=== PATIENT | male | born 2000 | race African-American/Black ===

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

== ENCOUNTER 2022-02-21 20:00 | Inpatient (IN) | payer OTHER ==
--- NOTE | 2022-02-21 20:40 | XR ---
EXAMINATION TYPE: XR chest 2V DATE OF EXAM: 02/21/2022 COMPARISON: 07/11/2016 HISTORY: Cough and congestion TECHNIQUE: FINDINGS: Heart is within normal limits. There is tracheostomy tube. There is pulmonary interstitial edema. There is some blunting of the costophrenic angles. Bony thorax is intact IMPRESSION: There is bilateral pleural effusions and some pulmonary interstitial and airspace infiltr ates that could relate to bilateral pneumonia. This appears new compared to the old exam. Heart size is normal.
[2022-02-21] MEDS ORDERED: IPRATROPIUM-ALBUTEROL 3 ML NEB INHALATION STA (21:11)
[2022-02-21] MEDS ORDERED: SODIUM CHLORIDE 0.9% 500 ML 500 ML IV STA (21:16)
--- NOTE | 2022-02-21 21:16 | ED ---
Chest Pain HPI - General Chief Complaint: Chest Pain Stated Complaint: Chest Pain/SIVAN Time Seen by Provider: 02/21/22 21:08 Source: patient, family, RN notes reviewed Mode of arrival: ambulatory Limitations: no limitations - History of Present Illness Initial Comments: 21-year-old male with a history of brain tumor and tracheostomy over a year ago who was recently treated for pneumonia and bronchitis antibiotics. He comes in today because of shortness of breath cough with yellow phlegm and chest pain with breathing and coughing. He also has some shortness of breath he denies any overt fevers chills or sweats at this time. MD Complaint: chest pain, other - Related Data Home Medications Medication Instructions Recorded Confirmed No Known Home Medications 02/18/16 04/17/19 Allergies Allergy/AdvReac Type Severity Reaction Status Date / Time No Known Allergies Allergy Verified 02/21/22 20:07 Review of Systems ROS Statement: Those systems with pertinent positive or pertinent negative responses have been documented in the HPI. ROS Other: All systems not noted in ROS Statement are negative. Past Medical History Past Medical History: No Reported History History of Any Multi-Drug Resistant Organisms: None Reported Past Surgical History: No Surgical Hx Reported Past Psychological History: ADD/ADHD Smoking Status: Current some day smoker Past Alcohol Use History: None Reported Past Drug Use History: None Reported, Marijuana General Exam - General Exam Comments Initial Comments: This is a well-developed asthenic appearing male was awake alert oriented 3 Limitations: no limitations General appearance: alert, anxious Head exam: Present: atraumatic, normocephalic, normal inspection Eye exam: Present: normal appearance, PERRL, EOMI. Absent: scleral icterus, conjunctival injection, periorbital swelling ENT exam: Present: normal exam, mucous membranes moist Neck exam: Present: full ROM, other (Tracheostomy in place). Absent: tenderness, meningismus, lymphadenopathy Respiratory exam: Present: rhonchi (Left lower lobe rhonchi), decreased breath sounds. Absent: respiratory distress, wheezes, rales, stridor Cardiovascular Exam: Present: normal rhythm, tachycardia, normal heart sounds. Absent: systolic murmur, diastolic murmur, rubs, gallop, clicks GI/Abdominal exam: Present: soft, normal bowel sounds. Absent: distended, tenderness, guarding, rebound, rigid Extremities exam: Present: normal inspection, full ROM, normal capillary refill. Absent: tenderness, pedal edema, joint swelling, calf tenderness Back exam: Present: normal inspection Neurological exam: Present: alert, oriented X3, CN II-XII intact Psychiatric exam: Present: normal affect, normal mood Skin exam: Present: warm, dry, intact, normal color. Absent: rash Course Vital Signs 02/21/22 02/21/22 02/21/22 20:02 21:42 21:52 Temperature 98.8 F Pulse Rate 121 H 120 H 120 H Respiratory 24 Rate Blood Pressure 133/87 O2 Sat by Pulse 92 L Oximetry Chest Pain MDM - MDM Imaging reviewed as well as reports evidence of bilateral lower lobe infiltrate. Patient will be admitted I did discuss the findings with Talha who is covering for Dr. Rodriguez patient be admitted with pulmonary consultation Disposition Clinical Impression: Bilateral pneumonia, Dehydration, Tachycardia, Back pain Disposition: ADMITTED IP TO THIS [facility] Condition: Fair Referrals: Nonstaff,Physician [Primary Care Provider] - 1-2 days Decision Date: 02/21/22 Decision Time: 22:50
[2022-02-21 22:36] LABS: Basophils % (A) 0 %; Eosinophils % (A) 1 %; HGB 12.8 gm/dL (13.0-17.5); Lymphocytes # (A) 1.1 k/uL (1.0-4.8); Lymphocytes % (A) 14 %; MCH 29.5 pg (25.0-35.0); MCV 92.1 fL (80.0-100.0); Mean Platelet Volume 7.5; Monocytes # (A) 0.3 k/uL (0-1.0); Monocytes % (A) 4 %; Neutrophils # (A) 6.4 k/uL (1.3-7.7); Neutrophils % (A) 80 %; Platelet Count 367 k/uL (150-450); RBC 4.35 m/uL (4.30-5.90)
[2022-02-21 22:46] LABS: Partial Thromboplastin Time 29.1 sec (22.0-30.0); Prothrombin Time 10.9 sec (9.0-12.0)
[2022-02-21 22:48] LABS: ALT 9 U/L (4-49); AST 22 U/L (17-59); African American GFR (CKD) >90 (>60 ml/min/1.73 sqM); Albumin 3.7 g/dL (3.5-5.0); Alkaline Phosphatase 92 U/L (38-126); Anion Gap 12 mmol/L; Blood Urea Nitrogen 20 mg/dL (9-20); Carbon Dioxide 29 mmol/L (22-30); Chloride 92 mmol/L (98-107); Glucose 92 mg/dL (74-99); Magnesium 2.1 mg/dL (1.6-2.3); Non-African American GFR(CKD) >90 (>60 ml/min/1.73 sqM); Potassium 4.6 mmol/L (3.5-5.1); Sodium 133 mmol/L (137-145); Total Bilirubin 0.4 mg/dL (0.2-1.3); Total Protein 7.7 g/dL (6.3-8.2)
[2022-02-21] MEDS ORDERED: IPRATROPIUM-ALBUTEROL 3 ML NEB INHALATION PRN (22:51)
[2022-02-21] MEDS ORDERED: PNEUMONIA PROTOCOL UTILIZED 1 EACH MISC PO PRN (22:51)
[2022-02-21] MEDS ORDERED: AZITHROMYCIN 500 MG in SODIUM CHLORIDE 0.9% 250 ML IVPB STA (22:51)
[2022-02-21] MEDS ORDERED: ACETAMINOPHEN TAB 325 MG TAB PO PRN (22:51)
[2022-02-21] MEDS ORDERED: HYDROmorphone 1 MG/ML 1 ML SYRINGE IVP STA (22:53)
[2022-02-21] MEDS: SODIUM CHLORIDE 0.9% 1,000 ML IV STA (23:21)
[2022-02-21] MEDS ORDERED: HEPARIN SODIUM 1,000 UN/ML (10ML VL) IV ONE (23:28)
[2022-02-21] MEDS ORDERED: ASPIRIN 81 MG PO STA (23:28)
[2022-02-21] MEDS ORDERED: NITROGLYCERIN SL TABS 0.4 MG TAB SUBLINGUAL PRN (23:28)
--- NOTE | 2022-02-21 23:28 | ED ---
Medical Decision Making - Medical Decision Making The patient's troponin came back elevated at 0.166 is in the NSTEMI range. Cardiology will be consulted in the a.m. EKG at the time of treatment showed a sinus tachycardia rate 138 DC interval 142 QRS duration 99 QT/QTC 254/334 left posterior fascicular block no definitive ST-T wave elevations or depressions - Lab Data Result diagrams: 02/21/22 21:29 02/21/22 21:29 Lab Results 02/21/22 02/21/22 02/21/22 Range/Units 21:29 21:29 21:29 WBC 8.0 (3.8-10.6) k/uL RBC 4.35 (4.30-5.90) m/uL Hgb 12.8 L (13.0-17.5) gm/dL Hct 40.0 (39.0-53.0) % MCV 92.1 (80.0-100.0) fL MCH 29.5 (25.0-35.0) pg MCHC 32.0 (31.0-37.0) g/dL RDW 14.0 (11.5-15.5) % Plt Count 367 (150-450) k/uL MPV 7.5 Neutrophils % 80 % Lymphocytes % 14 % Monocytes % 4 % Eosinophils % 1 % Basophils % 0 % Neutrophils # 6.4 (1.3-7.7) k/uL Lymphocytes # 1.1 (1.0-4.8) k/uL Monocytes # 0.3 (0-1.0) k/uL Eosinophils # 0.0 (0-0.7) k/uL Basophils # 0.0 (0-0.2) k/uL PT 10.9 (9.0-12.0) sec INR 1.0 (<1.2) APTT 29.1 (22.0-30.0) sec Sodium 133 L (137-145) mmol/L Potassium 4.6 (3.5-5.1) mmol/L Chloride 92 L (98-107) mmol/L Carbon Dioxide 29 (22-30) mmol/L Anion Gap 12 mmol/L BUN 20 (9-20) mg/dL Creatinine 0.75 (0.66-1.25) mg/dL Est GFR (CKD-EPI)AfAm >90 (>60 ml/min/1.73 sqM) Est GFR (CKD-EPI)NonAf >90 (>60 ml/min/1.73 sqM) Glucose 92 (74-99) mg/dL Plasma Lactic Acid Filipe (0.7-2.0) mmol/L Calcium 9.0 (8.4-10.2) mg/dL Magnesium 2.1 (1.6-2.3) mg/dL Total Bilirubin 0.4 (0.2-1.3) mg/dL AST 22 (17-59) U/L ALT 9 (4-49) U/L Alkaline Phosphatase 92 (38-126) U/L Troponin I (0.000-0.034) ng/mL NT-Pro-B Natriuret Pep pg/mL Total Protein 7.7 (6.3-8.2) g/dL Albumin 3.7 (3.5-5.0) g/dL 02/21/22 02/21/22 02/21/22 Range/Units 21:29 21:29 22:00 WBC (3.8-10.6) k/uL RBC (4.30-5.90) m/uL Hgb (13.0-17.5) gm/dL Hct (39.0-53.0) % MCV (80.0-100.0) fL MCH (25.0-35.0) pg MCHC (31.0-37.0) g/dL RDW (11.5-15.5) % Plt Count (150-450) k/uL MPV Neutrophils % % Lymphocytes % % Monocytes % % Eosinophils % % Basophils % % Neutrophils # (1.3-7.7) k/uL Lymphocytes # (1.0-4.8) k/uL Monocytes # (0-1.0) k/uL Eosinophils # (0-0.7) k/uL Basophils # (0-0.2) k/uL PT (9.0-12.0) sec INR (<1.2) APTT (22.0-30.0) sec Sodium (137-145) mmol/L Potassium (3.5-5.1) mmol/L Chloride (98-107) mmol/L Carbon Dioxide (22-30) mmol/L Anion Gap mmol/L BUN (9-20) mg/dL Creatinine (0.66-1.25) mg/dL Est GFR (CKD-EPI)AfAm (>60 ml/min/1.73 sqM) Est GFR (CKD-EPI)NonAf (>60 ml/min/1.73 sqM) Glucose (74-99) mg/dL Plasma Lactic Acid Filipe 1.0 (0.7-2.0) mmol/L Calcium (8.4-10.2) mg/dL Magnesium (1.6-2.3) mg/dL Total Bilirubin (0.2-1.3) mg/dL AST (17-59) U/L ALT (4-49) U/L Alkaline Phosphatase (38-126) U/L Troponin I 0.166 H* (0.000-0.034) ng/mL NT-Pro-B Natriuret Pep 1800 pg/mL Total Protein (6.3-8.2) g/dL Albumin (3.5-5.0) g/dL Critical Care Time Critical Care Time: Yes Total Critical Care Time: 39 Critical Care Time: This included the initial presentation with history physical labs x-rays multiple re-evaluations the patient discussed with the patient and admitting service admission orders documentation the above Disposition Clinical Impression: Bilateral pneumonia, Dehydration, Tachycardia, Back pain, Non-STEMI (non-ST elevated myocardial infarction) Disposition: ADMITTED IP TO THIS [facility] Condition: Fair
[2022-02-21] MEDS ORDERED: HEPARIN SOD,PORK IN 0.45% NACL 25,000 UNIT in 0.45% NACL 1 250ML.BAG IV SCH (23:30)
[2022-02-22] MEDS: SODIUM CHLORIDE 0.9% 1,000 ML IV STA (01:36)
[2022-02-22] MEDS: HYDROmorphone 1 MG/ML 1 ML SYRINGE IVP PRN ×5 (02:24→21:24)
--- NOTE | 2022-02-22 07:42 | XR ---
EXAMINATION TYPE: XR chest 2V DATE OF EXAM: 02/22/2022 COMPARISON: 02/21/2022 HISTORY: Chest pain TECHNIQUE: Frontal and lateral views of the chest are obtained. FINDINGS: Tracheostomy tube is in place. Perihilar and basilar infiltrates persist with mild interval progressi on suggested. No evidence for pneumothorax. No pleural effusion. The cardiac silhouette size is within normal limits. The osseous structures are grossly intact. IMPRESSION: 1. Perihilar and basilar infiltrates persist with mild interval progression suggested.
[2022-02-22] MEDS ORDERED: SODIUM CHLORIDE 0.9% 1,000 ML IV ONE (09:36)
--- NOTE | 2022-02-22 09:51 | P.HPIM ---
History of Present Illness This is a pleasant 21 years old male with no significant past medical history. Presents last night because ofright-sided chest pain, patient states that he has history of brain tumor and he is been done with his chemo and radiotherapy about 20 years ago. He is status post tracheostomy and PEG tube because of that. Patient states that he has a lot of secretion at baseline and history tracheostomy help him with getting an MRI. His oncologist is out of town in [place]. Last month his oncologist prescribed him antibiotic for bronchitis. This time he presents because of hard for him to breathe because it hurts whenever he takes deep breath on the right lower lung. He has chronic cough but also he is making some yellow phlegm for about a week. Patient has been constipated and did not have a ball for about 2 weeks also has been complaining of from mild bilateral abdominal pain about 5/10 Mindy no bowel movement or passing gas, but he was getting bolus of tube feeding through his PEG tube. He denies headache or dizziness, no weakness or numbness, no urinary complaints however repeat this morning about 600 mL Also he is generally weak. He denies smoking, alcohol or illicit drugs On admission his been febrile however he was tachycardic with heart rate 122 135. Also he is tachypneic and short of breath with a rate of 20, blood pressure is on the low side, last one cell maker was 95/56. Visually his blood pressure systolic is 140-160. On admission his CBC is unremarkable except for low hemoglobin at 12.8. INR is 1.3. Sodium 133, creatinine normal 0.7. Liver enzymes not elevated. Gabriela is elevated 0.16, 0.2, 0.19. ProBNP is 1800. Coronavirus not detected. EKG showing sinus tachycardia with a rate of 138, QTC 334. No significant ST-T changes. Chest x-ray showing perihilar and basilar infiltrates presents with mild interval progression suggested by radiologist. When I reviewed the chest x-ray looks like patient has more right lower lobe infiltrate On admission he was started on ceftriaxone and Zithromax as well as heparin drip and aspirin. Versed 500 bolus and continued on normal saline at 1:30 milliliters per hour for about 1 L. Cardiology and pulmonary services were consulted Review of Systems CONSTITUTIONAL: No fever, no malaise, no fatigue. HEENT: No recent visual problems or hearing problems. Denied any sore throat. CARDIOVASCULAR: No orthopnea, PND, no palpitations, no syncope. PULMONARY: No chest wall tenderness, no hemoptysis. GASTROINTESTINAL: No diarrhea, no nausea, no vomiting, Normoactive bowel sounds. NEUROLOGICAL: No headaches, no weakness, no numbness. HEMATOLOGICAL: Denies any bleeding or petechiae. GENITOURINARY: Denies any burning micturition, frequency, or urgency. MUSCULOSKELETAL/RHEUMATOLOGICAL: Denies any joint pain, swelling, or any muscle pain. ENDOCRINE: Denies any polyuria or polydipsia. Past Medical History Past Medical History: No Reported History History of Any Multi-Drug Resistant Organisms: None Reported Past Surgical History: No Surgical Hx Reported Past Anesthesia/Blood Transfusion Reactions: No Reported Reaction Past Psychological History: ADD/ADHD Smoking Status: Current some day smoker Past Alcohol Use History: None Reported Past Drug Use History: None Reported, Marijuana Medications and Allergies Home Medications Medication Instructions Recorded Confirmed Type No Known Home Medications 02/18/16 04/17/19 History Allergies Allergy/AdvReac Type Severity Reaction Status Date / Time No Known Allergies Allergy Verified 02/21/22 20:07 Physical Exam Vitals: Vital Signs Temp Pulse Pulse Resp BP BP Pulse Ox 02/22/22 04:00 97.6 F 134 H 20 95/56 96 02/22/22 01:31 98.5 F 135 H 20 107/61 95 02/22/22 01:08 98.5 F 135 H 20 107/61 02/21/22 21:52 120 H 02/21/22 21:42 120 H 02/21/22 20:02 98.8 F 121 H 24 133/87 92 L Intake and Output 02/21/22 02/22/22 02/22/22 22:59 06:59 14:59 Intake Total 1040 Balance 1040 Intake: Intake, IV Titration 1040 Amount Sodium Chloride 0.9% 1, 1040 000 ml @ 130 mls/hr IV . Q7H42M STA Rx#:[id number] Other: # Voids 1 Weight 58.967 kg 58.967 kg GENERAL: The patient is alert and oriented x3, not in any acute distress. Well developed, well nourished. HEENT: Pupils are round and equally reacting to light. EOMI. No scleral icterus. No conjunctival pallor. Normocephalic, atraumatic. No pharyngeal erythema. No thyromegaly. Status post tracheostomy CARDIOVASCULAR: S1 and S2 present. No murmurs, rubs, or gallops. PULMONARY: Chest is clear to auscultation, no wheezing or crackles. ABDOMEN: Soft, nontender, nondistended, normoactive bowel sounds. No palpable organomegaly. Status post PEG tube MUSCULOSKELETAL: No joint swelling or deformity. EXTREMITIES: No cyanosis, clubbing, or pedal edema. NEUROLOGICAL: Gross neurological examination did not reveal any focal deficits. SKIN: No rashes. No petechiae Results CBC & Chem 7: 02/21/22 21:29 02/21/22 21:29 Labs: Abnormal Lab Results - Last 24 Hours (Table) 02/21/22 02/21/22 02/21/22 Range/Units 21:29 21:29 21:29 Hgb 12.8 L (13.0-17.5) gm/dL Sodium 133 L (137-145) mmol/L Chloride 92 L (98-107) mmol/L Troponin I 0.166 H* (0.000-0.034) ng/mL 02/22/22 02/22/22 Range/Units 00:12 03:59 Hgb (13.0-17.5) gm/dL Sodium (137-145) mmol/L Chloride (98-107) mmol/L Troponin I 0.200 H* 0.199 H* (0.000-0.034) ng/mL Thrombosis Risk Factor Assmnt - Choose All That Apply Any of the Below Risk Factors Present?: No Other Risk Factors: No Other congenital or acquired thrombophilia - If yes, enter type in comment: No Thrombosis Risk Factor Assessment Level: Very Low Risk Assessment and Plan Assessment: Bilateral lower lobe pneumonia, more in the right lower lung. Rule out asp iration versus gram-negative bacteria are atypical. Sepsis with tachycardia and tachypnea Acute hypotension secondary to above Elevated troponin, rule out cardiac causes Sinus tachycardia, secondary to above History of brain tumor, finish his chemoradiotherapy. Follow-up with oncologist as an outpatient History of dysphagia status post PEG tube, also he is status post tracheostomy Plan: This is a pleasant 21 who Presents with bilateral pneumonia and sepsis. Give bolus of normal saline and keep monitoring blood pressure Continue with antibiotics. Change Rocephin and to Zosyn and continue with Zithromax. Follow-up sputum culture. Follow-up heart rate. Goods Layer on pulmonary team consult on the case. Following the recommendation. Resume tube feeding slowly, with checking residual dietary consult. Discussed with bed side nurse Check bladder scan. Check KUB Labs and medication were reviewed.. Continue same treatment. Continue with symptomatic treatment. Resume home medication. Monitor lytes and vitals. DVT and GI prophylaxis. Further recommendations depends on the clinical course of the patient DVT prophylaxis: heparin GI Prophylaxis: Pepcid Prognosis is guarded
--- NOTE | 2022-02-22 10:43 | XR ---
EXAMINATION TYPE: XR KUB DATE OF EXAM: 02/22/2022 COMPARISON: NONE HISTORY: Pain TECHNIQUE: Single supine KUB image of the abdomen is obtained FINDINGS: Small bowel demonstrates no evidence for dilatation or air fluid levels. Gas and fecal material is seen in non-distended colon. No convincing evidence for pneumoperitoneum. No unusual calcifications. Basilar infiltrates are noted. Correlate for pneumonia. The osseous structures are intact. IMPRESSION: 1. Overall nonobstructive bowel gas pattern. 2. Basilar infiltrates are noted. Correlate for pneumonia.
--- NOTE | 2022-02-22 11:31 | P.CNPUL ---
History of Present Illness Consult date: 02/22/22 Requesting physician: Emilee Rodriguez Reason for consult: dyspnea, cough, pneumonia, abnormal CXR/CT Chief complaint: Pneumonia. History of present illness: Pulmonary consult dated 02/22/2022. 21-year-old black male, with a previous history of brain cancer, status post surgical excision, as well as chemoradiation. All of his care is out of [facility]. The patient apparently required tracheostomy about a year ago, and also was recently treated by his oncologist, for bro nchitis/pneumonia, with antibiotics. The patient presents to the emergency department with difficulty breathing, chest congestion, chest pain, cough, phlegm production. He denied any fever or chills. The patient had a chest x- ray which showed bibasilar infiltrates. He was admitted with a diagnosis of pneumonia. The patient has no other significant past medical history although the patient did have a PEG tube. As mentioned, the tracheostomy has been present for about one year. White count 8, hemoglobin 12.8, hematocrit 40, and platelet count normal. Sodium 133, potassium 4.6, chlorides 92, CO2 29, anion gap 12, BUN 20, and creatinine 0.75. Troponins were 0.166 and 0.199. N- terminal proBNP was 1800. Testing for hernandez virus, as well as influenza, was negative. Chest x-ray shows bibasilar infiltrates. Review of Systems REVIEW OF SYSTEMS: CONSTITUTIONAL: [Negative.] NEUROLOGIC: [ Negative.] HEENT: [ Negative.] CARDIAC: [Negative.] PULMONARY: Shortness of breath, chest congestion, cough, and phlegm production. GI: [Negative.] : [Negative.] RHEUMATOLOGIC: [ Negative.] IMMUNOLOGIC: [ Negative.] ENDOCRINE: [Negative. ] DERMATOLOGIC: [Negative.] Past Medical History Past Medical History: No Reported History History of Any Multi-Drug Resistant Organisms: None Reported Past Surgical History: No Surgical Hx Reported Past Anesthesia/Blood Transfusion Reactions: No Reported Reaction Past Psychological History: ADD/ADHD Smoking Status: Current some day smoker Past Alcohol Use History: None Reported Past Drug Use History: None Reported, Marijuana Medications and Allergies Home Medications Medication Instructions Recorded Confirmed Type No Known Home Medications 02/18/16 04/17/19 History Allergies Allergy/AdvReac Type Severity Reaction Status Date / Time No Known Allergies Allergy Verified 02/21/22 20:07 Physical Exam Osteopathic Statement: *. No significant issues noted on an osteopathic structural exam other than those noted in the History and Physical/Consult. Vitals: Vital Signs Temp Pulse Pulse Resp BP BP Pulse Ox 02/22/22 08:00 134 H 20 02/22/22 04:00 97.6 F 134 H 20 95/56 96 02/22/22 01:31 98.5 F 135 H 20 107/61 95 02/22/22 01:08 98.5 F 135 H 20 107/61 02/21/22 21:52 120 H 02/21/22 21:42 120 H 02/21/22 20:02 98.8 F 121 H 24 133/87 92 L Intake and Output 02/21/22 02/22/22 02/22/22 22:59 06:59 14:59 Intake Total 1040 Output Total 600 Balance 1040 -600 Intake: Intake, IV Titration 1040 Amount Sodium Chloride 0.9% 1, 1040 000 ml @ 130 mls/hr IV . Q7H42M STA Rx#:[id number] Output: Urine 600 Other: # Voids 1 Weight 58.967 kg 58.967 kg No acute distress, oriented 3. The patient is on a 28% trach collar. HEENT examination is grossly unremarkable. Neck supple. Full range of motion. No adenopathy thyromegaly or neck vein dist ention. Midline tracheostomy noted. Cardiovascular examination reveals regular rhythm rate. S1-S2 normal. No S3 or S4. No discernible murmur noted. Heart sounds are distant. Heart rate about 105 bpm. Lungs reveal bilateral scattered moderate rhonchi. No wheezes. No crackles. Breath sounds equal bilaterally. Saturations are 96%. Abdomen soft, with bowel sounds. No masses or tenderness. PEG tube noted. Extremities are intact. No cyanosis clubbing or edema. Skin is without rash or lesion. Neurologic examination is brief but nonfocal. Results - Laboratory Findings CBC and BMP: 02/21/22 21:29 02/21/22 21:29 PT/INR, D-dimer PT 10.9 sec (9.0-12.0) 02/21/22 21:29 INR 1.0 (<1.2) 02/21/22 21:29 Abnormal lab findings: Abnormal Labs 02/21/22 02/21/22 02/21/22 21:29 21:29 21:29 Hgb 12.8 L Sodium 133 L Chloride 92 L Troponin I 0.166 H* 02/22/22 02/22/22 00:12 03:59 Hgb Sodium Chloride Troponin I 0.200 H* 0.199 H* - Diagnostic Findings Chest x-ray: image reviewed Assessment and Plan Assessment: Acute hypoxemic respiratory failure secondary to bilateral pneumonia. History of brain cancer, status post surgical excision, and chemoradiation. Previous history of tracheostomy and PEG tube placement. Recent treatment for bronchitis by his medical oncologist. Plan: Plan dated 02/22/2022. The patient is currently on antibiotics. He is not manifesting any signs or symptoms of respiratory distress. We will continue to follow and make recommendations where appropriate. The patient is getting updrafts with albuterol sulfate and ipratropium bromide. He should have sputum sample sent, as well as blood cultures performed. Additional recommendations are f orthcoming. Repeat chest x-ray in a day or 2. Prognosis is guarded. Time with Patient: Greater than 30
[2022-02-22] MEDS: PIPERACILLIN-TAZOBACTAM 3.375 GM in SODIUM CHLORIDE 0.9% 100 ML IVPB SCH ×3 (11:40→23:52)
[2022-02-22] MEDS: ASPIRIN 325 MG TAB PO SCH (11:42)
--- NOTE | 2022-02-22 12:24 | P.CRDCN ---
History of Present Illness Consult date: 02/22/22 Consult reason: chest pain History of present illness: The patient is a 21-year-old male with past medical history of brain cancer, who presented to the hospital with worsening shortness of breath. He was recently treated for pneumonia by his oncologist, however his shortness of breath continued to progress. Cardiology has been consulted for abnormal troponin levels. At the time of the examination, the patient reported pleuritic chest discomfort along his right chest wall. This is worsened by deep breathing. He does have shortness of breath. No chest pressure. No dizziness, lightheadedness, or palpitations. DIAGNOSTICS: EKG shows sinus tachycardia without ST or T-wave abnormalities Chest x-ray shows perihilar and basilar and filtrates indicating bilateral pneumonia Lab data: WBC 8.0, hemoglobin 12.8, hematocrit 40.0, platelet 367, sodium 133, potassium 4.6, BUN 20, creatinine 0.78, AST 22, ALT 9, BNP 1800, troponin 0.1, 0.2, 0.1 Vital signs: Blood pressure 95/56, heart rate 1:30, SpO2 96% on 4 L trach collar, SpO2 97.6F PAST MEDICAL HISTORY: Brain cancer, tracheostomy, PEG tube placement REVIEW OF SYSTEMS: No fever or chills. No cough or expectoration. No diaphoresis. Patient denies headache, dizziness, blurred vision, double vision. Patient denies any stomach discomfort. No nausea, vomiting. No hematochezia. No hematemesis. Denies any black stools or blood in his stools. Denies dysuria or hematuria. PHYSICAL EXAMINATION: This is a 21-year-old anorexic male in no apparent distress at the time of my examination. HEENT: Head is atraumatic, normocephalic. Pupils are equal, round. Sclerae anicteric. Conjunctivae are clear. Mucous membranes of the mouth are moist. Tracheostomy. There is no jugular venous distention. No carotid bruit is heard. CHEST EXAMINATION: Lungs are rhonchorous to auscultation. Bilateral crackles noted. Pleuritic chest pain to inspiration. HEART EXAMINATION: Heart regular rate and rhythm. S1, S2 heard. Notably tachycardic. No murmurs, gallops or rub. ABDOMEN: Soft, nontender. Bowel sounds are heard. No organomegaly noted. PEG tube in place EXTREMITIES: 2+ peripheral pulses with no evidence of peripheral edema and no calf tenderness noted. NEUROLOGIC EXAMINATION: Patient is awake, alert and oriented x3. FINAL ASSESSMENT AND PLAN: Abnormal troponin, likely secondary to sepsis, not indicative of acute coronary syndrome Bilateral pneumonia Sinus tachycardia, secondary to septicemia Elevated BNP, echocardiogram pending PLAN: Continue supportive treatment Echocardiogram and Doppler study to be done Further recommendations to be based upon clinical course I am dictating on behalf of Dr Alex Sebastian's history/physical and assessment/plan. Past Medical History Past Medical History: No Reported History History of Any Multi-Drug Resistant Organisms: None Reported Past Surgical History: No Surgical Hx Reported Past Anesthesia/Blood Transfusion Reactions: No Reported Reaction Past Psychological History: ADD/ADHD Smoking Status: Current some day smoker Past Alcohol Use History: None Reported Past Drug Use History: None Reported, Marijuana Medications and Allergies Home Medications Medication Instructions Recorded Confirmed Type No Known Home Medications 02/18/16 04/17/19 History Allergies Allergy/AdvReac Type Severity Reaction Status Date / Time No Known Allergies Allergy Verified 02/21/22 20:07 Physical Exam Vitals: Vital Signs Temp Pulse Pulse Resp BP BP Pulse Ox 02/22/22 11:24 02/22/22 08:00 134 H 20 02/22/22 04:00 97.6 F 134 H 20 95/56 96 02/22/22 01:31 98.5 F 135 H 20 107/61 95 02/22/22 01:08 98.5 F 135 H 20 107/61 02/21/22 21:52 120 H 02/21/22 21:42 120 H 02/21/22 20:02 98.8 F 121 H 24 133/87 92 L FiO2 02/22/22 11:24 28 02/22/22 08:00 02/22/22 04:00 02/22/22 01:31 02/22/22 01:08 02/21/22 21:52 02/21/22 21:42 02/21/22 20:02 Intake and Output 02/21/22 02/22/22 02/22/22 22:59 06:59 14:59 Intake Total 1040 Output Total 600 Balance 1040 -600 Intake: Intake, IV Titration 1040 Amount Sodium Chloride 0.9% 1, 1040 000 ml @ 130 mls/hr IV . Q7H42M STA Rx#:[id number] Output: Urine 600 Other: # Voids 1 Weight 58.967 kg 58.967 kg Results 02/21/22 21:29 02/21/22 21:29 Cardiac Enzymes 02/21/22 02/21/22 02/22/22 Range/Units 21:29 21:29 00:12 AST 22 (17-59) U/L Troponin I 0.166 H* 0.200 H* (0.000-0.034) ng/mL 02/22/22 Range/Units 03:59 AST (17-59) U/L Troponin I 0.199 H* (0.000-0.034) ng/mL Coagulation 02/21/22 02/22/22 Range/Units 21:29 06:30 PT 10.9 (9.0-12.0) sec APTT 29.1 29.8 (22.0-30.0) sec CBC 02/21/22 Range/Units 21:29 WBC 8.0 (3.8-10.6) k/uL RBC 4.35 (4.30-5.90) m/uL Hgb 12.8 L (13.0-17.5) gm/dL Hct 40.0 (39.0-53.0) % Plt Count 367 (150-450) k/uL Comprehensive Metabolic Panel 02/21/22 Range/Units 21:29 Sodium 133 L (137-145) mmol/L Potassium 4.6 (3.5-5.1) mmol/L Chloride 92 L (98-107) mmol/L Carbon Dioxide 29 (22-30) mmol/L BUN 20 (9-20) mg/dL Creatinine 0.75 (0.66-1.25) mg/dL Glucose 92 (74-99) mg/dL Calcium 9.0 (8.4-10.2) mg/dL AST 22 (17-59) U/L ALT 9 (4-49) U/L Alkaline Phosphatase 92 (38-126) U/L Total Protein 7.7 (6.3-8.2) g/dL Albumin 3.7 (3.5-5.0) g/dL Current Medications Generic Name Dose Route Start Last Admin Trade Name Freq PRN Reason Stop Dose Admin Acetaminophen 650 mg 02/21/22 22:51 Acetaminophen Tab 325 Mg Tab PO Q4HR PRN Fever and/ or Pain Albuterol/Ipratropium 3 ml 02/21/22 22:51 Ipratropium-Albuterol 3 Ml Neb INHALATION RT-Q4H PRN shortness of breath Aspirin 325 mg 02/22/22 09:00 02/22/22 11:42 Aspirin 325 Mg Tab PO Not Given DAILY [facility] Azithromycin 500 mg 02/22/22 21:00 Azithromycin 500 Mg Tab PO 02/23/22 09:01 DAILY [facility] Protocol Heparin Sodium (Porcine) 5,000 unit 02/22/22 21:00 Heparin Sodium,Porcine/Pf 5,000 Unit/0.5 Ml Syringe SQ Q12HR [facility] Hydromorphone HCl 1 mg 02/22/22 02:13 02/22/22 11:41 Hydromorphone 1 Mg/Ml 1 Ml Syringe IVP 1 mg Q4HR PRN Administration Pain Piperacillin Sod/Tazobactam 100 mls @ 25 mls/hr 02/22/22 10:00 02/22/22 11:40 Sod 3.375 gm/ Sodium Chloride IVPB 25 mls/hr Q8HR [facility]I Administration Protocol Miscellaneous Information 1 each 02/21/22 22:51 Pneumonia Protocol Utilized 1 Each Misc PO ONCE PRN Per Protocol Nitroglycerin 0.4 mg 02/21/22 23:28 Nitroglycerin Sl Tabs 0.4 Mg Tab SUBLINGUAL Q5M PRN Chest Pain Intake and Output 02/21/22 02/22/22 02/22/22 22:59 06:59 14:59 Intake Total 1040 Output Total 600 Balance 1040 -600 Intake: Intake, IV Titration 1040 Amount Sodium Chloride 0.9% 1, 1040 000 ml @ 130 mls/hr IV . Q7H42M STA Rx#:[id number] Output: Urine 600 Other: # Voids 1 Weight 58.967 kg 58.967 kg 02/21/22 21:29 02/21/22 21:29
[2022-02-22 12:26] LABS: LDL Cholesterol,Calculated 39.6 mg/dL (0.0-131.0)
[2022-02-22] MEDS ORDERED: SODIUM CHLORIDE 0.9% 500 ML 500 ML IV ONE (15:28)
[2022-02-22] MEDS: AZITHROMYCIN 500 MG TAB PO SCH (21:23)
[2022-02-22] MEDS: HEPARIN SODIUM,PORCINE/PF 5,000 UNIT/0.5 ML SYRINGE SQ SCH (21:24)
[2022-02-23 00:22] LABS: Glucose,Whole Blood 96 mg/dL (70-110)
[2022-02-23] MEDS: HYDROmorphone 1 MG/ML 1 ML SYRINGE IVP PRN ×3 (01:20→21:17)
[2022-02-23 06:03] LABS: Glucose,Whole Blood 120 mg/dL (70-110)
[2022-02-23] MEDS: HEPARIN SODIUM,PORCINE/PF 5,000 UNIT/0.5 ML SYRINGE SQ SCH ×2 (08:51→21:17)
[2022-02-23] MEDS: PIPERACILLIN-TAZOBACTAM 3.375 GM in SODIUM CHLORIDE 0.9% 100 ML IVPB SCH ×3 (08:52→23:51)
[2022-02-23] MEDS: AZITHROMYCIN 500 MG TAB PO SCH (08:52)
[2022-02-23] MEDS: ASPIRIN 325 MG TAB PO SCH (10:32)
[2022-02-23] MEDS: SODIUM CHLORIDE 0.9% 1,000 ML IV SCH ×2 (10:35→23:52)
[2022-02-23 11:00] LABS: African American GFR (CKD) >90 (>60 ml/min/1.73 sqM); Anion Gap 0 mmol/L; Blood Urea Nitrogen 6 mg/dL (9-20); Carbon Dioxide 34 mmol/L (22-30); Chloride 104 mmol/L (98-107); Glucose 110 mg/dL (74-99); Non-African American GFR(CKD) >90 (>60 ml/min/1.73 sqM); Potassium 4.5 mmol/L (3.5-5.1); Sodium 138 mmol/L (137-145)
[2022-02-23 12:00] LABS: Glucose,Whole Blood 102 mg/dL (70-110)
[2022-02-23] MEDS: PANTOPRAZOLE 40 MG/10 ML VIAL IVP SCH (13:00)
--- NOTE | 2022-02-23 13:36 | P.PN ---
Subjective Progress Note Date: 02/23/22 HISTORY OF PRESENT ILLNESS: The patient is a 21-year-old male with past medical history of brain cancer, who presented to the hospital with worsening shortness of breath. He was recently treated for pneumonia by his oncologist, however his shortness of breath continued to progress. Cardiology has been consulted for abnormal troponin levels. At the time of the examination, the patient reported pleuritic chest discomfort along his right chest wall. This is worsened by deep breathing. He does have shortness of breath. No chest pressure. No dizziness, lightheadedness, or palpitations. DIAGNOSTICS: EKG shows sinus tachycardia without ST or T-wave abnormalities Chest x-ray shows perihilar and basilar and filtrates indicating bilateral pneumonia Lab data: WBC 8.0, hemoglobin 12.8, hematocrit 40.0, platelet 367, sodium 133, potassium 4.6, BUN 20, creatinine 0.78, AST 22, ALT 9, BNP 1800, troponin 0.1, 0.2, 0.1 Vital signs: Blood pressure 95/56, heart rate 1:30, SpO2 96% on 4 L trach collar, SpO2 97.6F 02/23/2022 Patient examined this morning at the bedside. He denies chest pain or pressure. Denies SOB. He remains slightly tachycardic. PHYSICAL EXAM: VITAL SIGNS: Reviewed. GENERAL: Well-developed in no acute distress. NECK: Supple. No JVD or thyromegaly LUNGS: Respirations even and unlabored. Lungs diminished with bilateral rhonchi. HEART: Regular rate and rhythm. S1 and S2 heard. EXTREMITIES: Normal range of motion. No clubbing or cyanosis. Peripheral pulses intact. No lower extremity edema ASSESSMENT: Abnormal troponin, likely secondary to sepsis, not indicative of acute coronary syndrome Bilateral pneumonia Sinus tachycardia, secondary to septicemia Elevated BNP, echocardiogram pending PLAN: Patients troponin elevation likely secondary to sepsis. 2D echo ordered. If no significant abnormalities noted on echo, we will sign off. Nurse practitioner note has been reviewed by physician. Signing provider agrees with the documented findings, assessment, and plan of care. Objective - Vital Signs Vital signs: Vital Signs Temp 98.9 F 02/23/22 08:47 Pulse 61 02/23/22 12:56 Resp 18 02/23/22 12:56 BP 99/61 02/23/22 12:56 Pulse Ox 98 02/23/22 12:56 FiO2 28 02/22/22 11:24 Intake & Output 02/22/22 02/23/22 02/23/22 18:59 06:59 18:59 Intake Total 400 Output Total 600 600 350 Balance -200 -600 -350 Weight 58.967 kg Intake: Oral 400 Output: Urine 600 600 350 - Labs CBC & Chem 7: 02/21/22 21:29 02/23/22 10:07 Labs: Abnormal Lab Results - Last 24 Hours (Table) 02/23/22 02/23/22 Range/Units 06:01 10:07 Carbon Dioxide 34 H (22-30) mmol/L BUN 6 L (9-20) mg/dL Creatinine 0.61 L (0.66-1.25) mg/dL Glucose 110 H (74-99) mg/dL POC Glucose (mg/dL) 120 H (70-110) mg/dL Calcium 8.0 L (8.4-10.2) mg/dL Microbiology - Last 24 Hours (Table) 02/22/22 10:20 Gram Stain - Preliminary Sputum Sputum Culture - Preliminary Gram Neg Bacilli 02/21/22 22:00 Blood Culture - Preliminary Blood No Growth after 24 hours 02/21/22 22:15 Blood Culture - Preliminary Blood No Growth after 24 hours
--- NOTE | 2022-02-23 14:01 | P.PN ---
Subjective Progress Note Date: 02/23/22 On today's evaluation of 02/23/2022, the patient is doing well. His overall weak and debilitated related to his underlying brain cancer. He is nothing by mouth and is receiving enteral feeding for nutritional support and this is running at the rate of 20 mL an hour of Jevity. No reported aspiration for now. There is a high concern for aspiration and the patient came in with hypoxic respiratory failure the patient has lower lobe at the pulmonary infiltrates. He continues to have thick purulent respiratory secretions being suctioned from his tracheostomy tube. A #6 Shiley tracheostomy tube and is using a 5 L of oxygen by nasal cannula and is able to maintenance saturation above 90%. No altered mentation. No chest pain. Cough and generally is weak. Receiving normal saline at rate of 75 mL an hour. Remains on IV Zosyn. Blood work from today shows a sodium level of 138 with a BUN of 6 and a creatinine of 0.6. The preliminary Gram stain is positive for gram-negative bacillus. Objective - Vital Signs Vital signs: Vital Signs Temp 98.9 F 02/23/22 08:47 Pulse 116 H 02/23/22 08:47 Resp 20 02/23/22 08:47 BP 92/53 02/23/22 08:47 Pulse Ox 97 02/23/22 08:47 FiO2 28 02/22/22 11:24 Intake & Output 02/22/22 02/23/22 02/23/22 18:59 06:59 18:59 Intake Total 400 Output Total 600 600 350 Balance -200 -600 -350 Intake: Oral 400 Output: Urine 600 600 350 - Exam No acute distress, oriented 3. Patient is, comfortable and the patient is using 5 L of oxygen by nasal cannula Head exam was generally normal. There was no scleral icterus or corneal arcus. Mucous membranes were moist. HEENT examination is grossly unremarkable. Neck supple. Full range of motion. No adenopathy thyromegaly or neck vein distention. Midline tracheostomy noted. The patient is #6 Shiley tracheostomy tube in place. Breathing is nonlabored this point in time. Cardiovascular examination reveals regular rhythm rate. S1-S2 normal. No S3 or S4. No discernible murmur noted. Heart sounds are distant. Lungs reveal bilateral scattered moderate rhonchi. The patient has crackles in lung bases bilaterally patient scattered rhonchi Abdomen soft, with bowel sounds. No masses or tenderness. PEG tube noted. The patient has a PEG tube in place and exit site is dry clean and intact Extremities are intact. No cyanosis clubbing or edema. Skin is without rash or lesion. Neurologic examination is brief but nonfocal. - Labs CBC & Chem 7: 02/21/22 21:29 02/23/22 10:07 Labs: Abnormal Lab Results - Last 24 Hours (Table) 02/22/22 02/23/22 Range/Units 06:30 06:01 POC Glucose (mg/dL) 120 H (70-110) mg/dL HDL Cholesterol 14.80 L (40.00-60.00) mg/dL Microbiology - Last 24 Hours (Table) 02/22/22 10:20 Gram Stain - Preliminary Sputum Sputum Culture - Preliminary 02/21/22 22:00 Blood Culture - Preliminary Blood No Growth after 24 hours 02/21/22 22:15 Blood Culture - Preliminary Blood No Growth after 24 hours Assessment and Plan Plan: Acute hypoxemic respiratory failure secondary to bilateral pneumonia, rule out aspiration and he is on IV Zosyn, on 5 liters 02 NC, highly considered an underlying aspiration pneumonia based on his condition clinical presentation. Is currently on 5 L O2 nasal cannula. Sputum is showing gram-negative bacillus Bilateral lower lobe pneumonia, consider gram-negative pneumonia versus aspiration Troponin leak, secondary to above History of brain cancer, status post surgical excision, and chemoradiation. Previous history of tracheostomy and PEG tube placement. PEG tube for Enteral feeding, Jevity at 20 cc/hour Recent treatment for bronchitis by his medical oncologist. Generalized debility secondary to above Plan IVF NSS at a rate 75 IV Zosyn Awaiting final cultures sensitivities from the sputum Aggressive pulmonary toileting Continue DuoNeb nebulized treatments around the clock Heparin SC
--- NOTE | 2022-02-23 16:10 | P.PN ---
Subjective Progress Note Date: 02/23/22 This is a pleasant 21 years old male with no significant past medical history. Presents last night because ofright-sided chest pain, patient states that he has history of brain tumor and he is been done with his chemo and radiotherapy about 20 years ago. He is status post tracheostomy and PEG tube because of that. Patient states that he has a lot of secretion at baseline and history tracheostomy help him with getting an MRI. His oncologist is out of town in [place]. Last month his oncologist prescribed him antibiotic for bronchitis. This time he presents because of hard for him to breathe because it hurts whenever he takes deep breath on the right lower lung. He has chronic cough but also he is making some yellow phlegm for about a week. Patient has been constipated and did not have a ball for about 2 weeks also has been complaining of from mild bilateral abdominal pain about 5/10 Mindy no bowel movement or passing gas, but he was getting bolus of tube feeding through his PEG tube. He denies headache or dizziness, no weakness or numbness, no urinary complaints however repeat this morning about 600 mL Also he is generally weak. He denies smoking, alcohol or illicit drugs On admission his been febrile however he was tachycardic with heart rate 122 135. 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 Visually his blood pressure systolic is 140-160. On admission his CBC is unremarkable except for low hemoglobin at 12.8. INR is 1.3. Sodium 133, creatinine normal 0.7. Liver enzymes not elevated. Gabriela is elevated 0.16, 0.2, 0.19. ProBNP is 1800. Coronavirus not detected. EKG showing sinus tachycardia with a rate of 138, QTC 334. No significant ST-T changes. Chest x-ray showing perihilar and basilar infiltrates presents with mild interval progression suggested by radiologist. When I reviewed the chest x-ray looks like patient has more right lower lobe infiltrate On admission he was started on ceftriaxone and Zithromax as well as heparin drip and aspirin. Versed 500 bolus and continued on normal saline at 1:30 milliliters per hour for about 1 L. Cardiology and pulmonary services were consulted 02/23/2022 Patient evaluated today sitting up in bed. He feels week. Continues to report increased secretions. Sputum culture is currently showing gram negative bacillus. prelim blood cultures are negative. He is currently maintained on IV zosyn and is also being hydrated with IV normal saline. Echocardiogram is currently pending. Pulmonary, cardiology are following patient closely. Patient also states no BM for he thinks about 2 weeks, tube feeds are infusing through PEG tube at 20 mls per hour with goal of 85 mls per hour with jevity 1.5. Nursing reports no residuals with tube feed, he does have hypoactive bowel sounds. KUB done on admission shows non obstructive bowel gas pattern. Patient is on narcotics for pain management which can be constipating. Will add bowel regimine. He continues on updrafts. procalcitonin level 0.51. Review of Systems Constitutional: Reports fatigue. denied any fever. Cardio vascular: denied any chest pain, palpitations Gastrointestinal: denied any nausea, vomiting, diarrhea. No BM for 2 weeks. Pulmonary: Denied any shortness of breath. Reports cough, increased secretions. Neurologic denied any new focal deficits All inpatient medications were reviewed and appropriate changes in these medications as dictated in the interval history and assessment and plan. Physical examination GENERAL: The patient is alert and oriented x3, not in any acute distress. Well developed, well nourished. HEENT: Pupils are round and equally reacting to light. EOMI. No scleral icterus. No conjunctival pallor. Normocephalic, atraumatic. No pharyngeal erythema. No thyromegaly. Status post tracheostomy CARDIOVASCULAR: S1 and S2 present. No murmurs, rubs, or gallops. PULMONARY: Coarse rhonchi throughout. Trach in place. ABDOMEN: Soft, nontender, LLQ distention, Hypoactive bowel sounds. No palpable organomegaly. Status post PEG tube MUSCULOSKELETAL: No joint swelling or deformity. EXTREMITIES: No cyanosis, clubbing, or pedal edema. NEUROLOGICAL: Gross neurological examination did not reveal any focal deficits. SKIN: No rashes. No petechiae Assessment and Plan Assessment Acute hypoxic respiratory failure secondary to bilateral lower lobe pneumonia, more in the right lower lung. Sputum culture showing gram negative bacillus. Rule out aspiration. Sepsis with hypotension, tachycardia and tachypnea Troponin leak secondary to above, echocardiogram is pending History of brain tumor, finish his chemoradiotherapy. Follow-up with oncologist as an outpatient History of dysphagia status post PEG tube, also he is status post tracheostomy GI prophylaxis IV protonix DVT Prophylaxis Subcu heparin Plan Continue on current antibiotics with pulmonary following closely Pending finalized sputum culture with microsensitivities Continue IV fluids at 75 mls per hour Bowel regmine Continue duonebs and oxygen support PT/OT has been consulted The impression and plan of care has been dictated by Leti Shahid, Nurse Practitioner as directed. Dr. Evan MD I have performed a history and physical examination and medical decision making of this patient, discussed the same with the dictator, and agree with the dictators assessment and plan as written, documented as a scribe. Based on total visit time, I have performed more than 50% of this visit. Objective - Vital Signs Vital signs: Vital Signs Temp 98.9 F 02/23/22 08:47 Pulse 116 H 02/23/22 08:47 Resp 20 02/23/22 08:47 BP 92/53 02/23/22 08:47 Pulse Ox 97 02/23/22 08:47 FiO2 28 02/22/22 11:24 Intake & Output 02/22/22 02/23/22 02/23/22 18:59 06:59 18:59 Intake Total 400 Output Total 600 600 350 Balance -200 -600 -350 Intake: Oral 400 Output: Urine 600 600 350 - Labs CBC & Chem 7: 02/21/22 21:29 02/23/22 10:07 Labs: Abnormal Lab Results - Last 24 Hours (Table) 02/22/22 02/23/22 Range/Units 06:30 06:01 POC Glucose (mg/dL) 120 H (70-110) mg/dL HDL Cholesterol 14.80 L (40.00-60.00) mg/dL Microbiology - Last 24 Hours (Table) 02/22/22 10:20 Gram Stain - Preliminary Sputum Sputum Culture - Preliminary 02/21/22 22:00 Blood Culture - Preliminary Blood No Growth after 24 hours 02/21/22 22:15 Blood Culture - Preliminary Blood No Growth after 24 hours Assessment and Plan Time with Patient: Less than 30
[2022-02-23] MEDS ORDERED: LACTULOSE 20 GM/30 ML CUP PO ONE (16:30)
[2022-02-23 18:25] LABS: Glucose,Whole Blood 107 mg/dL (70-110)
[2022-02-23] MEDS: DOCUSATE ORAL SOLN 100 MG/10 ML CUP PO SCH (21:17)
[2022-02-24 00:05] LABS: Glucose,Whole Blood 126 mg/dL (70-110)
[2022-02-24] MEDS: HYDROmorphone 1 MG/ML 1 ML SYRINGE IVP PRN ×5 (03:34→21:57)
[2022-02-24 05:59] LABS: Glucose,Whole Blood 123 mg/dL (70-110)
--- NOTE | 2022-02-24 07:05 | XR ---
EXAMINATION TYPE: XR chest 1V portable DATE OF EXAM: 02/24/2022 COMPARISON: 02/22/2022 HISTORY: Cough TECHNIQUE: Single frontal view of the chest is obtained. FINDINGS: Bilateral lower lobe infiltrate and small effusion stable. Tracheostomy tube stable. No pn eumothorax. Heart size stable. Osseous structures IMPRESSION: Bilateral lower lobe pneumonia and small effusion stable
--- NOTE | 2022-02-24 08:04 | CA ---
Transthoracic Echo Report Name: Gian Davis Age: 21 Gender: M : 2000 Exam Date: 02/23/2022 10:20 Exam Location: [facility] Ht (in): 71 Wt (lb): 130 Ordering Physician: Suzanne Carter Attending/Referring Phys: [id number], Raul Fruit Harvester Machine Operator Rubi Yip RDCS Procedure CPT: Indications: LV function Cardiac Hx: Technical Quality: Good Contrast 1: Total Dose (mL): Contrast 2: Total Dose (mL): MEASUREMENTS (Male / Female) Normal Values 2D ECHO LV Diastolic Diameter PLAX 3.7 cm 4.2 - 5.9 / 3.9 - 5.3 cm LV Systolic Diameter PLAX 2.9 cm IVS Diastolic Thickness 1.0 cm 0.6 - 1.0 / 0.6 - 0.9 cm LVPW Diastolic Thickness 1.0 cm 0.6 - 1.0 / 0.6 - 0.9 cm LV Relative Wall Thickness 0.5 RV Internal Dim ED PLAX 4.6 cm M-MODE Aortic Root Diameter MM 2.8 cm LA Systolic Diameter MM 2.3 cm LA Ao Ratio MM 0.8 AV Cusp Separation MM 2.0 cm DOPPLER AV Peak Velocity 101.7 cm/s AV Peak Gradient 4.1 mmHg MV Area PHT 5.9 cm??? MR Peak Velocity 94.0 cm/s MR Peak Gradient 3.5 mmHg Mitral E Point Velocity 93.4 cm/s Mitral A Point Velocity 89.6 cm/s Mitral E to A Ratio 1.0 MV Deceleration Time 128.9 ms MV E' Velocity 7.7 cm/s Mitral E to MV E' Ratio 12.1 TR Peak Velocity 161.8 cm/s TR Peak Gradient 10.5 mmHg Right Ventricular Systolic Press 14.5 mmHg PV Peak Velocity 99.1 cm/s PV Peak Gradient 3.9 mmHg PI Peak Gradient 10.4 mmHg FINDINGS Left Ventricle Left ventricular ejection fraction is estimated at 55 %. Left ventricular cavity size normal. Left ventricular wall thickness normal. Right Ventricle Severe RV enlargement. Right ventricular systolic pressure within normal limits. Septal flattening Right Atrium Normal right atrial size. Left Atrium The left atrium is normal in size. Mitral Valve Structurally normal mitral valve without significant stenosis or prolapse. There is trace mitral regurgitation. Aortic Valve Structurally normal aortic valve without significant sclerosis or stenosis. There is no aortic regurgitation. Tricuspid Valve Structurally normal tricuspid valve without significant stenosis. Pulmonary artery systolic pressure is normal. Trace tricuspid regurgitation. Pulmonic Valve Structurally normal pulmonic valve without significant stenosis. There is no pulmonic regurgitation. Pericardium Small pericardial effusion. Aorta Normal aortic root dimension. CONCLUSIONS Normal left ventricular ejection fraction 55% Severe right ventricular enlargement approximately 1.6 x diameter of the left ventricle. Mildly decreased right ventricular function. No significant pulmonary hypertension and no significant shunting noted however consider right heart catheterization, BETHANIE or cardiac MRI to further workup right ventricular dilation if clinically warranted. Trace mitral regurgitation Trace tricuspid regurgitation Small pericardial effusion Previewed by: Dr. Christofer Hampton DO (Electronically Signed) Final Date: 24 February 2022 08:03
[2022-02-24 08:25] LABS: Basophils % (A) 0 %; Eosinophils # (A) 0.1 k/uL (0-0.7); Eosinophils % (A) 1 %; HCT 37.6 % (39.0-53.0); HGB 11.3 gm/dL (13.0-17.5); Hypochromasia Moderate; Lymphocytes # (A) 0.7 k/uL (1.0-4.8); Lymphocytes % (A) 11 %; MCH 28.7 pg (25.0-35.0); MCHC 30.1 g/dL (31.0-37.0); MCV 95.4 fL (80.0-100.0); Mean Platelet Volume 7.3; Monocytes # (A) 0.3 k/uL (0-1.0); Monocytes % (A) 4 %; Neutrophils # (A) 5.5 k/uL (1.3-7.7); Neutrophils % (A) 83 %; Platelet Count 354 k/uL (150-450); RBC 3.94 m/uL (4.30-5.90); RDW 13.9 % (11.5-15.5); WBC 6.7 k/uL (3.8-10.6)
[2022-02-24 08:41] LABS: African American GFR (CKD) >90 (>60 ml/min/1.73 sqM); Anion Gap 4 mmol/L; Blood Urea Nitrogen 3 mg/dL (9-20); Calcium 7.9 mg/dL (8.4-10.2); Carbon Dioxide 32 mmol/L (22-30); Chloride 103 mmol/L (98-107); Glucose 116 mg/dL (74-99); Non-African American GFR(CKD) >90 (>60 ml/min/1.73 sqM); Potassium 3.9 mmol/L (3.5-5.1); Sodium 139 mmol/L (137-145)
[2022-02-24] MEDS: PIPERACILLIN-TAZOBACTAM 3.375 GM in SODIUM CHLORIDE 0.9% 100 ML IVPB SCH ×3 (09:31→23:57)
[2022-02-24] MEDS: HEPARIN SODIUM,PORCINE/PF 5,000 UNIT/0.5 ML SYRINGE SQ SCH ×2 (10:43→20:11)
[2022-02-24] MEDS: PANTOPRAZOLE 40 MG/10 ML VIAL IVP SCH (10:43)
[2022-02-24] MEDS: DOCUSATE ORAL SOLN 100 MG/10 ML CUP PO SCH (10:43)
[2022-02-24 12:06] LABS: Glucose,Whole Blood 117 mg/dL (70-110)
--- NOTE | 2022-02-24 13:25 | P.PN ---
Subjective Progress Note Date: 02/24/22 02/24/2022, the patient is doing well. The sputum as mentioned showed a gram- negative bacillus and the final cultures and sensitivities are still pending. Meanwhile the patient continues to be on IV Zosyn. He still has a congested cough. He is doing adequate pulmonate toileting. Is able to cough up secretions. Repeat chest x-ray was done and showed stable bilateral pulmonary infiltrates with small effusions. Essentially the findings are unchanged compared to yesterday. Meanwhile, the patient has a white cell count of 6.7 with a hemoglobin 11.3 and a platelet count of 354. Electrodes are all within normal limits. As mentioned, the patient is a Shiley tracheostomy tube in place. He is on 4 L nasal cannula to maintain a saturation above around 94%. He is receiving enteral feeding for nutritional support. The patient on Jevity which is running at the rate of 20 mL an hour. Objective - Vital Signs Vital signs: Vital Signs Temp 97.8 F 02/24/22 12:16 Pulse 110 H 02/24/22 12:16 Resp 18 02/24/22 12:16 BP 112/67 02/24/22 12:16 Pulse Ox 94 L 02/24/22 12:16 FiO2 28 02/22/22 11:24 Intake & Output 02/23/22 02/24/22 02/24/22 18:59 06:59 18:59 Output Total 1575 525 Balance -1575 -525 Weight 58.967 kg 58.967 kg Output: Urine 1575 525 - Exam No acute distress, oriented 3. Patient is, comfortable and the patient is using 5 L of oxygen by nasal cannula Head exam was generally normal. There was no scleral icterus or corneal arcus. Mucous membranes were moist. HEENT examination is grossly unremarkable. Neck supple. Full range of motion. No adenopathy thyromegaly or neck vein distention. Midline tracheostomy noted. The patient is #6 [address] tracheostomy tube in place. Breathing is nonlabored this point in time. Cardiovascular examination reveals regular rhythm rate. S1-S2 normal. No S3 or S4. No discernible murmur noted. Heart sounds are distant. Lungs reveal bilateral scattered moderate rhonchi. The patient has crackles in lung bases bilaterally patient scattered rhonchi Abdomen soft, with bowel sounds. No masses or tenderness. PEG tube noted. The patient has a PEG tube in place and exit site is dry clean and intact Extremities are intact. No cyanosis clubbing or edema. Skin is without rash or lesion. Neurologic examination is brief but nonfocal. - Labs CBC & Chem 7: 02/24/22 07:40 02/24/22 07:40 Labs: Abnormal Lab Results - Last 24 Hours (Table) 02/23/22 02/24/22 02/24/22 Range/Units 10:07 00:04 05:57 RBC (4.30-5.90) m/uL Hgb (13.0-17.5) gm/dL Hct (39.0-53.0) % MCHC (31.0-37.0) g/dL Lymphocytes # (1.0-4.8) k/uL Carbon Dioxide (22-30) mmol/L BUN (9-20) mg/dL Creatinine (0.66-1.25) mg/dL Glucose (74-99) mg/dL POC Glucose (mg/dL) 126 H 123 H (70-110) mg/dL Calcium (8.4-10.2) mg/dL Procalcitonin 0.51 H (0.02-0.09) ng/mL 02/24/22 02/24/22 02/24/22 Range/Units 07:40 07:40 12:04 RBC 3.94 L (4.30-5.90) m/uL Hgb 11.3 L (13.0-17.5) gm/dL Hct 37.6 L (39.0-53.0) % MCHC 30.1 L (31.0-37.0) g/dL Lymphocytes # 0.7 L (1.0-4.8) k/uL Carbon Dioxide 32 H (22-30) mmol/L BUN 3 L (9-20) mg/dL Creatinine 0.54 L (0.66-1.25) mg/dL Glucose 116 H (74-99) mg/dL POC Glucose (mg/dL) 117 H (70-110) mg/dL Calcium 7.9 L (8.4-10.2) mg/dL Procalcitonin (0.02-0.09) ng/mL Microbiology - Last 24 Hours (Table) 02/21/22 22:15 Blood Culture - Preliminary Blood No Growth after 48 hours 02/21/22 22:00 Blood Culture - Preliminary Blood No Growth after 48 hours 02/22/22 10:20 Gram Stain - Preliminary Sputum Sputum Culture - Preliminary Gram Neg Bacilli Assessment and Plan Plan: Acute hypoxemic respiratory failure secondary to bilateral pneumonia, rule out aspiration and he is on IV Zosyn, on 4 liters 02 NC, highly considered an underl vineet aspiration pneumonia based on his condition clinical presentation. Is currently on 4 L O2 nasal cannula. Sputum is showing gram-negative bacillus Bilateral lower lobe pneumonia, consider gram-negative pneumonia versus aspiration, awaiting final cultures and sensitivities, the Gram stain is showing gram every bacillus Troponin leak, secondary to above History of brain cancer, status post surgical excision, and chemoradiation. Previous history of tracheostomy and PEG tube placement. PEG tube for Enteral feeding, Jevity at 20 cc/hour Recent treatment for bronchitis by his medical oncologist. Generalized debility secondary to above Plan IVF NSS at a rate 75 IV Zosyn Awaiting final cultures sensitivities from the sputum, for now that gram- negative bacillus growing in the sputum culture. Aggressive pulmonary toileting Clinically improving Continue DuoNeb nebulized treatments around the clock Heparin SC Enteral feeding for nutritional support
[2022-02-24] MEDS ORDERED: DOCUSATE ORAL SOLN 100 MG/10 ML CUP PO PRN (14:44)
--- NOTE | 2022-02-24 14:54 | P.PN ---
Subjective Progress Note Date: 02/24/22 This is a pleasant 21 years old male with no significant past medical history. Presents last night because ofright-sided chest pain, patient states that he has history of brain tumor and he is been done with his chemo and radiotherapy about 20 years ago. He is status post tracheostomy and PEG tube because of that. Patient states that he has a lot of secretion at baseline and history tracheostomy help him with getting an MRI. His oncologist is out of town in [place]. Last month his oncologist prescribed him antibiotic for bronchitis. This time he presents because of hard for him to breathe because it hurts whenever he takes deep breath on the right lower lung. He has chronic cough but also he is making some yellow phlegm for about a week. Patient has been constipated and did not have a ball for about 2 weeks also has been complaining of from mild bilateral abdominal pain about 5/10 Mindy no bowel movement or passing gas, but he was getting bolus of tube feeding through his PEG tube. He denies headache or dizziness, no weakness or numbness, no urinary complaints however repeat this morning about 600 mL Also he is generally weak. He denies smoking, alcohol or illicit drugs On admission his been febrile however he was tachycardic with heart rate 122 135. 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 Visually his blood pressure systolic is 140-160. On admission his CBC is unremarkable except for low hemoglobin at 12.8. INR is 1.3. Sodium 133, creatinine normal 0.7. Liver enzymes not elevated. Gabriela is elevated 0.16, 0.2, 0.19. ProBNP is 1800. Coronavirus not detected. EKG showing sinus tachycardia with a rate of 138, QTC 334. No significant ST-T changes. Chest x-ray showing perihilar and basilar infiltrates presents with mild interval progression suggested by radiologist. When I reviewed the chest x-ray looks like patient has more right lower lobe infiltrate On admission he was started on ceftriaxone and Zithromax as well as heparin drip and aspirin. Versed 500 bolus and continued on normal saline at 1:30 milliliters per hour for about 1 L. Cardiology and pulmonary services were consulted 02/23/2022 Patient evaluated today sitting up in bed. He feels week. Continues to report increased secretions. Sputum culture is currently showing gram negative bacillus. prelim blood cultures are negative. He is currently maintained on IV zosyn and is also being hydrated with IV normal saline. Echocardiogram is currently pending. Pulmonary, cardiology are following patient closely. Patient also states no BM for he thinks about 2 weeks, tube feeds are infusing through PEG tube at 20 mls per hour with goal of 85 mls per hour with jevity 1.5. Nursing reports no residuals with tube feed, he does have hypoactive bowel sounds. KUB done on admission shows non obstructive bowel gas pattern. Patient is on narcotics for pain management which can be constipating. Will add bowel regimine. He continues on updrafts. procalcitonin level 0.51. 02/24/2022 Follow up chest xray showing bilateral lower lobe pneumonia and small effusion with is stable from yesterday. Patient continues on IV zosyn. Sputum is showing pseudomonas and streptococcus pneumoniae. Patient is being followed closely by pulmonary services. Patient had 2 loose BMs throughout the night. Continues with increased secretions, fatigue. Echocardiogram showing EF 55%, Severe right ventricular enlargement, trace mitral regurgitation, trace tricuspid regurgitation, small pericardial effusion. Consider BETHANIE or cardiac MRI for further eval of right ventricular enlargement. Cardiology is following patient closely. White count today 6.7, hgb 11.3, sodium 139, potassium 3.9, BUN 3, creatinine 0.54. blood glucose in the 120s. Patient remains afebrile, heart rate is in the 120s this morning. Blood pressure 119/79, 92% pulse oximetry. He is on 4 to 5 L nasal cannula. Review of Systems Constitutional: Reports fatigue. denied any fever. Cardio vascular: denied any chest pain, palpitations Gastrointestinal: denied any nausea, vomiting, diarrhea. Pulmonary: Denied any shortness of breath. Reports cough, increased secretions. Neurologic denied any new focal deficits All inpatient medications were reviewed and appropriate changes in these medications as dictated in the interval history and assessment and plan. Physical examination GENERAL: The patient is alert and oriented x3, not in any acute distress. Well developed, well nourished. HEENT: Pupils are round and equally reacting to light. EOMI. No scleral icterus. No conjunctival pallor. Normocephalic, atraumatic. No pharyngeal erythema. No thyromegaly. Status post tracheostomy CARDIOVASCULAR: S1 and S2 present. No murmurs, rubs, or gallops. PULMONARY: Coarse rhonchi throughout. Trach in place. ABDOMEN: Soft, nontender, LLQ distention, Hypoactive bowel sounds. No palpable organomegaly. Status post PEG tube MUSCULOSKELETAL: No joint swelling or deformity. EXTREMITIES: No cyanosis, clubbing, or pedal edema. NEUROLOGICAL: Gross neurological examination did not reveal any focal deficits. SKIN: No rashes. No petechiae Assessment and Plan Assessment Acute hypoxic respiratory failure secondary to bilateral lower lobe pneumonia, more in the right lower lung. Sputum culture showing streptococcus pneumoniae and pseudomonas. Rule out aspiration. Sepsis with hypotension, tachycardia and tachypnea Troponin leak secondary to above also evidence of right ventricular enlargement on echocardiogram History of brain tumor, with resection and chemoradiotherapy. Follow-up with oncologist as an outpatient History of dysphagia status post PEG tube, also he is status post tracheostomy GI prophylaxis IV protonix DVT Prophylaxis Subcu heparin Plan Continue on current antibiotics with pulmonary following closely Pending finalized sputum culture with microsensitivities 2 D echocardiogram completed showing severe right ventricular enlargement Pulmonary, Cardiology following patient closely Continue IV fluids at 75 mls per hour Bowel regmine Continue duonebs and oxygen support PT/OT has been consulted The impression and plan of care has been dictated by Leti Shahid, Nurse Practitioner as directed. Dr. Evan MD I have performed a history and physical examination and medical decision making of this patient, discussed the same with the dictator, and agree with the dictators assessment and plan as written, documented as a scribe. Based on total visit time, I have performed more than 50% of this visit. Objective - Vital Signs Vital signs: Vital Signs Temp 98.8 F 02/24/22 08:00 Pulse 122 H 02/24/22 08:00 Resp 19 02/24/22 08:00 BP 119/79 02/24/22 08:00 Pulse Ox 92 L 02/24/22 08:00 FiO2 28 02/22/22 11:24 Intake & Output 02/23/22 02/24/22 02/24/22 18:59 06:59 18:59 Output Total 1575 525 Balance -1575 -525 Weight 58.967 kg Output: Urine 1575 525 - Labs CBC & Chem 7: 02/24/22 07:40 02/24/22 07:40 Labs: Abnormal Lab Results - Last 24 Hours (Table) 02/23/22 02/23/22 02/24/22 Range/Units 10:07 10:07 00:04 RBC (4.30-5.90) m/uL Hgb (13.0-17.5) gm/dL Hct (39.0-53.0) % MCHC (31.0-37.0) g/dL Lymphocytes # (1.0-4.8) k/uL Carbon Dioxide 34 H (22-30) mmol/L BUN 6 L (9-20) mg/dL Creatinine 0.61 L (0.66-1.25) mg/dL Glucose 110 H (74-99) mg/dL POC Glucose (mg/dL) 126 H (70-110) mg/dL Calcium 8.0 L (8.4-10.2) mg/dL Procalcitonin 0.51 H (0.02-0.09) ng/mL 02/24/22 02/24/22 02/24/22 Range/Units 05:57 07:40 07:40 RBC 3.94 L (4.30-5.90) m/uL Hgb 11.3 L (13.0-17.5) gm/dL Hct 37.6 L (39.0-53.0) % MCHC 30.1 L (31.0-37.0) g/dL Lymphocytes # 0.7 L (1.0-4.8) k/uL Carbon Dioxide 32 H (22-30) mmol/L BUN 3 L (9-20) mg/dL Creatinine 0.54 L (0.66-1.25) mg/dL Glucose 116 H (74-99) mg/dL POC Glucose (mg/dL) 123 H (70-110) mg/dL Calcium 7.9 L (8.4-10.2) mg/dL Procalcitonin (0.02-0.09) ng/mL Microbiology - Last 24 Hours (Table) 02/21/22 22:15 Blood Culture - Preliminary Blood No Growth after 48 hours 02/21/22 22:00 Blood Culture - Preliminary Blood No Growth after 48 hours 02/22/22 10:20 Gram Stain - Preliminary Sputum Sputum Culture - Preliminary Gram Neg Bacilli Assessment and Plan Time with Patient: Less than 30
[2022-02-24] MEDS: SODIUM CHLORIDE 0.9% 1,000 ML IV SCH (15:10)
[2022-02-24 18:43] LABS: Glucose,Whole Blood 99 mg/dL (70-110)
--- NOTE | 2022-02-24 18:48 | CDI ---
Documentation Clarification Form Date: 02/24/2022 06:28:12 PM From: Frances Ireland RN CCDS Admit Date: 02/21/2022 10:51:00 PM Patient Name: Gian Davis Visit Number: [id number] Discharge Date: ATTENTION: The Clinical Documentation Specialists (CDI) and [facility] Coding Staff appreciate your assistance in clarifying documentation. Please respond to the clarification below the line at the bottom and electronically sign. The CDI & [facility] Coding staff will review the response and follow-up if needed. Please note: Queries are made part of the Legal Health Record. If you have any questions, please contact the author of this message via ITS. Dr. Wyatt Gordon Sepsis is documented H&P, 02/22, but is not noted in subsequent documentation. Clarification is requested. History/Risk Factors: 21-year-old male presents to the ED with right sided chest pain with pain on right lower lung when breathing. Yellow phlegm with cough for a week. Recent antibiotic for bronchitis. Medical History: Tracheostomy, Brain Cancer and Peg tube. 02/22, H&P. Clinical Indicators: Admission VSS 02/21 20:02: B/P 133/87; HR 121; Temp 98.8; RR 24 SpO2 92% room air VSS 02/22 04:00 B/P 95/56; HR 134; Temp 97.6 F Axillary; RR 20; SpO2 96% Nasal cannula 4L trach. LABS 02/21: Wbc 8; Neutrophils 6.4; NA 133; Troponin 0.166; 0.199; BNP 1800. CXR 02/21: Bilateral pleural effusions and pulmonary interstitial and airspace infiltrates. 02/21, ED Note: Well, developed asthenic appearing male awake and alert orientated x 3 Treatment: 02/21 21:16 0.9NS 500cc bolus x 1 followed by 130cc hr d/c 02/22; 02/21 Azithromycin 500mg IVPB x 1; Ceftriaxone 2gm IVPB x 1; 02/22 09:36 0.9NS 1L bolus x 1; 02/22 Zosyn IVPB Q8 Please clarify if the Sepsis is: [ ] Sepsis confirmed, remains under treatment [ ] Sepsis confirmed, resolved [ ] Sepsis ruled out [ ] Other condition, please specify [ ] Unable to determine Documented By Dr Gordon 02/24 Medicine progress note Sepsis with hypotension, tachycardia and tachypnea. (Template Last Revised: October 2020) ALEXIS
--- NOTE | 2022-02-24 19:08 | CDI ---
Documentation Clarification Form Date: 02/24/2022 06:50:48 PM From: Frances Ireland RN CCDS Admit Date: 02/21/2022 10:51:00 PM Patient Name: Gian Davis Visit Number: [id number] Discharge Date: ATTENTION: The Clinical Documentation Specialists (CDI) and [facility] Coding Staff appreciate your assistance in clarifying documentation. Please respond to the clarification below the line at the bottom and electronically sign. The CDI & [facility] Coding staff will review the response and follow-up if needed. Please note: Queries are made part of the Legal Health Record. If you have any questions, please contact the author of this message via ITS. Dr. Gordon The patient has Enteral Nutrition with peg tube. Based on this information and the findings below, is there an additional diagnosis that is clinically appropriate for this patient? History/Risk Factors: 21-year-old male presents to the ED with right sided chest pain with pain on right lower lung when breathing. Yellow phlegm with cough for a week. Recent antibiotic for bronchitis. Medical History: Tracheostomy, Brain Cancer and Peg tube. 02/22, H&P. Clinical Indicators: RD Consult Assessment: Current BMI: 18.1kg; Hgt 5ft 11in; Wgt 58.967kg Calculated ideal body weight 78.018kg, % [place] body weight 76% Underweight. Dx: Bilateral Pneumonia, dehydration, PMH: Brain tumor, Chemotherapy, Radiation, Tracheostomy and PEG Tube (EN), Everyday Marijuana smoker. Nutritional Intake: Poor, NPO EN started at 20ml / hr. Nutritional concerns underfeeding, Treatment: Dietary Consult: see above PPN/TPN: Jevity1.5 Lab monitoring: Chemistry. Residual on feedings. Monitor tube feedings Is there an additional diagnosis that is clinically appropriate for this patient? [ ] Moderate Protein-Calorie Malnutrition [ ] Severe Protein-Calorie Malnutrition [ x ] Other condition, please specify __not mal nurshed [ ] Unable to Determine (Template Last Revised: October 2020) MTDD
[2022-02-24 23:57] LABS: Glucose,Whole Blood 93 mg/dL (70-110)
--- NOTE | 2022-02-25 00:50 | CT ---
EXAMINATION TYPE: CT angio chest DATE OF EXAM: 02/25/2022 COMPARISON: None HISTORY: pe Chest pain CT DLP: 252.9 mGycm Automated exposure control for dose reduction was used. CONTRAST: Performed with IV Contrast, patient injected with 100 mL of Isovue 370. There are Three-D postprocessed images. There is moderate bilateral pleural effusions. Heart is slightly enlarged. There is extensive infiltr ate in the mid and lower lung vela. There is some atelectasis at the lung bases. There is endotrach eal tube. There are some pretracheal lymph nodes that measure up to almost 2 cm. There is some nodula r appearing bilateral upper lobe pulmonary infiltrates. Thoracic aorta is intact. No aneurysm or dissection. No evidence of filling defect in the pulmonary arteries. The thoracic spine is intact. No compression fracture. The sternum is intact. IMPRESSION: No evidence of pulmonary embolism. Cardiomegaly with pleural effusions and extensive pulmonary infiltrates. There is some mediastinal ad enopathy that is likely reactive. Appearance of the chest could relate to significant RDS. Congestive heart failure also possible.
[2022-02-25] MEDS: SODIUM CHLORIDE 0.9% 1,000 ML IV SCH ×2 (01:22→11:39)
[2022-02-25] MEDS: HYDROmorphone 1 MG/ML 1 ML SYRINGE IVP PRN ×4 (02:01→20:42)
[2022-02-25 06:42] LABS: Glucose,Whole Blood 105 mg/dL (70-110)
[2022-02-25 07:57] LABS: Basophils % (A) 0 %; Eosinophils # (A) 0.1 k/uL (0-0.7); Eosinophils % (A) 1 %; HCT 37.7 % (39.0-53.0); HGB 11.7 gm/dL (13.0-17.5); Hypochromasia Moderate; Lymphocytes # (A) 0.6 k/uL (1.0-4.8); Lymphocytes % (A) 12 %; MCH 29.8 pg (25.0-35.0); MCHC 31.1 g/dL (31.0-37.0); MCV 95.8 fL (80.0-100.0); Mean Platelet Volume 7.2; Monocytes # (A) 0.3 k/uL (0-1.0); Monocytes % (A) 5 %; Neutrophils # (A) 4.5 k/uL (1.3-7.7); Neutrophils % (A) 81 %; Platelet Count 339 k/uL (150-450); RBC 3.94 m/uL (4.30-5.90); RDW 13.9 % (11.5-15.5); WBC 5.5 k/uL (3.8-10.6)
[2022-02-25 08:19] LABS: African American GFR (CKD) >90 (>60 ml/min/1.73 sqM); Anion Gap 2 mmol/L; Blood Urea Nitrogen 4 mg/dL (9-20); Calcium 8.2 mg/dL (8.4-10.2); Carbon Dioxide 36 mmol/L (22-30); Chloride 100 mmol/L (98-107); Glucose 139 mg/dL (74-99); Non-African American GFR(CKD) >90 (>60 ml/min/1.73 sqM); Sodium 138 mmol/L (137-145)
[2022-02-25] MEDS: HEPARIN SODIUM,PORCINE/PF 5,000 UNIT/0.5 ML SYRINGE SQ SCH ×2 (08:19→20:44)
[2022-02-25] MEDS: PIPERACILLIN-TAZOBACTAM 3.375 GM in SODIUM CHLORIDE 0.9% 100 ML IVPB SCH ×3 (08:19→23:11)
[2022-02-25] MEDS: PANTOPRAZOLE 40 MG/10 ML VIAL IVP SCH (08:19)
[2022-02-25 11:51] LABS: Glucose,Whole Blood 96 mg/dL (70-110)
--- NOTE | 2022-02-25 14:29 | P.PN ---
Subjective Progress Note Date: 02/25/22 02/24/2022, the patient is doing well. The sputum as mentioned showed a gram- negative bacillus and the final cultures and sensitivities are still pending. Meanwhile the patient continues to be on IV Zosyn. He still has a congested cough. He is doing adequate pulmonate toileting. Is able to cough up secretions. Repeat chest x-ray was done and showed stable bilateral pulmonary infiltrates with small effusions. Essentially the findings are unchanged compared to yesterday. Meanwhile, the patient has a white cell count of 6.7 with a hemoglobin 11.3 and a platelet count of 354. Electrodes are all within normal limits. As mentioned, the patient is a Shiley tracheostomy tube in place. He is on 4 L nasal cannula to maintain a saturation above around 94%. He is receiving enteral feeding for nutritional support. The patient on eBIZ.mobility which is running at the rate of 20 mL an hour. 02/25/2022, the patient is stable. Nevertheless, his cough and not copious amount of foamy, white, rest or secretions is easily able to cough it out through his tracheostomy tube. This is in copious amounts. Cultures within were obtained yesterday showed a polymicrobial growth and this included pseudomo enoch aeruginosa that was sensitive to Zosyn and the patient also had streptococcal pneumonia which was sensitive to various antibiotics offered. On today's evaluation, the patient is doing well. No symptoms of any significant respiratory distress. He remains on eBIZ.mobility for enteral feeding and nutritional support. No chest pain. No hemoptysis or pleurisy. Shiley tracheostomy tube remains in place. The patient's white cell count of 5.5 with a hemoglobin of 11.7. Electrodes are normal. Calcium level is at 3.2. Sodium level is at 138. Pulse ox on room air oxygen is 94%. He is afebrile. No significant tachycardia otherwise for now. No nausea. No vomiting. No emesis. No aspiration. Objective - Vital Signs Vital signs: Vital Signs Temp 98.3 F 02/25/22 12:00 Pulse 95 02/25/22 12:00 Resp 16 02/25/22 12:00 BP 133/101 02/25/22 12:00 Pulse Ox 94 L 02/25/22 12:00 FiO2 28 02/22/22 11:24 Intake & Output 02/24/22 02/25/22 02/25/22 18:59 06:59 18:59 Intake Total 0 Output Total 350 550 850 Balance -350 -550 -850 Weight 58.967 kg 66.9 kg Intake: Oral 0 Output: Urine 350 550 850 Other: # Voids 1 - Exam No acute distress, oriented 3. Patient is, comfortable and the patient is oxygen at room air Head exam was generally normal. There was no scleral icterus or corneal arcus. Mucous membranes were moist. HEENT examination is grossly unremarkable. Neck supple. Full range of motion. No adenopathy thyromegaly or neck vein distention. Midline tracheostomy noted. The patient is #6 [address] tracheostomy tube in place. Breathing is nonlabored this point in time. Cardiovascular examination reveals regular rhythm rate. S1-S2 normal. No S3 or S4. No discernible murmur noted. Heart sounds are distant. Lungs reveal bilateral scattered moderate rhonchi. The patient has crackles in lung bases bilaterally patient scattered rhonchi Abdomen soft, with bowel sounds. No masses or tenderness. PEG tube noted. The patient has a PEG tube in place and exit site is dry clean and intact Extremities are intact. No cyanosis clubbing or edema. Skin is without rash or lesion. Neurologic examination is brief but nonfocal. - Labs CBC & Chem 7: 02/25/22 07:07 02/25/22 07:07 Labs: Abnormal Lab Results - Last 24 Hours (Table) 02/24/22 02/25/22 02/25/22 Range/Units 22:37 07:07 07:07 RBC 3.94 L (4.30-5.90) m/uL Hgb 11.7 L (13.0-17.5) gm/dL Hct 37.7 L (39.0-53.0) % Lymphocytes # 0.6 L (1.0-4.8) k/uL D-Dimer 5.83 H (<0.60) mg/L FEU Carbon Dioxide 36 H (22-30) mmol/L BUN 4 L (9-20) mg/dL Creatinine 0.58 L (0.66-1.25) mg/dL Glucose 139 H (74-99) mg/dL Calcium 8.2 L (8.4-10.2) mg/dL Microbiology - Last 24 Hours (Table) 02/22/22 10:20 Gram Stain - Final Sputum Sputum Culture - Final Pseudomonas aeruginosa Streptococcus pneumoniae 02/21/22 22:15 Blood Culture - Preliminary Blood No Growth after 72 hours 02/21/22 22:00 Blood Culture - Preliminary Blood No Growth after 72 hours Assessment and Plan Plan: Acute hypoxemic respiratory failure secondary to bilateral pneumonia, and the patient has grown a combination of pseudomonas aeruginosa and streptococcal pneumonia on his Gram stain and culture. Mother the patient is currently on IV Zosyn and this is considered to be an adequate antibiotic coverage based on the cultures and sensitivities. Consider aspiration. Consider hospital-acquired pneumonia. Clinically the patient is improving and the patient is able to come off the oxygen with pulse ox on room air is around 94%. Bilateral lower lobe pneumonia, with secondary hypoxic respiratory failure and shortness of breath, improved Troponin leak, secondary to above History of brain cancer, status post surgical excision, and chemoradiation. Previous history of tracheostomy and PEG tube placement. PEG tube for Enteral feeding, Jevity at 20 cc/hour Recent treatment for bronchitis by his medical oncologist. Generalized debility secondary to above Plan IVF NSS at a rate 75 and this will be reduced to KVO IV Zosyn, and this is an adequate antibiotic coverage based on the cultures and sensitivities Awaiting final cultures sensitivities from the sputum, for now that gram- negative bacillus growing in the sputum culture. Aggressive pulmonary toileting Clinically improving Continue DuoNeb nebulized treatments around the clock Heparin SC Enteral feeding for nutritional support We'll continue to follow. The patient is doing adequate pulmonate toileting. He is bringing up copious amount of rest or secretions and his ability to clear his airways and cough and the suction himself is adequate. We'll continue to follow.
--- NOTE | 2022-02-25 16:17 | P.GSCN ---
History of Present Illness Consult date: 02/25/22 History of present illness: CHIEF COMPLAINT: Cough and shortness of breath HISTORY OF PRESENT ILLNESS: This is a 21-year-old male with a history of brain tumor status post tracheostomy and PEG tube placement over a year ago at [facility]. Patient presented to the hospital shortness of breath and cough. He has been diagnosed with a pneumonia. He is on IV antibiotics. Followed by pulmonary service. Surgical service consulted for possible malfunctioning PEG tube. Patient had leaking around the PEG tube. Patient's PEG tube is functioning. They were able to pull bolus feedings this morning. He only had 60 mL residual. Patient denies any abdominal pain. He reports that he has had tube feeds drainage from around the PEG tube for the last 1 month. He denies any nausea or vomiting. He reports having bowel movements. Apparently when they tried to connect the tubing of the PEG tube to the tubing for the continuous feeds there was some difficulty. However patient is tolerating bolus feeds. PAST MEDICAL HISTORY: See list. PAST SURGICAL HISTORY: Brain tumor status post surgical excision and chemoradiation MEDICATIONS: See list. ALLERGIES: See list. SOCIAL HISTORY: No illicit drug use. REVIEW OF SYSTEMS: CONSTITUTIONAL: Denies fever or chills. HEENT: Denies blurred vision, vision changes, or eye pain. Denies hemoptysis CARDIOVASCULAR: Denies chest pain or pressure. RESPIRATORY: No shortness of breath. GASTROINTESTINAL: See HPI for pertinent findings HEMATOLOGIC: Denies bleeding disorders. GENITOURINARY: Denies any blood in urine or increased urinary frequency. SKIN: Denies pruitis. Denies rash. PHYSICAL EXAM: VITAL SIGNS: Reviewed GENERAL: Well-developed in no acute distress. HEENT: No sclera icterus. Extraocular movements grossly intact. Moist buccal mucosa. Head is atraumatic, normocephalic. No nasal drainage. ABDOMEN: Soft. Nondistended. Nontender. Minimal Tube feeding drainage noted around the PEG tube NEUROLOGIC: Alert and oriented. Cranial nerves II through XII grossly intact. LABORATORY DATA: WBC is 5.5 Hgb 11.7 platelets 339 Sodium 138 potassium 4.0 creatinine 0.58 IMAGING: ASSESSMENT: 1. Minimal leaking around PEG tube PLAN: -PEG tube is functioning. Okay to continue PEG tube feedings -Continue supportive care Thank you for this consultation Physician Shot Polisher And Inspector note has been reviewed by physician. Signing provider agrees with the documented findings, assessment, and plan of care. Past Medical History Past Medical History: No Reported History History of Any Multi-Drug Resistant Organisms: None Reported Past Surgical History: No Surgical Hx Reported Past Anesthesia/Blood Transfusion Reactions: No Reported Reaction Past Psychological History: ADD/ADHD Smoking Status: Current some day smoker Past Alcohol Use History: None Reported Past Drug Use History: None Reported, Marijuana Medications and Allergies Home Medications Medication Instructions Recorded Confirmed Type Glycopyrrolate 1 mg PEG/G-TUBE BID 02/22/22 02/22/22 History Methadone Solution 10mg/5ml 2.5 ml PEG/G-TUBE TID 02/22/22 02/22/22 History Allergies Allergy/AdvReac Type Severity Reaction Status Date / Time No Known Allergies Allergy Verified 02/22/22 12:31 Surgical - Exam Vital Signs Temp Pulse Resp BP Pulse Ox 98.8 F 121 H 24 133/87 92 L 02/21/22 20:02 02/21/22 20:02 02/21/22 20:02 02/21/22 20:02 02/21/22 20:02 Results - Labs 02/25/22 07:07 02/25/22 07:07 Abnormal Lab Results - Last 24 Hours (Table) 02/24/22 02/25/22 02/25/22 Range/Units 22:37 07:07 07:07 RBC 3.94 L (4.30-5.90) m/uL Hgb 11.7 L (13.0-17.5) gm/dL Hct 37.7 L (39.0-53.0) % Lymphocytes # 0.6 L (1.0-4.8) k/uL D-Dimer 5.83 H (<0.60) mg/L FEU Carbon Dioxide 36 H (22-30) mmol/L BUN 4 L (9-20) mg/dL Creatinine 0.58 L (0.66-1.25) mg/dL Glucose 139 H (74-99) mg/dL Calcium 8.2 L (8.4-10.2) mg/dL Microbiology - Last 24 Hours (Table) 02/22/22 10:20 Gram Stain - Final Sputum Sputum Culture - Final Pseudomonas aeruginosa Streptococcus pneumoniae 02/21/22 22:15 Blood Culture - Preliminary Blood No Growth after 72 hours 02/21/22 22:00 Blood Culture - Preliminary Blood No Growth after 72 hours Diabetes panel 02/25/22 Range/Units 07:07 Sodium 138 (137-145) mmol/L Potassium 4.0 (3.5-5.1) mmol/L Chloride 100 (98-107) mmol/L Carbon Dioxide 36 H (22-30) mmol/L BUN 4 L (9-20) mg/dL Creatinine 0.58 L (0.66-1.25) mg/dL Glucose 139 H (74-99) mg/dL Calcium 8.2 L (8.4-10.2) mg/dL Calcium panel 02/25/22 Range/Units 07:07 Calcium 8.2 L (8.4-10.2) mg/dL Pituitary panel 02/25/22 Range/Units 07:07 Sodium 138 (137-145) mmol/L Potassium 4.0 (3.5-5.1) mmol/L Chloride 100 (98-107) mmol/L Carbon Dioxide 36 H (22-30) mmol/L BUN 4 L (9-20) mg/dL Creatinine 0.58 L (0.66-1.25) mg/dL Glucose 139 H (74-99) mg/dL Calcium 8.2 L (8.4-10.2) mg/dL Adrenal panel 02/25/22 Range/Units 07:07 Sodium 138 (137-145) mmol/L Potassium 4.0 (3.5-5.1) mmol/L Chloride 100 (98-107) mmol/L Carbon Dioxide 36 H (22-30) mmol/L BUN 4 L (9-20) mg/dL Creatinine 0.58 L (0.66-1.25) mg/dL Glucose 139 H (74-99) mg/dL Calcium 8.2 L (8.4-10.2) mg/dL
[2022-02-25 17:57] LABS: Glucose,Whole Blood 81 mg/dL (70-110)
[2022-02-26 00:04] LABS: Glucose,Whole Blood 82 mg/dL (70-110)
[2022-02-26] MEDS: HYDROmorphone 1 MG/ML 1 ML SYRINGE IVP PRN ×5 (01:03→20:35)
[2022-02-26 06:52] LABS: Glucose,Whole Blood 131 mg/dL (70-110)
[2022-02-26] MEDS: PIPERACILLIN-TAZOBACTAM 3.375 GM in SODIUM CHLORIDE 0.9% 100 ML IVPB SCH ×3 (08:54→23:53)
[2022-02-26] MEDS: HEPARIN SODIUM,PORCINE/PF 5,000 UNIT/0.5 ML SYRINGE SQ SCH ×2 (08:54→20:37)
[2022-02-26] MEDS: PANTOPRAZOLE 40 MG/10 ML VIAL IVP SCH (08:55)
[2022-02-26] MEDS ORDERED: FUROSEMIDE 10 MG/ML 4 ML VIAL IV STA (10:03)
[2022-02-26] MEDS: GLYCOPYRROLATE 1 MG TAB PO SCH ×2 (11:03→20:36)
[2022-02-26] MEDS: IPRATROPIUM-ALBUTEROL 3 ML NEB INHALATION SCH ×3 (11:14→20:50)
[2022-02-26 12:05] LABS: Glucose,Whole Blood 114 mg/dL (70-110)
[2022-02-26 14:36] VITALS: BMI 20.5
--- NOTE | 2022-02-26 14:46 | P.PN ---
Subjective Progress Note Date: 02/26/22 This is a pleasant 21 years old male with no significant past medical history. Presents last night because ofright-sided chest pain, patient states that he has history of brain tumor and he is been done with his chemo and radiotherapy about 20 years ago. He is status post tracheostomy and PEG tube because of that. Patient states that he has a lot of secretion at baseline and history tracheostomy help him with getting an MRI. His oncologist is out of town in [place]. Last month his oncologist prescribed him antibiotic for bronchitis. This time he presents because of hard for him to breathe because it hurts whenever he takes deep breath on the right lower lung. He has chronic cough but also he is making some yellow phlegm for about a week. Patient has been constipated and did not have a ball for about 2 weeks also has been complaining of from mild bilateral abdominal pain about 5/10 Mindy no bowel movement or passing gas, but he was getting bolus of tube feeding through his PEG tube. He denies headache or dizziness, no weakness or numbness, no urinary complaints however repeat this morning about 600 mL Also he is generally weak. He denies smoking, alcohol or illicit drugs On admission his been febrile however he was tachycardic with heart rate 122 135. Also he is tachypneic and short of breath with a rate of 20, blood pressure is on the low side, last one box liner was 95/56. Visually his blood pressure systolic is 140-160. On admission his CBC is unremarkable except for low hemoglobin at 12.8. INR is 1.3. Sodium 133, creatinine normal 0.7. Liver enzymes not elevated. Gabriela is elevated 0.16, 0.2, 0.19. ProBNP is 1800. Coronavirus not detected. EKG showing sinus tachycardia with a rate of 138, QTC 334. No significant ST-T changes. Chest x-ray showing perihilar and basilar infiltrates presents with mild interval progression suggested by radiologist. When I reviewed the chest x-ray looks like patient has more right lower lobe infiltrate On admission he was started on ceftriaxone and Zithromax as well as heparin drip and aspirin. Versed 500 bolus and continued on normal saline at 1:30 milliliters per hour for about 1 L. Cardiology and pulmonary services were consulted 02/23/2022 Patient evaluated today sitting up in bed. He feels week. Continues to report increased secretions. Sputum culture is currently showing gram negative bacillus. prelim blood cultures are negative. He is currently maintained on IV zosyn and is also being hydrated with IV normal saline. Echocardiogram is currently pending. Pulmonary, cardiology are following patient closely. Patient also states no BM for he thinks about 2 weeks, tube feeds are infusing through PEG tube at 20 mls per hour with goal of 85 mls per hour with jevity 1.5. Nursing reports no residuals with tube feed, he does have hypoactive bowel sounds. KUB done on admission shows non obstructive bowel gas pattern. Patient is on narcotics for pain management which can be constipating. Will add bowel regimine. He continues on updrafts. procalcitonin level 0.51. 02/24/2022 Follow up chest xray showing bilateral lower lobe pneumonia and small effusion with is stable from yesterday. Patient continues on IV zosyn. Sputum is showing pseudomonas and streptococcus pneumoniae. Patient is being followed closely by pulmonary services. Patient had 2 loose BMs throughout the night. Continues with increased secretions, fatigue. Echocardiogram showing EF 55%, Severe right ventricular enlargement, trace mitral regurgitation, trace tricuspid regurgitation, small pericardial effusion. Consider BETHANIE or cardiac MRI for further eval of right ventricular enlargement. Cardiology is following patient closely. White count today 6.7, hgb 11.3, sodium 139, potassium 3.9, BUN 3, creatinine 0.54. blood glucose in the 120s. Patient remains afebrile, heart rate is in the 120s this morning. Blood pressure 119/79, 92% pulse oximetry. He is on 4 to 5 L nasal cannula. 02/26/2022 Patient evaluated today sitting up in bed. Overall he states he is feeling better. Cultures finalized and he continues on IV zosyn. Pulmonary is following patient closely as well as cardiology. Patient had chest CT angiography completed yesterday as D-Dimer elevated at 5.83. CTA shows no evidence for pulmonary embolism. There is cardiomegaly with pleural effusions and extensive pulmonary infiltrates. Mediastinal adenopathy that is most likely reactive. This could be significant RDS versus congestive heart failure. Noted that proBNP was 1800 on admission, patient has been receiving IV fluids. General surgery did evaluated PEG tube and it is okay to use for continuous enteral feedings, patient is not tolerating bolus feedings which possibly could be causing some aspiration. Patient does have crackles in his right base, and fluids have been decreased. IV lasix x 1 has been ordered from pulmonary. Review of Systems Constitutional: Reports fatigue. denied any fever. Cardio vascular: denied any chest pain, palpitations Gastrointestinal: denied any nausea, vomiting, diarrhea. Pulmonary: Denied any shortness of breath. Reports cough, increased secretions. Neurologic denied any new focal deficits All inpatient medications were reviewed and appropriate changes in these medications as dictated in the interval history and assessment and plan. Physical examination GENERAL: The patient is alert and oriented x3, not in any acute distress. Well developed, well nourished. HEENT: Pupils are round and equally reacting to light. EOMI. No scleral icterus. No conjunctival pallor. Normocephalic, atraumatic. No pharyngeal erythema. No thyromegaly. Status post tracheostomy CARDIOVASCULAR: S1 and S2 present. No murmurs, rubs, or gallops. PULMONARY: Bilateral bibasilar crackles, no wheezing. Congested cough. ABDOMEN: Soft, nontender, LLQ distention, Hypoactive bowel sounds. No palpable organomegaly. Status post PEG tube MUSCULOSKELETAL: No joint swelling or deformity. EXTREMITIES: No cyanosis, clubbing, or pedal edema. NEUROLOGICAL: Gross neurological examination did not reveal any focal deficits. SKIN: No rashes. No petechiae Assessment and Plan Assessment Acute hypoxic respiratory failure secondary to bilateral lower lobe pneumonia, more in the right lower lung. Sputum culture showing streptococcus pneumoniae and pseudomonas. Rule out aspiration. He has been weaned off oxygen and maintaining adequate saturations on room air. He continues on IV zosyn which provides coverage for both organisms. Bilateral lower lobe pneuomonia with sepsis, blood pressure and heart rate have improved. No longer tachycardic. Troponin leak secondary to above also evidence of right ventricular enlargement on echocardiogram History of brain tumor, with resection and chemoradiotherapy. Follow-up with oncologist as an outpatient History of dysphagia status post PEG tube and enteral feedings outpatient, also he is status post tracheostomy GI prophylaxis IV protonix DVT Prophylaxis Subcu heparin Plan Continue on current antibiotics with pulmonary following closely 2 D echocardiogram completed showing severe right ventricular enlargement Pulmonary, Cardiology following patient closely IV fluids have been decreased to KVO, patient given a dose of IV lasix today Bowel regmine Continue on enteral tube feedings; continuous feedings. Continue duonebs and oxygen support PT/OT following patient Discharge home once medically stable The impression and plan of care has been dictated by Leti Shahid Nurse Practitioner as directed. Dr. Ivonne MD I have performed a history and physical examination and medical decision making of this patient, discussed the same with the dictator, and agree with the dictators assessment and plan as written, documented as a scribe. Based on total visit time, I have performed more than 50% of this visit. Objective - Vital Signs Vital signs: Vital Signs Temp 98.6 F 02/26/22 12:17 Pulse 95 02/26/22 12:17 Resp 16 02/26/22 12:17 BP 106/60 02/26/22 12:17 Pulse Ox 92 L 02/26/22 12:17 FiO2 28 02/22/22 11:24 Intake & Output 02/25/22 02/26/22 02/26/22 18:59 06:59 18:59 Intake Total 1250 Output Total 749 569 0347 Balance 400 -250 -2100 Weight 66.9 kg Intake: Intake, IV Titration 660 Amount Piperacillin-Tazobactam 3 200 .375 gm In Sodium Chloride 0.9% 100 ml @ 25 mls/hr IVPB Q8HR [facility] Rx# :[id number] Sodium Chloride 0.9% 1, 460 000 ml @ 10 mls/hr IV . Q24H [facility] Rx#:[id number] Tube Feeding 350 Other 240 Output: Urine 417 198 4505 Other: Voiding Method Urinal - Labs CBC & Chem 7: 02/25/22 07:07 02/25/22 07:07 Labs: Abnormal Lab Results - Last 24 Hours (Table) 02/26/22 02/26/22 Range/Units 06:50 12:04 POC Glucose (mg/dL) 131 H 114 H (70-110) mg/dL Microbiology - Last 24 Hours (Table) 02/21/22 22:15 Blood Culture - Preliminary Blood No Growth after 96 hours 02/21/22 22:00 Blood Culture - Preliminary Blood No Growth after 96 hours 02/22/22 10:20 Gram Stain - Final Sputum Sputum Culture - Final Pseudomonas aeruginosa Streptococcus pneumoniae Assessment and Plan Time with Patient: Less than 30
--- NOTE | 2022-02-26 15:10 | P.PN ---
Subjective Progress Note Date: 02/26/22 CHIEF COMPLAINT: Pneumonia HISTORY OF PRESENT ILLNESS: Surgical service following regards to leaking around PEG tube. This leaking has been present for the last 1 month. PEG tube is still functioning. He is tolerating the bolus feedings. Denies any abdominal pain. Denies any nausea or vomiting. Afebrile Patient seen and examined with Dr. Casillas PHYSICAL EXAM: VITAL SIGNS: Reviewed. GENERAL: Well-developed in no acute distress. HEENT: No sclera icterus. Extraocular movements grossly intact. Moist buccal mucosa. Head is atraumatic, normocephalic. ABDOMEN: Soft. Nondistended. Nontender. Minimal drainage noted around PEG tube site. Consistent with tube feeds NEUROLOGIC: Alert and oriented. Cranial nerves II through XII grossly intact. ASSESSMENT: 1. Minimal leaking around PEG tube PLAN: -Add zinc oxide to skin around the PEG tube for protection -PEG tube is functioning. Okay to continue PEG tube feedings -Continue supportive care Physician Manager Family note has been reviewed by physician. Signing provider agrees with the documented findings, assessment, and plan of care. Objective - Vital Signs Vital signs: Vital Signs Temp 98.6 F 02/26/22 12:17 Pulse 95 02/26/22 12:17 Resp 16 02/26/22 12:17 BP 106/60 02/26/22 12:17 Pulse Ox 92 L 02/26/22 12:17 FiO2 28 02/22/22 11:24 Intake & Output 02/25/22 02/26/22 02/26/22 18:59 06:59 18:59 Intake Total 1250 350 Output Total 616 495 2617 Balance 400 -250 -1750 Weight 66.9 kg 66.9 kg Intake: Intake, IV Titration 660 Amount Piperacillin-Tazobactam 3 200 .375 gm In Sodium Chloride 0.9% 100 ml @ 25 mls/hr IVPB Q8HR [facility] Rx# :[id number] Sodium Chloride 0.9% 1, 460 000 ml @ 10 mls/hr IV . Q24H [facility] Rx#:[id number] Tube Feeding 350 350 Other 240 Output: Urine 213 147 9965 Other: Voiding Method Urinal - Labs CBC & Chem 7: 02/25/22 07:07 02/25/22 07:07 Labs: Abnormal Lab Results - Last 24 Hours (Table) 02/26/22 02/26/22 Range/Units 06:50 12:04 POC Glucose (mg/dL) 131 H 114 H (70-110) mg/dL Microbiology - Last 24 Hours (Table) 02/21/22 22:15 Blood Culture - Preliminary Blood No Growth after 96 hours 02/21/22 22:00 Blood Culture - Preliminary Blood No Growth after 96 hours 02/22/22 10:20 Gram Stain - Final Sputum Sputum Culture - Final Pseudomonas aeruginosa Streptococcus pneumoniae
[2022-02-26] MEDS: SODIUM CHLORIDE 0.9% 1,000 ML IV SCH (15:54)
[2022-02-26] MEDS ORDERED: FUROSEMIDE 10 MG/ML 4 ML VIAL IV ONE (16:00)
[2022-02-26] MEDS: ZINC OXIDE 20% OINT 28.4 GM TUBE TOPICAL PRN (16:20)
--- NOTE | 2022-02-26 17:09 | P.PN ---
Subjective Progress Note Date: 02/26/22 Principal diagnosis: Dyspnea 02/24/2022, the patient is doing well. The sputum as mentioned showed a gram- negative bacillus and the final cultures and sensitivities are still pending. Meanwhile the patient continues to be on IV Zosyn. He still has a congested cough. He is doing adequate pulmonate toileting. Is able to cough up secretions. Repeat chest x-ray was done and showed stable bilateral pulmonary infiltrates with small effusions. Essentially the findings are unchanged compared to yesterday. Meanwhile, the patient has a white cell count of 6.7 with a hemoglobin 11.3 and a platelet count of 354. Electrodes are all within normal limits. As mentioned, the patient is a Shiley tracheostomy tube in place. He is on 4 L nasal cannula to maintain a saturation above around 94%. He is receiving enteral feeding for nutritional support. The patient on Ritot which is running at the rate of 20 mL an hour. 02/25/2022, the patient is stable. Nevertheless, his cough and not copious amount of foamy, white, rest or secretions is easily able to cough it out thr ough his tracheostomy tube. This is in copious amounts. Cultures within were obtained yesterday showed a polymicrobial growth and this included pseudomonas aeruginosa that was sensitive to Zosyn and the patient also had streptococcal pneumonia which was sensitive to various antibiotics offered. On today's evaluation, the patient is doing well. No symptoms of any significant respiratory distress. He remains on Ritot for enteral feeding and nutritional support. No chest pain. No hemoptysis or pleurisy. Shiley tracheostomy tube remains in place. The patient's white cell count of 5.5 with a hemoglobin of 11.7. Electrodes are normal. Calcium level is at 3.2. Sodium level is at 138. Pulse ox on room air oxygen is 94%. He is afebrile. No significant tachycardia otherwise for now. No nausea. No vomiting. No emesis. No aspiration. On 02/26/2022 patient seen in follow-up on [facility] care [facility], he does have a defective cough, he is able to expectorate copious amount of tracheal bronchial secretions, which seems to be refrigeration tech in color and not as thick. Room air pulse ox is 91-92%, he is afebrile. Vital signs have been stable. His sputum culture was positive for Streptococcus pneumonia and pseudomonas aeruginosa he remains on Zosyn for antibiotic coverage. No fever or chills, he is awake and alert, his been self suctioning, and coughing and clearing his secretions. He states normally he takes Robinul at home to continue back on tracheobronchial secretions. And he requested to reordered for him in the hospital. He is tolerating tube feedings, no hemoptysis. CT angiogram of the chest showed no evidence of pulmonary embolism, currently show cardiomegaly with pleural effusions and extensive pulmonary infiltrates. There was some mediastinal adenopathy as well as likely reactive. Congestive heart failure was also a consideration. Objective - Vital Signs Vital signs: Vital Signs Temp 97.6 F 02/26/22 16:00 Pulse 108 H 02/26/22 16:00 Resp 15 02/26/22 16:00 BP 100/59 02/26/22 16:00 Pulse Ox 91 L 02/26/22 16:00 FiO2 28 02/22/22 11:24 Intake & Output 02/25/22 02/26/22 02/26/22 18:59 06:59 18:59 Intake Total 1250 350 Output Total 908 334 5991 Balance 400 -250 -1750 Weight 66.9 kg 66.9 kg Intake: Intake, IV Titration 660 Amount Piperacillin-Tazobactam 3 200 .375 gm In Sodium Chloride 0.9% 100 ml @ 25 mls/hr IVPB Q8HR [facility] Rx# :[id number] Sodium Chloride 0.9% 1, 460 000 ml @ 10 mls/hr IV . Q24H [facility] Rx#:[id number] Tube Feeding 350 350 Other 240 Output: Urine 351 141 [id number] Other: Voiding Method Urinal - Exam GENERAL EXAM: Alert, very pleasant, 21-year-old white comfortable in no apparent distress. HEAD: Normocephalic/atraumatic. EYES: Normal reaction of pupils, equal size. Conjunctiva pink, sclera white. NOSE: Clear with pink turbinates. THROAT: No erythema or exudates. NECK: No masses, no JVD, no thyroid enlargement, no adenopathy. Midline tracheostomy is in place, patient is bringing up large amounts of tracheal bronchial secretions that are white in color CHEST: No chest wall deformity. Symmetrical expansion. LUNGS: Equal air entry with no crackles, wheeze, rhonchi or dullness. CVS: Regular rate and rhythm, normal S1 and S2, no gallops, no murmurs, no rubs ABDOMEN: Soft, nontender. No hepatosplenomegaly, normal bowel sounds, no guarding or rigidity. PEG tube is in place, patient is receiving PEG tube feedings EXTREMITIES: No clubbing, no edema, no cyanosis, 2+ pulses and upper and lower extremities. MUSCULOSKELETAL: Muscle strength and tone normal. SPINE: No scoliosis or deformity SKIN: No rashes CENTRAL NERVOUS SYSTEM: Alert and oriented -3. No focal deficits, tone is normal in all 4 extremities. PSYCHIATRIC: Alert and oriented -3. Appropriate affect. Intact judgment and insight. - Labs CBC & Chem 7: 02/25/22 07:07 02/25/22 07:07 Labs: Abnormal Lab Results - Last 24 Hours (Table) 02/26/22 02/26/22 Range/Units 06:50 12:04 POC Glucose (mg/dL) 131 H 114 H (70-110) mg/dL Microbiology - Last 24 Hours (Table) 02/21/22 22:15 Blood Culture - Preliminary Blood No Growth after 96 hours 02/21/22 22:00 Blood Culture - Preliminary Blood No Growth after 96 hours 02/22/22 10:20 Gram Stain - Final Sputum Sputum Culture - Final Pseudomonas aeruginosa Streptococcus pneumoniae Assessment and Plan Plan: Assessment: Acute hypoxemic respiratory failure secondary to bilateral pneumonia, and the patient has grown a combination of pseudomonas aeruginosa and streptococcal pneumonia on his Gram stain and culture. Mother the patient is currently on IV Zosyn and this is considered to be an adequate antibiotic coverage based on the cultures and sensitivities. Consider aspiration. Consider hospital-acquired pneumonia. Clinically the patient is improving and the patient is able to come off the oxygen with pulse ox on room air is around 94%. Bilateral lower lobe pneumonia, with secondary hypoxic respiratory failure and shortness of breath, improved Troponin leak, secondary to above History of brain cancer, status post surgical excision, and chemoradiation. Previous history of tracheostomy and PEG tube placement. PEG tube for Enteral feeding, Jevity at 20 cc/hour Recent treatment for bronchitis by his medical oncologist. Generalized debility secondary to above Plan: Continue Zosyn Give the patient 2 doses of Lasix 40 mg 2 Start Robinul 1 mg twice daily Patient can continue self suctioning as needed and encourage and assist with pulmonary toileting Continue DuoNeb Continue GI and DVT prophylaxis Enteral feedings I have personally seen and examined the patient, performed the documentation and the assessment and plan as written. I have personally seen and examined the patient and reviewed the documentation. I performed a joint evaluation with the nurse practitioner in this evaluation was done more than 20 minutes. I fully agree with the documentation above and the plan of care. Time with Patient: Less than 30
[2022-02-26 18:04] LABS: Glucose,Whole Blood 101 mg/dL (70-110)
[2022-02-27 00:08] LABS: Glucose,Whole Blood 98 mg/dL (70-110)
[2022-02-27] MEDS: HYDROmorphone 1 MG/ML 1 ML SYRINGE IVP PRN ×5 (00:56→23:39)
[2022-02-27 06:16] LABS: Glucose,Whole Blood 131 mg/dL (70-110)
[2022-02-27] MEDS: IPRATROPIUM-ALBUTEROL 3 ML NEB INHALATION SCH ×4 (07:17→19:23)
[2022-02-27 08:47] LABS: Basophils % (A) 0 %; Eosinophils # (A) 0.1 k/uL (0-0.7); Eosinophils % (A) 2 %; HCT 36.1 % (39.0-53.0); Hypochromasia Slight; Lymphocytes # (A) 0.6 k/uL (1.0-4.8); Lymphocytes % (A) 12 %; MCH 28.4 pg (25.0-35.0); MCHC 30.4 g/dL (31.0-37.0); MCV 93.5 fL (80.0-100.0); Mean Platelet Volume 7.1; Monocytes # (A) 0.3 k/uL (0-1.0); Monocytes % (A) 7 %; Neutrophils # (A) 4.1 k/uL (1.3-7.7); Neutrophils % (A) 78 %; Platelet Count 366 k/uL (150-450); RBC 3.86 m/uL (4.30-5.90); RDW 14.1 % (11.5-15.5); WBC 5.3 k/uL (3.8-10.6)
[2022-02-27] MEDS: GLYCOPYRROLATE 1 MG TAB PO SCH ×2 (09:01→21:12)
[2022-02-27] MEDS: PIPERACILLIN-TAZOBACTAM 3.375 GM in SODIUM CHLORIDE 0.9% 100 ML IVPB SCH ×3 (09:01→23:39)
[2022-02-27] MEDS: PANTOPRAZOLE 40 MG/10 ML VIAL IVP SCH (09:01)
[2022-02-27] MEDS: HEPARIN SODIUM,PORCINE/PF 5,000 UNIT/0.5 ML SYRINGE SQ SCH ×2 (09:01→21:12)
[2022-02-27] MEDS: ZINC OXIDE 20% OINT 28.4 GM TUBE TOPICAL PRN (09:03)
[2022-02-27 09:04] LABS: African American GFR (CKD) >90 (>60 ml/min/1.73 sqM); Anion Gap 6 mmol/L; Blood Urea Nitrogen 15 mg/dL (9-20); Calcium 8.4 mg/dL (8.4-10.2); Carbon Dioxide 35 mmol/L (22-30); Chloride 99 mmol/L (98-107); Glucose 110 mg/dL (74-99); Magnesium 2.1 mg/dL (1.6-2.3); Non-African American GFR(CKD) >90 (>60 ml/min/1.73 sqM); Potassium 4.1 mmol/L (3.5-5.1); Sodium 140 mmol/L (137-145)
[2022-02-27 12:01] LABS: Glucose,Whole Blood 102 mg/dL (70-110)
--- NOTE | 2022-02-27 14:24 | P.PN ---
Subjective Progress Note Date: 02/27/22 02/24/2022, the patient is doing well. The sputum as mentioned showed a gram- negative bacillus and the final cultures and sensitivities are still pending. Meanwhile the patient continues to be on IV Zosyn. He still has a congested cough. He is doing adequate pulmonate toileting. Is able to cough up se cretions. Repeat chest x-ray was done and showed stable bilateral pulmonary infiltrates with small effusions. Essentially the findings are unchanged compared to yesterday. Meanwhile, the patient has a white cell count of 6.7 with a hemoglobin 11.3 and a platelet count of 354. Electrodes are all within normal limits. As mentioned, the patient is a Shiley tracheostomy tube in place. He is on 4 L nasal cannula to maintain a saturation above around 94%. He is receiving enteral feeding for nutritional support. The patient on [employer] which is running at the rate of 20 mL an hour. 02/25/2022, the patient is stable. Nevertheless, his cough and not copious amount of foamy, white, rest or secretions is easily able to cough it out through his tracheostomy tube. This is in copious amounts. Cultures within were obtained yesterday showed a polymicrobial growth and this included pseudomonas aeruginosa that was sensitive to Zosyn and the patient also had streptococcal pneumonia which was sensitive to various antibiotics offered. On today's evaluation, the patient is doing well. No symptoms of any significant respiratory distress. He remains on Medlert for enteral feeding and nutritional support. No chest pain. No hemoptysis or pleurisy. Shiley tracheostomy tube remains in place. The patient's white cell count of 5.5 with a hemoglobin of 11.7. Electrodes are normal. Calcium level is at 3.2. Sodium level is at 138. Pulse ox on room air oxygen is 94%. He is afebrile. No significant tachycardia otherwise for now. No nausea. No vomiting. No emesis. No aspiration. On 02/26/2022 patient seen in follow-up on [facility] care unit, he does have a defective cough, he is able to expectorate copious amount of tracheal bronchial secretions, which seems to be drafter heating and ventilating in color and not as thick. Room air pulse ox is 91-92%, he is afebrile. Vital signs have been stable. His sputum culture was positive for Streptococcus pneumonia and pseudomonas aeruginosa he remains on Zosyn for antibiotic coverage. No fever or chills, he is awake and alert, his been self suctioning, and coughing and clearing his secretions. He states normally he takes Robinul at home to continue back on tracheobronchial secretions. And he requested to reordered for him in the hospital. He is tolerating tube feedings, no hemoptysis. CT angiogram of the chest showed no evidence of pulmonary embolism, currently show cardiomegaly with pleural effusions and extensive pulmonary infiltrates. There was some mediastinal adenopathy as well as likely reactive. Congestive heart failure was also a consideration. 02/27/2022, the patient is feeling well. No new complaints. Respiratory secretions and improve that the patient was started on Robinul yesterday.. The patient is still producing some secretions which is able to cough out through his tracheostomy without any major difficulties. He remains on IV Zosyn.He is feeling fatigued. Nevertheless, there is no altered mentation. No lethargy. He is able to suction himself and do adequate pulmonary toileting. The patient's white cell count of 5.3 with a hemoglobin of 11 and his sodium level is at 140. He is a 50 with a creatinine 0.6. No other new complaints or any other significant events overnight. He is tolerating enteral feeding for nutritional support for now. Objective - Vital Signs Vital signs: Vital Signs Temp 97.8 F 02/27/22 12:00 Pulse 98 02/27/22 12:00 Resp 18 02/27/22 12:00 BP 110/77 02/27/22 12:00 Pulse Ox 98 02/27/22 12:00 FiO2 28 02/22/22 11:24 Intake & Output 02/26/22 02/27/22 02/27/22 18:59 06:59 18:59 Intake Total 1750 Output Total 3950 350 500 Balance -2200 -350 -500 Weight 66.9 kg Intake: Intake, IV Titration 200 Amount Piperacillin-Tazobactam 3 200 .375 gm In Sodium Chloride 0.9% 100 ml @ 25 mls/hr IVPB Q8HR [facility] Rx# :[id number] Tube Feeding 1430 Other 120 Output: Urine 3950 350 500 Other: Voiding Method Urinal Urinal - Exam GENERAL EXAM: Alert, very pleasant, 21-year-old white comfortable in no apparent distress. HEAD: Normocephalic/atraumatic. EYES: Normal reaction of pupils, equal size. Conjunctiva pink, sclera white. NOSE: Clear with pink turbinates. THROAT: No erythema or exudates. NECK: No masses, no JVD, no thyroid enlargement, no adenopathy. Midline tracheostomy is in place, patient is bringing up large amounts of tracheal bronchial secretions that are white in color CHEST: No chest wall deformity. Symmetrical expansion. LUNGS: Equal air entry with no crackles, wheeze, rhonchi or dullness. CVS: Regular rate and rhythm, normal S1 and S2, no gallops, no murmurs, no rubs ABDOMEN: Soft, nontender. No hepatosplenomegaly, normal bowel sounds, no guarding or rigidity. PEG tube is in place, patient is receiving PEG tube feedings EXTREMITIES: No clubbing, no edema, no cyanosis, 2+ pulses and upper and lower extremities. MUSCULOSKELETAL: Muscle strength and tone normal. SPINE: No scoliosis or deformity SKIN: No rashes CENTRAL NERVOUS SYSTEM: Alert and oriented -3. No focal deficits, tone is normal in all 4 extremities. PSYCHIATRIC: Alert and oriented -3. Appropriate affect. Intact judgment and insight. - Labs CBC & Chem 7: 02/27/22 08:27 02/27/22 08:27 Labs: Abnormal Lab Results - Last 24 Hours (Table) 02/27/22 02/27/22 02/27/22 Range/Units 06:14 08:27 08:27 RBC 3.86 L (4.30-5.90) m/uL Hgb 11.0 L (13.0-17.5) gm/dL Hct 36.1 L (39.0-53.0) % MCHC 30.4 L (31.0-37.0) g/dL Lymphocytes # 0.6 L (1.0-4.8) k/uL Carbon Dioxide 35 H (22-30) mmol/L Creatinine 0.63 L (0.66-1.25) mg/dL Glucose 110 H (74-99) mg/dL POC Glucose (mg/dL) 131 H (70-110) mg/dL Microbiology - Last 24 Hours (Table) 02/21/22 22:00 Blood Culture - Preliminary Blood No Growth after 120 hours 02/21/22 22:15 Blood Culture - Preliminary Blood No Growth after 120 hours Assessment and Plan Plan: Assessment: Acute hypoxemic respiratory failure secondary to bilateral pneumonia, and the patient has grown a combination of pseudomonas aeruginosa and streptococcal pneumonia on his Gram stain and culture. Mother the patient is currently on IV Zosyn and this is considered to be an adequate antibiotic coverage based on the cultures and sensitivities. Consider aspiration. Consider hospital-acquired pneumonia. Clinically the patient is improving and the patient is able to come off the oxygen with pulse ox on room air is around 94%. The patient is clinically stable. We have noticed some improvement in the respiratory secretions over the past 24 hours as the patient was started on Lovenox. Bilateral lower lobe pneumonia, with secondary hypoxic respiratory failure and shortness of breath, improved Troponin leak, secondary to above History of brain cancer, status post surgical excision, and chemoradiation. Previous history of tracheostomy and PEG tube placement. PEG tube for Enteral feeding, Jevity at 20 cc/hour Recent treatment for bronchitis by his medical oncologist. Generalized debility secondary to above Plan: Repeat chest x-ray in the morning Continue Zosyn Continue Robinul 1 mg twice daily Patient can continue self suctioning as needed and encourage and assist with pulmonary toileting Continue DuoNeb Continue GI and DVT prophylaxis Enteral feedings to be continued We'll continue to follow
--- NOTE | 2022-02-27 14:35 | P.PN ---
Subjective Progress Note Date: 02/27/22 CHIEF COMPLAINT: Pneumonia HISTORY OF PRESENT ILLNESS: Surgical service following regards to leaking around PEG tube. This leaking has been present for the last 1 month. PEG tube is still functioning. He is tolerating the bolus feedings. Denies any abdominal pain. Denies any nausea or vomiting. Afebrile Patient seen and examined with Dr. Casillas PHYSICAL EXAM: VITAL SIGNS: Reviewed. GENERAL: Well-developed in no acute distress. HEENT: No sclera icterus. Extraocular movements grossly intact. Moist buccal mucosa. Head is atraumatic, normocephalic. ABDOMEN: Soft. Nondistended. Nontender. Minimal drainage noted around PEG tube site. NEUROLOGIC: Alert and oriented. Cranial nerves II through XII grossly intact. ASSESSMENT: 1. Minimal leaking around PEG tube PLAN: -No surgical intervention plan -continue zinc oxide to skin around the PEG tube for protection -PEG tube is functioning. Okay to continue PEG tube feedings -Continue supportive care Physician Senior Business Broker note has been reviewed by physician. Signing provider agrees with the documented findings, assessment, and plan of care. Objective - Vital Signs Vital signs: Vital Signs Temp 97.8 F 02/27/22 12:00 Pulse 98 02/27/22 12:00 Resp 18 02/27/22 12:00 BP 110/77 02/27/22 12:00 Pulse Ox 98 02/27/22 12:00 FiO2 28 02/22/22 11:24 Intake & Output 02/26/22 02/27/22 02/27/22 18:59 06:59 18:59 Intake Total 1750 Output Total 3950 350 500 Balance -2200 -350 -500 Weight 66.9 kg Intake: Intake, IV Titration 200 Amount Piperacillin-Tazobactam 3 200 .375 gm In Sodium Chloride 0.9% 100 ml @ 25 mls/hr IVPB Q8HR [facility] Rx# :[id number] Tube Feeding 1430 Other 120 Output: Urine 3950 350 500 Other: Voiding Method Urinal Urinal - Labs CBC & Chem 7: 02/27/22 08:27 02/27/22 08:27 Labs: Abnormal Lab Results - Last 24 Hours (Table) 02/27/22 02/27/22 02/27/22 Range/Units 06:14 08:27 08:27 RBC 3.86 L (4.30-5.90) m/uL Hgb 11.0 L (13.0-17.5) gm/dL Hct 36.1 L (39.0-53.0) % MCHC 30.4 L (31.0-37.0) g/dL Lymphocytes # 0.6 L (1.0-4.8) k/uL Carbon Dioxide 35 H (22-30) mmol/L Creatinine 0.63 L (0.66-1.25) mg/dL Glucose 110 H (74-99) mg/dL POC Glucose (mg/dL) 131 H (70-110) mg/dL Microbiology - Last 24 Hours (Table) 02/21/22 22:00 Blood Culture - Preliminary Blood No Growth after 120 hours 02/21/22 22:15 Blood Culture - Preliminary Blood No Growth after 120 hours
[2022-02-27] MEDS: SODIUM CHLORIDE 0.9% 1,000 ML IV SCH (15:54)
[2022-02-27 18:13] LABS: Glucose,Whole Blood 114 mg/dL (70-110)
[2022-02-27 20:16] LABS: Glucose,Whole Blood 164 mg/dL (70-110)
[2022-02-28 00:57] LABS: Glucose,Whole Blood 146 mg/dL (70-110)
[2022-02-28] MEDS: HYDROmorphone 1 MG/ML 1 ML SYRINGE IVP PRN ×5 (03:53→23:37)
[2022-02-28 06:52] LABS: Glucose,Whole Blood 112 mg/dL (70-110)
--- NOTE | 2022-02-28 06:56 | XR ---
EXAMINATION TYPE: XR chest 1V DATE OF EXAM: 02/28/2022 6:42 AM COMPARISON: Chest radiographs from CTA chest 02/25/2022, chest radiograph 02/24/2022 TECHNIQUE: XR chest 1V Portable AP radiograph of the chest. CLINICAL INDICATION:Male, 21 years old with history of Pneumonia follow-up; FINDINGS: Lungs/Pleura: No pneumothorax. Small bilateral pleural effusions with improved bibasilar airspace [place]. Pulmonary vascularity: Unremarkable. Heart/mediastinum: Stable cardiomediastinal silhouette. Musculoskeletal: No acute osseous pathology. Lines/Tubes: Endotracheal tube with distal tip 6.6 cm above the kiah IMPRESSION: Small bilateral pleural effusions with improved bibasilar airspace opacities. Endotracheal tube in stable position.
[2022-02-28] MEDS: IPRATROPIUM-ALBUTEROL 3 ML NEB INHALATION SCH ×4 (08:52→19:41)
[2022-02-28] MEDS ORDERED: FUROSEMIDE 10 MG/ML 2 ML VIAL IV ONE (09:21)
[2022-02-28] MEDS: PIPERACILLIN-TAZOBACTAM 3.375 GM in SODIUM CHLORIDE 0.9% 100 ML IVPB SCH ×3 (10:20→23:37)
[2022-02-28] MEDS: PANTOPRAZOLE 40 MG/10 ML VIAL IVP SCH (10:22)
[2022-02-28] MEDS: HEPARIN SODIUM,PORCINE/PF 5,000 UNIT/0.5 ML SYRINGE SQ SCH ×2 (10:22→20:56)
[2022-02-28] MEDS: GLYCOPYRROLATE 1 MG TAB PO SCH ×2 (10:43→20:56)
--- NOTE | 2022-02-28 10:44 | P.PN ---
Progress Note - Text Progress Note Date: 02/28/22 Nursing staff the patient's PEG tube is functional. He's had minimal drainage. They're attempting to place. Cream when the patient is agreeable. PEG tube with some excoriation skin. Patient did receive local wound care and supportive care.
--- NOTE | 2022-02-28 11:38 | P.PN ---
Subjective Progress Note Date: 02/28/22 02/24/2022, the patient is doing well. The sputum as mentioned showed a gram- negative bacillus and the final cultures and sensitivities are still pending. Meanwhile the patient continues to be on IV Zosyn. He still has a congested cough. He is doing adequate pulmonate toileting. Is able to cough up se cretions. Repeat chest x-ray was done and showed stable bilateral pulmonary infiltrates with small effusions. Essentially the findings are unchanged compared to yesterday. Meanwhile, the patient has a white cell count of 6.7 with a hemoglobin 11.3 and a platelet count of 354. Electrodes are all within normal limits. As mentioned, the patient is a Shiley tracheostomy tube in place. He is on 4 L nasal cannula to maintain a saturation above around 94%. He is receiving enteral feeding for nutritional support. The patient on [employer] which is running at the rate of 20 mL an hour. 02/25/2022, the patient is stable. Nevertheless, his cough and not copious amount of foamy, white, rest or secretions is easily able to cough it out through his tracheostomy tube. This is in copious amounts. Cultures within were obtained yesterday showed a polymicrobial growth and this included pseudomonas aeruginosa that was sensitive to Zosyn and the patient also had streptococcal pneumonia which was sensitive to various antibiotics offered. On today's evaluation, the patient is doing well. No symptoms of any significant respiratory distress. He remains on [employer] for enteral feeding and nutritional support. No chest pain. No hemoptysis or pleurisy. Shiley tracheostomy tube remains in place. The patient's white cell count of 5.5 with a hemoglobin of 11.7. Electrodes are normal. Calcium level is at 3.2. Sodium level is at 138. Pulse ox on room air oxygen is 94%. He is afebrile. No significant tachycardia otherwise for now. No nausea. No vomiting. No emesis. No aspiration. On 02/26/2022 patient seen in follow-up on [facility], he does have a defective cough, he is able to expectorate copious amount of tracheal bronchial secretions, which seems to be shortage worker in color and not as thick. Room air pulse ox is 91-92%, he is afebrile. Vital signs have been stable. His sputum culture was positive for Streptococcus pneumonia and pseudomonas aeruginosa he remains on Zosyn for antibiotic coverage. No fever or chills, he is awake and alert, his been self suctioning, and coughing and clearing his secretions. He states normally he takes Robinul at home to continue back on tracheobronchial secretions. And he requested to reordered for him in the hospital. He is tolerating tube feedings, no hemoptysis. CT angiogram of the chest showed no evidence of pulmonary embolism, currently show cardiomegaly with pleural effusions and extensive pulmonary infiltrates. There was some mediastinal adenopathy as well as likely reactive. Congestive heart failure was also a consideration. 02/27/2022, the patient is feeling well. No new complaints. Respiratory secretions and improve that the patient was started on Robinul yesterday.. The patient is still producing some secretions which is able to cough out through his tracheostomy without any major difficulties. He remains on IV Zosyn.He is feeling fatigued. Nevertheless, there is no altered mentation. No lethargy. He is able to suction himself and do adequate pulmonary toileting. The patient's white cell count of 5.3 with a hemoglobin of 11 and his sodium level is at 140. He is a 50 with a creatinine 0.6. No other new complaints or any other significant events overnight. He is tolerating enteral feeding for nutritional support for now. 02/27/2022, the patient is doing well. His secretions gradually continued to improve although still producing oral and secretions from his tracheostomy tube. He remains on IV Zosyn. Repeat chest x-ray was done today showed bilateral pleural effusions that are currently stable. The patient will be given a dose of Lasix. He is afebrile. Hemodynamically stable. He is taking glycopyrrolate improve his aspirin secretions. This has helped. IV fluids are currently at KVO. Objective - Vital Signs Vital signs: Vital Signs Temp 98.4 F 02/28/22 03:57 Pulse 94 02/28/22 09:09 Resp 18 02/28/22 03:57 BP 96/51 02/28/22 03:57 Pulse Ox 94 L 02/28/22 03:57 FiO2 28 02/22/22 11:24 Intake & Output 02/27/22 02/28/22 02/28/22 18:59 06:59 18:59 Intake Total 1440 Output Total 175 371 8963 Balance -500 840 -1250 Intake: Tube Feeding 1440 Output: Urine 433 667 2993 Other: Voiding Method Urinal # Voids 1 - Exam GENERAL EXAM: Alert, very pleasant, 21-year-old white comfortable in no apparent distress. HEAD: Normocephalic/atraumatic. EYES: Normal reaction of pupils, equal size. Conjunctiva pink, sclera white. NOSE: Clear with pink turbinates. THROAT: No erythema or exudates. NECK: No masses, no JVD, no thyroid enlargement, no adenopathy. Midline tracheostomy is in place, patient is bringing up large amounts of tracheal bronchial secretions that are white in color CHEST: No chest wall deformity. Symmetrical expansion. LUNGS: Equal air entry with no crackles, wheeze, rhonchi or dullness. CVS: Regular rate and rhythm, normal S1 and S2, no gallops, no murmurs, no rubs ABDOMEN: Soft, nontender. No hepatosplenomegaly, normal bowel sounds, no guarding or rigidity. PEG tube is in place, patient is receiving PEG tube feedings EXTREMITIES: No clubbing, no edema, no cyanosis, 2+ pulses and upper and lower extremities. MUSCULOSKELETAL: Muscle strength and tone normal. SPINE: No scoliosis or deformity SKIN: No rashes CENTRAL NERVOUS SYSTEM: Alert and oriented -3. No focal deficits, tone is normal in all 4 extremities. PSYCHIATRIC: Alert and oriented -3. Appropriate affect. Intact judgment and insight. - Labs CBC & Chem 7: 02/27/22 08:27 02/27/22 08:27 Labs: Abnormal Lab Results - Last 24 Hours (Table) 02/27/22 02/27/22 02/28/22 Range/Units 18:10 20:14 00:55 POC Glucose (mg/dL) 114 H 164 H 146 H (70-110) mg/dL 02/28/22 Range/Units 06:51 POC Glucose (mg/dL) 112 H (70-110) mg/dL Microbiology - Last 24 Hours (Table) 02/21/22 22:15 Blood Culture - Final Blood No Growth after 144 hours 02/21/22 22:00 Blood Culture - Final Blood No Growth after 144 hours Assessment and Plan Plan: Assessment: Acute hypoxemic respiratory failure secondary to bilateral pneumonia, and the patient has grown a combination of pseudomonas aeruginosa and streptococcal pneumonia on his Gram stain and culture. Mother the patient is currently on IV Zosyn and this is considered to be an adequate antibiotic coverage based on the cultures and sensitivities. Consider aspiration. Consider hospital-acquired pneumonia. Clinically the patient is improving and the patient is able to come off the oxygen with pulse ox on room air is around 94%. The patient is clinically stable. We have noticed some improvement in the respiratory secretions over the past 24 hours as the patient was started on Robinul and is of quite a bit Bilateral pleural effusions Bilateral lower lobe pneumonia, with secondary hypoxic respiratory failure and shortness of breath, improved Troponin leak, secondary to above History of brain cancer, status post surgical excision, and chemoradiation. Previous history of tracheostomy and PEG tube placement. PEG tube for Enteral feeding, Jevity at 20 cc/hour Recent treatment for bronchitis by his medical oncologist. Generalized debility secondary to above Plan: Condition remains stable and there is ongoing improvement Repeat chest x-ray in the morning was noted and the patient bilateral pleural effusions and the patient will be given a dose of Lasix 20 mg IV push Continue Zosyn Continue Robinul 1 mg twice daily Patient can continue self suctioning as needed and encourage and assist with pulmonary toileting Continue DuoNeb Continue GI and DVT prophylaxis Enteral feedings to be continued We'll continue to follow
[2022-02-28 11:57] LABS: Glucose,Whole Blood 126 mg/dL (70-110)
--- NOTE | 2022-02-28 13:10 | P.PN ---
Subjective Progress Note Date: 02/27/22 21 years old male with no significant past medical history. Presents last night because ofright-sided chest pain, patient states that he has history of brain tumor and he is been done with his chemo and radiotherapy about 20 years ago. He is status post tracheostomy and PEG tube because of that. Patient states that he has a lot of secretion at baseline and history tracheostomy help him with getting an MRI. His oncologist is out of town in [place]. Last month his oncologist prescribed him antibiotic for bronchitis. This time he presents because of hard for him to breathe because it hurts whenev er he takes deep breath on the right lower lung. He has chronic cough but also he is making some yellow phlegm for about a week. Patient has been constipated and did not have a ball for about 2 weeks also has been complaining of from mild bilateral abdominal pain about 5/10 Mindy no bowel movement or passing gas, but he was getting bolus of tube feeding through his PEG tube. He denies headache or dizziness, no weakness or numbness, no urinary complaints however repeat this morning about 600 mL Also he is generally weak. He denies smoking, alcohol or illicit drugs On admission his been febrile however he was tachycardic with heart rate 122 135. 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 Visually his blood pressure systolic is 140-160. On admission his CBC is unremarkable except for low hemoglobin at 12.8. INR is 1.3. Sodium 133, creatinine normal 0.7. Liver enzymes not elevated. Gabriela is elevated 0.16, 0.2, 0.19. ProBNP is 1800. Coronavirus not detected. EKG showing sinus tachycardia with a rate of 138, QTC 334. No significant ST-T changes. Chest x-ray showing perihilar and basilar infiltrates presents with mild interval progression suggested by radiologist. When I reviewed the chest x-ray looks like patient has more right lower lobe infiltrate On admission he was started on ceftriaxone and Zithromax as well as heparin drip and aspirin. Versed 500 bolus and continued on normal saline at 1:30 milliliters per hour for about 1 L. Cardiology and pulmonary services were consulted Objective - Vital Signs Vital signs: Vital Signs Temp 96.9 F L 02/27/22 08:50 Pulse 96 02/27/22 10:59 Resp 18 02/27/22 08:50 BP 118/77 02/27/22 08:50 Pulse Ox 91 L 02/27/22 08:50 FiO2 28 02/22/22 11:24 Intake & Output 02/26/22 02/27/22 02/27/22 18:59 06:59 18:59 Intake Total 1750 Output Total 3950 350 500 Balance -2200 -350 -500 Weight 66.9 kg Intake: Intake, IV Titration 200 Amount Piperacillin-Tazobactam 3 200 .375 gm In Sodium Chloride 0.9% 100 ml @ 25 mls/hr IVPB Q8HR [facility] Rx# :[id number] Tube Feeding 1430 Other 120 Output: Urine 3950 350 500 Other: Voiding Method Urinal Urinal - Exam GENERAL: The patient is alert and oriented x3, not in any acute distress. Well developed, well nourished. HEENT: Pupils are round and equally reacting to light. EOMI. No scleral icterus. No conjunctival pallor. Normocephalic, atraumatic. No pharyngeal erythema. No thyromegaly. Status post tracheostomy CARDIOVASCULAR: S1 and S2 present. No murmurs, rubs, or gallops. PULMONARY: Bilateral bibasilar crackles, no wheezing. Congested cough. ABDOMEN: Soft, nontender, LLQ distention, Hypoactive bowel sounds. No palpable organomegaly. Status post PEG tube MUSCULOSKELETAL: No joint swelling or deformity. EXTREMITIES: No cyanosis, clubbing, or pedal edema. NEUROLOGICAL: Gross neurological examination did not reveal any focal deficits. SKIN: No rashes. No petechiae - Labs CBC & Chem 7: 02/27/22 08:27 02/27/22 08:27 Labs: Abnormal Lab Results - Last 24 Hours (Table) 02/27/22 02/27/22 02/27/22 Range/Units 06:14 08:27 08:27 RBC 3.86 L (4.30-5.90) m/uL Hgb 11.0 L (13.0-17.5) gm/dL Hct 36.1 L (39.0-53.0) % MCHC 30.4 L (31.0-37.0) g/dL Lymphocytes # 0.6 L (1.0-4.8) k/uL Carbon Dioxide 35 H (22-30) mmol/L Creatinine 0.63 L (0.66-1.25) mg/dL Glucose 110 H (74-99) mg/dL POC Glucose (mg/dL) 131 H (70-110) mg/dL Microbiology - Last 24 Hours (Table) 02/21/22 22:00 Blood Culture - Preliminary Blood No Growth after 120 hours 02/21/22 22:15 Blood Culture - Preliminary Blood No Growth after 120 hours Assessment and Plan Assessment: Acute hypoxic respiratory failure secondary to bilateral lower lobe pneumonia, more in the right lower lung. Sputum culture showing streptococcus pneumoniae and pseudomonas. Rule out aspiration. He has been weaned off oxygen and maintaining adequate saturations on room air. He continues on IV zosyn which pro monse coverage for both organisms. Bilateral lower lobe pneuomonia with sepsis, blood pressure and heart rate have improved. No longer tachycardic. Troponin leak secondary to above also evidence of right ventricular enlargement on echocardiogram History of brain tumor, with resection and chemoradiotherapy. Follow-up with oncologist as an outpatient History of dysphagia status post PEG tube and enteral feedings outpatient, also he is status post tracheostomy GI prophylaxis IV protonix DVT Prophylaxis Subcu heparin Plan Continue on current antibiotics with pulmonary following closely 2 D echocardiogram completed showing severe right ventricular enlargement Pulmonary, Cardiology following patient closely IV fluids have been decreased to KVO, patient given a dose of IV lasix today Bowel regmine Continue on enteral tube feedings; continuous feedings. Continue duonebs and oxygen support PT/OT following patient Discharge home once medically stable
[2022-02-28] MEDS: SODIUM CHLORIDE 0.9% 1,000 ML IV SCH (15:39)
[2022-02-28 16:36] LABS: Glucose,Whole Blood 115 mg/dL (70-110)
[2022-02-28 23:48] LABS: Glucose,Whole Blood 95 mg/dL (70-110)
[2022-03-01] MEDS: HYDROmorphone 1 MG/ML 1 ML SYRINGE IVP PRN ×5 (04:00→22:49)
[2022-03-01 05:59] LABS: Glucose,Whole Blood 120 mg/dL (70-110)
[2022-03-01] MEDS: IPRATROPIUM-ALBUTEROL 3 ML NEB INHALATION SCH ×4 (07:32→19:47)
[2022-03-01] MEDS: GLYCOPYRROLATE 1 MG TAB PO SCH ×2 (09:16→21:32)
[2022-03-01] MEDS: PIPERACILLIN-TAZOBACTAM 3.375 GM in SODIUM CHLORIDE 0.9% 100 ML IVPB SCH (09:17)
[2022-03-01] MEDS: PANTOPRAZOLE 40 MG/10 ML VIAL IVP SCH (09:18)
[2022-03-01] MEDS: HEPARIN SODIUM,PORCINE/PF 5,000 UNIT/0.5 ML SYRINGE SQ SCH ×2 (09:18→21:32)
[2022-03-01] MEDS ORDERED: FUROSEMIDE 10 MG/ML 2 ML VIAL IV ONE (09:43)
--- NOTE | 2022-03-01 11:45 | P.PN ---
Subjective Progress Note Date: 03/01/22 02/24/2022, the patient is doing well. The sputum as mentioned showed a gram- negative bacillus and the final cultures and sensitivities are still pending. Meanwhile the patient continues to be on IV Zosyn. He still has a congested cough. He is doing adequate pulmonate toileting. Is able to cough up se cretions. Repeat chest x-ray was done and showed stable bilateral pulmonary infiltrates with small effusions. Essentially the findings are unchanged compared to yesterday. Meanwhile, the patient has a white cell count of 6.7 with a hemoglobin 11.3 and a platelet count of 354. Electrodes are all within normal limits. As mentioned, the patient is a Shiley tracheostomy tube in place. He is on 4 L nasal cannula to maintain a saturation above around 94%. He is receiving enteral feeding for nutritional support. The patient on ABPathfinder which is running at the rate of 20 mL an hour. 02/25/2022, the patient is stable. Nevertheless, his cough and not copious amount of foamy, white, rest or secretions is easily able to cough it out through his tracheostomy tube. This is in copious amounts. Cultures within were obtained yesterday showed a polymicrobial growth and this included pseudomonas aeruginosa that was sensitive to Zosyn and the patient also had streptococcal pneumonia which was sensitive to various antibiotics offered. On today's evaluation, the patient is doing well. No symptoms of any significant respiratory distress. He remains on ABPathfinder for enteral feeding and nutritional support. No chest pain. No hemoptysis or pleurisy. Shiley tracheostomy tube remains in place. The patient's white cell count of 5.5 with a hemoglobin of 11.7. Electrodes are normal. Calcium level is at 3.2. Sodium level is at 138. Pulse ox on room air oxygen is 94%. He is afebrile. No significant tachycardia otherwise for now. No nausea. No vomiting. No emesis. No aspiration. On 02/26/2022 patient seen in follow-up on [facility] care unit, he does have a defective cough, he is able to expectorate copious amount of tracheal bronchial secretions, which seems to be blueprint engineer in color and not as thick. Room air pulse ox is 91-92%, he is afebrile. Vital signs have been stable. His sputum culture was positive for Streptococcus pneumonia and pseudomonas aeruginosa he remains on Zosyn for antibiotic coverage. No fever or chills, he is awake and alert, his been self suctioning, and coughing and clearing his secretions. He states normally he takes Robinul at home to continue back on tracheobronchial secretions. And he requested to reordered for him in the hospital. He is tolerating tube feedings, no hemoptysis. CT angiogram of the chest showed no evidence of pulmonary embolism, currently show cardiomegaly with pleural effusions and extensive pulmonary infiltrates. There was some mediastinal adenopathy as well as likely reactive. Congestive heart failure was also a consideration. 02/27/2022, the patient is feeling well. No new complaints. Respiratory secretions and improve that the patient was started on Robinul yesterday.. The patient is still producing some secretions which is able to cough out through his tracheostomy without any major difficulties. He remains on IV Zosyn.He is feeling fatigued. Nevertheless, there is no altered mentation. No lethargy. He is able to suction himself and do adequate pulmonary toileting. The patient's white cell count of 5.3 with a hemoglobin of 11 and his sodium level is at 140. He is a 50 with a creatinine 0.6. No other new complaints or any other significant events overnight. He is tolerating enteral feeding for nutritional support for now. 02/28/2022, the patient is doing well. His secretions gradually continued to improve although still producing oral and secretions from his tracheostomy tube. He remains on IV Zosyn. Repeat chest x-ray was done today showed bilateral pleural effusions that are currently stable. The patient will be given a dose of Lasix. He is afebrile. Hemodynamically stable. He is taking glycopyrrolate improve his aspirin secretions. This has helped. IV fluids are currently at KVO. 03/01/2022, the patient remains on same treatment. His repeat chest x-ray from yesterday showed evidence of atrophy pleural effusions. For that reason, the patient was given a dose of Lasix to which she responded very nicely. Rest or secretions are improving. Afebrile. Continues to be 90 Zosyn. Continues to be on Lovenox. He is active. His continues receiving enteral feeding for nutritional support. Objective - Vital Signs Vital signs: Vital Signs Temp 98.4 F 03/01/22 03:13 Pulse 77 03/01/22 03:13 Resp 16 03/01/22 03:13 BP 93/53 03/01/22 03:13 Pulse Ox 100 03/01/22 03:13 FiO2 21 02/28/22 15:54 Intake & Output 02/28/22 03/01/22 03/01/22 18:59 06:59 18:59 Output Total 1250 Balance -1250 Weight 66.9 kg Output: Urine 1250 Other: Voiding Method Urinal Urinal - Exam GENERAL EXAM: Alert, very pleasant, 21-year-old white comfortable in no apparent distress. HEAD: Normocephalic/atraumatic. EYES: Normal reaction of pupils, equal size. Conjunctiva pink, sclera white. NOSE: Clear with pink turbinates. THROAT: No erythema or exudates. NECK: No masses, no JVD, no thyroid enlargement, no adenopathy. Midline tracheostomy is in place, patient is bringing up large amounts of tracheal bronchial secretions that are white in color CHEST: No chest wall deformity. Symmetrical expansion. LUNGS: Equal air entry with no crackles, wheeze, rhonchi or dullness. CVS: Regular rate and rhythm, normal S1 and S2, no gallops, no murmurs, no rubs ABDOMEN: Soft, nontender. No hepatosplenomegaly, normal bowel sounds, no guarding or rigidity. PEG tube is in place, patient is receiving PEG tube feedings EXTREMITIES: No clubbing, no edema, no cyanosis, 2+ pulses and upper and lower extremities. MUSCULOSKELETAL: Muscle strength and tone normal. SPINE: No scoliosis or deformity SKIN: No rashes CENTRAL NERVOUS SYSTEM: Alert and oriented -3. No focal deficits, tone is normal in all 4 extremities. PSYCHIATRIC: Alert and oriented -3. Appropriate affect. Intact judgment and insight. - Labs CBC & Chem 7: 02/27/22 08:27 02/27/22 08:27 Labs: Abnormal Lab Results - Last 24 Hours (Table) 02/28/22 02/28/22 03/01/22 Range/Units 11:55 16:34 05:55 POC Glucose (mg/dL) 126 H 115 H 120 H (70-110) mg/dL Assessment and Plan Plan: Assessment: Acute hypoxemic respiratory failure secondary to bilateral pneumonia, and the patient has grown a combination of pseudomonas aeruginosa and streptococcal pneumonia on his Gram stain and culture. Mother the patient is currently on IV Zosyn and this is considered to be an adequate antibiotic coverage based on the cultures and sensitivities. Consider aspiration. Consider hospital-acquired pneumonia. Clinically the patient is improving and the patient is able to come off the oxygen with pulse ox on room air is around 94%. The patient is clinically stable. We have noticed some improvement in the respiratory secretions over the past 24 hours as the patient was started on Robinul and is of quite a bit Bilateral pleural effusions Bilateral lower lobe pneumonia, with secondary hypoxic respiratory failure and shortness of breath, improved Troponin leak, secondary to above History of brain cancer, status post surgical excision, and chemoradiation. Previous history of tracheostomy and PEG tube placement. PEG tube for Enteral feeding, Jevity at 20 cc/hour Recent treatment for bronchitis by his medical oncologist. Generalized debility secondary to above Plan: Give the patient additional dose of Lasix 20 mg IV push Continue IV Zosyn The respiratory secretions are improving Condition remains stable and there is ongoing improvement Continue Robinul 1 mg twice daily Patient can continue self suctioning as needed and encourage and assist with pulmonary toileting Continue DuoNeb Continue GI and DVT prophylaxis Enteral feedings to be continued We'll continue to follow
[2022-03-01 12:04] LABS: Glucose,Whole Blood 101 mg/dL (70-110)
--- NOTE | 2022-03-01 13:02 | P.PN ---
Progress Note - Text Progress Note Date: 03/01/22 Patient's PEG site is stable. He is to continue receive local wound care. Abdomen soft. Patient received supportive care.
--- NOTE | 2022-03-01 15:27 | P.PN ---
Subjective Progress Note Date: 02/28/22 21 years old male with no significant past medical history. Presents last night because ofright-sided chest pain, patient states that he has history of brain tumor and he is been done with his chemo and radiotherapy about 20 years ago. He is status post tracheostomy and PEG tube because of that. Patient states that he has a lot of secretion at baseline and history tracheostomy help him with getting an MRI. His oncologist is out of town in [place]. Last month his oncologist prescribed him antibiotic for bronchitis. This time he presents because of hard for him to breathe because it hurts whenev er he takes deep breath on the right lower lung. He has chronic cough but also he is making some yellow phlegm for about a week. Patient has been constipated and did not have a ball for about 2 weeks also has been complaining of from mild bilateral abdominal pain about 5/10 Mindy no bowel movement or passing gas, but he was getting bolus of tube feeding through his PEG tube. He denies headache or dizziness, no weakness or numbness, no urinary complaints however repeat this morning about 600 mL Also he is generally weak. He denies smoking, alcohol or illicit drugs On admission his been febrile however he was tachycardic with heart rate 122 135. 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 Visually his blood pressure systolic is 140-160. On admission his CBC is unremarkable except for low hemoglobin at 12.8. INR is 1.3. Sodium 133, creatinine normal 0.7. Liver enzymes not elevated. Gabriela is elevated 0.16, 0.2, 0.19. ProBNP is 1800. Coronavirus not detected. EKG showing sinus tachycardia with a rate of 138, QTC 334. No significant ST-T changes. Chest x-ray showing perihilar and basilar infiltrates presents with mild interval progression suggested by radiologist. When I reviewed the chest x-ray looks like patient has more right lower lobe infiltrate On admission he was started on ceftriaxone and Zithromax as well as heparin drip and aspirin. Versed 500 bolus and continued on normal saline at 1:30 milliliters per hour for about 1 L. Cardiology and pulmonary services were consulted 02/28/2022 Patient is seen and evaluated sitting up in bed. His secretions gradually continued to improve although still producing oral and secretions from his tracheostomy tube. Patient remains hemodynamically stable Patient remains on IV Zosyn. Repeat chest x-ray was done today showed bilateral pleural effusions that are currently stable. The patient will be given a dose o f Lasix. He is taking glycopyrrolate improve his oral endotracheal secretions. This has helped. IV fluids are currently at KVO. Objective - Vital Signs Vital signs: Vital Signs Temp 98.4 F 02/28/22 03:57 Pulse 94 02/28/22 12:25 Resp 18 02/28/22 03:57 BP 96/51 02/28/22 03:57 Pulse Ox 94 L 02/28/22 03:57 FiO2 28 02/22/22 11:24 Intake & Output 02/27/22 02/28/22 02/28/22 18:59 06:59 18:59 Intake Total 1440 Output Total 335 891 6218 Balance -500 840 -1250 Weight 66.9 kg Intake: Tube Feeding 1440 Output: Urine 679 950 0368 Other: Voiding Method Urinal # Voids 1 - Exam GENERAL: The patient is alert and oriented x3, not in any acute distress. Well developed, well nourished. HEENT: Pupils are round and equally reacting to light. EOMI. No scleral icterus. No conjunctival pallor. Normocephalic, atraumatic. No pharyngeal erythema. No thyromegaly. Status post tracheostomy CARDIOVASCULAR: S1 and S2 present. No murmurs, rubs, or gallops. PULMONARY: Bilateral bibasilar crackles, no wheezing. Congested cough. ABDOMEN: Soft, nontender, LLQ distention, Hypoactive bowel sounds. No palpable organomegaly. Status post PEG tube MUSCULOSKELETAL: No joint swelling or deformity. EXTREMITIES: No cyanosis, clubbing, or pedal edema. NEUROLOGICAL: Gross neurological examination did not reveal any focal deficits. SKIN: No rashes. No petechiae - Labs CBC & Chem 7: 02/27/22 08:27 02/27/22 08:27 Labs: Abnormal Lab Results - Last 24 Hours (Table) 02/27/22 02/27/22 02/28/22 Range/Units 18:10 20:14 00:55 POC Glucose (mg/dL) 114 H 164 H 146 H (70-110) mg/dL 02/28/22 02/28/22 Range/Units 06:51 11:55 POC Glucose (mg/dL) 112 H 126 H (70-110) mg/dL Microbiology - Last 24 Hours (Table) 02/21/22 22:15 Blood Culture - Final Blood No Growth after 144 hours 02/21/22 22:00 Blood Culture - Final Blood No Growth after 144 hours Assessment and Plan Assessment: Acute hypoxic respiratory failure secondary to bilateral lower lobe pneumonia, more in the right lower lung. Sputum culture showing streptococcus pneumoniae and pseudomonas. Rule out aspiration. He has been weaned off oxygen and maintaining adequate saturations on room air. He continues on IV zosyn which provides coverage for both organisms. Bilateral lower lobe pneuomonia with sepsis, blood pressure and heart rate have improved. No longer tachycardic. Troponin leak secondary to above also evidence of right ventricular enlargement on echocardiogram History of brain tumor, with resection and chemoradiotherapy. Follow-up with oncologist as an outpatient History of dysphagia status post PEG tube and enteral feedings outpatient, also he is status post tracheostomy GI prophylaxis IV protonix DVT Prophylaxis Subcu heparin Plan Continue on current antibiotics with pulmonary following closely 2 D echocardiogram completed showing severe right ventricular enlargement Pulmonary, Cardiology following patient closely IV fluids have been decreased to KVO, patient given a dose of IV lasix today Bowel regmine Continue on enteral tube feedings; continuous feedings. Continue duonebs and oxygen support PT/OT following patient Discharge home once medically stable
--- NOTE | 2022-03-01 15:31 | P.PN ---
Subjective Progress Note Date: 03/01/22 Principal diagnosis: Acute hypoxemic respiratory failure secondary to bilateral pneumonia Bilateral pleural effusions Troponin leak 21 years old male with no significant past medical history. Presents last night because ofright-sided chest pain, patient states that he has history of brain tumor and he is been done with his chemo and radiotherapy about 20 years ago. He is status post tracheostomy and PEG tube because of that. Patient states that he has a lot of secretion at baseline and history tracheostomy help him with getting an MRI. His oncologist is out of town in [place]. Last month his oncologist prescribed him antibiotic for bronchitis. This time he presents because of hard for him to breathe because it hurts whenever he takes deep breath on the right lower lung. He has chronic cough but also he is making some yellow phlegm for about a week. Patient has been constipated and did not have a ball for about 2 weeks also has been complaining of from mild bilateral abdominal pain about 5/10 Mindy no bowel movement or passing gas, but he was getting bolus of tube feeding through his PEG tube. He denies headache or dizziness, no weakness or numbness, no urinary complaints however repeat this morning about 600 mL Also he is generally weak. He denies smoking, alcohol or illicit drugs On admission his been febrile however he was tachycardic with heart rate 122 135. 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 Visually his blood pressure systolic is 140-160. On admission his CBC is unremarkable except for low hemoglobin at 12.8. INR is 1.3. Sodium 133, creatinine normal 0.7. Liver enzymes not elevated. Gabriela is elevated 0.16, 0.2, 0.19. ProBNP is 1800. Coronavirus not detected. EKG showing sinus tachycardia with a rate of 138, QTC 334. No significant ST-T changes. Chest x-ray showing perihilar and basilar infiltrates presents with mild interval progression suggested by radiologist. When I reviewed the chest x-ray looks like patient has more right lower lobe infiltrate On admission he was started on ceftriaxone and Zithromax as well as heparin drip and aspirin. Versed 500 bolus and continued on normal saline at 1:30 milliliters per hour for about 1 L. Cardiology and pulmonary services were consulted 02/28/2022 Patient is seen and evaluated sitting up in bed. His secretions gradually continued to improve although still producing oral and secretions from his tracheostomy tube. Patient remains hemodynamically stable Patient remains on IV Zosyn. Repeat chest x-ray was done today showed bilateral pleural effusions that are currently stable. The patient will be given a dose of Lasix. He is taking glycopyrrolate improve his oral endotracheal secretions. This has helped. IV fluids are currently at KVO. 03/01/2022 Patient is seen and evaluated resting comfortably in bed; vital signs are reviewed and remained stable with temperature of 98.4, pulse 77, respirations 16 and blood pressure 93/53 Checks x-ray from yesterday reveals bilateral pleural effusions; patient received a dose of IV Lasix with significant diuresis; patient will receive another dose of Lasix 1; continue with IV Zosyn for bilateral pneumonia; Continue Robinul 1 mg twice daily Patient can continue self suctioning as needed and encourage and assist with pulmonary toileting Continue DuoNeb nebulizer treatments Objective - Vital Signs Vital signs: Vital Signs Temp 98.4 F 03/01/22 03:13 Pulse 77 03/01/22 03:13 Resp 16 03/01/22 03:13 BP 93/53 03/01/22 03:13 Pulse Ox 100 03/01/22 03:13 FiO2 21 02/28/22 15:54 Intake & Output 02/28/22 03/01/22 03/01/22 18:59 06:59 18:59 Output Total 1250 780 Balance -1250 -780 Weight 66.9 kg Output: Urine 1250 780 Other: Voiding Method Urinal Urinal - Exam GENERAL: The patient is alert and oriented x3, not in any acute distress. Well developed, well nourished. HEENT: Pupils are round and equally reacting to light. EOMI. No scleral icterus. No conjunctival pallor. Normocephalic, atraumatic. No pharyngeal erythema. No thyromegaly. Status post tracheostomy CARDIOVASCULAR: S1 and S2 present. No murmurs, rubs, or gallops. PULMONARY: Bilateral bibasilar crackles, no wheezing. Congested cough. ABDOMEN: Soft, nontender, LLQ distention, Hypoactive bowel sounds. No palpable organomegaly. Status post PEG tube MUSCULOSKELETAL: No joint swelling or deformity. EXTREMITIES: No cyanosis, clubbing, or pedal edema. NEUROLOGICAL: Gross neurological examination did not reveal any focal deficits. SKIN: No rashes. No petechiae - Labs CBC & Chem 7: 02/27/22 08:27 02/27/22 08:27 Labs: Abnormal Lab Results - Last 24 Hours (Table) 02/28/22 03/01/22 Range/Units 16:34 05:55 POC Glucose (mg/dL) 115 H 120 H (70-110) mg/dL Assessment and Plan Assessment: Acute hypoxic respiratory failure secondary to bilateral lower lobe pneumonia, more in the right lower lung. Sputum culture showing streptococcus pneumoniae and pseudomonas. Rule out aspiration. He has been weaned off oxygen and maintaining adequate saturations on room air. He continues on IV zosyn which provides coverage for both organisms. Bilateral lower lobe pneuomonia with sepsis, blood pressure and heart rate have improved. No longer tachycardic. Troponin leak secondary to above also evidence of right ventricular enlargement on echocardiogram History of brain tumor, with resection and chemoradiotherapy. Follow-up with oncologist as an outpatient History of dysphagia status post PEG tube and enteral feedings outpatient, also he is status post tracheostomy GI prophylaxis IV protonix DVT Prophylaxis Subcu heparin Plan Continue on current antibiotics with pulmonary following closely 2 D echocardiogram completed showing severe right ventricular enlargement Pulmonary, Cardiology following patient closely IV fluids have been decreased to KVO, patient given a dose of IV lasix today Bowel regmine Continue on enteral tube feedings; continuous feedings. Continue duonebs and oxygen support PT/OT following patient Discharge home once medically stable
[2022-03-01] MEDS: SODIUM CHLORIDE 0.9% 1,000 ML IV SCH (16:19)
[2022-03-01 17:16] LABS: Glucose,Whole Blood 87 mg/dL (70-110)
[2022-03-02 00:04] LABS: Glucose,Whole Blood 160 mg/dL (70-110)
[2022-03-02] MEDS: HYDROmorphone 1 MG/ML 1 ML SYRINGE IVP PRN ×4 (02:40→17:01)
[2022-03-02 06:18] LABS: Glucose,Whole Blood 92 mg/dL (70-110)
[2022-03-02] MEDS: IPRATROPIUM-ALBUTEROL 3 ML NEB INHALATION SCH ×4 (07:15→20:40)
[2022-03-02 07:51] LABS: Basophils % (A) 1 %; Eosinophils # (A) 0.1 k/uL (0-0.7); Eosinophils % (A) 2 %; HCT 37.3 % (39.0-53.0); HGB 11.1 gm/dL (13.0-17.5); Hypochromasia Slight; Lymphocytes % (A) 27 %; MCH 27.9 pg (25.0-35.0); MCHC 29.8 g/dL (31.0-37.0); MCV 93.6 fL (80.0-100.0); Mean Platelet Volume 7.7; Monocytes # (A) 0.2 k/uL (0-1.0); Monocytes % (A) 6 %; Neutrophils # (A) 2.2 k/uL (1.3-7.7); Neutrophils % (A) 61 %; Platelet Count 394 k/uL (150-450); RBC 3.98 m/uL (4.30-5.90); RDW 14.2 % (11.5-15.5); WBC 3.6 k/uL (3.8-10.6)
[2022-03-02 08:08] LABS: African American GFR (CKD) >90 (>60 ml/min/1.73 sqM); Blood Urea Nitrogen 25 mg/dL (9-20); Calcium 9.4 mg/dL (8.4-10.2); Carbon Dioxide 35 mmol/L (22-30); Chloride 99 mmol/L (98-107); Glucose 76 mg/dL (74-99); Non-African American GFR(CKD) >90 (>60 ml/min/1.73 sqM); Potassium 4.6 mmol/L (3.5-5.1)
[2022-03-02 08:21] LABS: Anion Gap 6 mmol/L; Sodium 140 mmol/L (137-145)
[2022-03-02] MEDS: HEPARIN SODIUM,PORCINE/PF 5,000 UNIT/0.5 ML SYRINGE SQ SCH ×2 (09:00→21:19)
[2022-03-02] MEDS: PANTOPRAZOLE 40 MG/10 ML VIAL IVP SCH (09:00)
[2022-03-02] MEDS: GLYCOPYRROLATE 1 MG TAB PO SCH ×3 (09:02→21:19)
[2022-03-02 12:11] LABS: Glucose,Whole Blood 115 mg/dL (70-110)
--- NOTE | 2022-03-02 13:30 | P.PN ---
Subjective Progress Note Date: 03/02/22 Principal diagnosis: Bilateral community-acquired pneumonia 02/27/2022, the patient is feeling well. No new complaints. Respiratory secretions and improve that the patient was started on Robinul yesterday.. The patient is still producing some secretions which is able to cough out through his tracheostomy without any major difficulties. He remains on IV Zosyn.He is feeling fatigued. Nevertheless, there is no altered mentation. No lethargy. He is able to suction himself and do adequate pulmonary toileting. The patient's white cell count of 5.3 with a hemoglobin of 11 and his sodium level is at 140. He is a 50 with a creatinine 0.6. No other new complaints or any o ther significant events overnight. He is tolerating enteral feeding for nutritional support for now. 02/28/2022, the patient is doing well. His secretions gradually continued to improve although still producing oral and secretions from his tracheostomy tube. He remains on IV Zosyn. Repeat chest x-ray was done today showed bilateral pleural effusions that are currently stable. The patient will be given a dose of Lasix. He is afebrile. Hemodynamically stable. He is taking glycopyrrolate improve his aspirin secretions. This has helped. IV fluids are currently at KVO. 03/01/2022, the patient remains on same treatment. His repeat chest x-ray from yesterday showed evidence of atrophy pleural effusions. For that reason, the patient was given a dose of Lasix to which she responded very nicely. Rest or secretions are improving. Afebrile. Continues to be 90 Zosyn. Continues to be on Lovenox. He is active. His continues receiving enteral feeding for nutritional support. Reevaluated today on 03/02/22, patient seems to be quite comfortable, not in any distress, remains on Zosyn, and I will renew it for few more days. Patient continues to have intermittent cough, productive sputum, but does not seem to be in distress. Tracheostomy seems to be intact. WBC count is 3.6 hemoglobin is 11 and let us are normal renal profile is normal Objective - Vital Signs Vital signs: Vital Signs Temp 98.1 F 03/02/22 12:00 Pulse 77 03/02/22 12:00 Resp 16 03/02/22 12:00 BP 93/53 03/02/22 12:00 Pulse Ox 98 03/02/22 12:00 FiO2 21 02/28/22 15:54 Intake & Output 03/01/22 03/02/22 03/02/22 18:59 06:59 18:59 Intake Total 3240 Output Total 1080 600 Balance 2160 -600 Intake: Tube Feeding 3240 Output: Urine 1080 600 Other: Voiding Method Urinal Urinal Urinal - Exam Physical Exam: Revealed a 21-year-old male in no distress, tracheostomy seems to be intact, on room air with O2 saturation 98%. Head: Atraumatic, normocephalic. HEENT:[Neck is supple.] [No neck masses.] [No thyromegaly.] [No JVD.] Chest: [Rhonchi noted bilaterally more so on forced expiratory maneuver Cardiac Exam: [Normal S1 and S2, no S3 gallop, no murmur.] Abdomen: [Soft, nontender, no megaly, no rebound, no guarding, normal bowel sounds.] Extremities: [No clubbing, no edema, no cyanosis.] Neurological Exam: [No focal neurologic deficit.] Alert oriented 3 no gross focal deficits. Psychiatric: Normal mood affect and normal mental status examination. Skin: No rashes. - Labs CBC & Chem 7: 03/02/22 06:55 03/02/22 06:55 Labs: Abnormal Lab Results - Last 24 Hours (Table) 03/02/22 03/02/22 03/02/22 Range/Units 00:02 06:55 06:55 WBC 3.6 L (3.8-10.6) k/uL RBC 3.98 L (4.30-5.90) m/uL Hgb 11.1 L (13.0-17.5) gm/dL Hct 37.3 L (39.0-53.0) % MCHC 29.8 L (31.0-37.0) g/dL Carbon Dioxide 35 H (22-30) mmol/L BUN 25 H (9-20) mg/dL POC Glucose (mg/dL) 160 H (70-110) mg/dL 03/02/22 Range/Units 12:09 WBC (3.8-10.6) k/uL RBC (4.30-5.90) m/uL Hgb (13.0-17.5) gm/dL Hct (39.0-53.0) % MCHC (31.0-37.0) g/dL Carbon Dioxide (22-30) mmol/L BUN (9-20) mg/dL POC Glucose (mg/dL) 115 H (70-110) mg/dL Assessment and Plan Assessment: Impression: Acute hypoxic respiratory failure secondary to bilateral pneumonia secondary to pseudomonas aeruginosa and Streptococcus pneumonia. Remains on Zosyn. Bilateral pleural effusions Troponin leak History of brain cancer status post surgical excision and chemoradiation History of tracheostomy and PEG tube placement Recommendation: Continue antibiotics Continue Lasix Suctioning of secretions. Continue DuoNeb. Continue GI and DVT prophylaxis Enteral feedings via PEG tube. We'll continue to follow possibly discharge home in the next couple of days Time with Patient: Less than 30
[2022-03-02 16:50] LABS: Glucose,Whole Blood 80 mg/dL (70-110)
[2022-03-02] MEDS: PIPERACILLIN-TAZOBACTAM 3.375 GM in SODIUM CHLORIDE 0.9% 100 ML IVPB SCH (17:05)
[2022-03-02] MEDS: SODIUM CHLORIDE 0.9% 1,000 ML IV SCH (17:07)
[2022-03-02] MEDS ORDERED: HYDROcodone/APAP 5-325MG 1 EACH TAB PO PRN (19:35)
--- NOTE | 2022-03-02 19:39 | P.PN ---
Subjective Progress Note Date: 03/02/22 This is a pleasant 21 years old male with no significant past medical history. Presents last night because ofright-sided chest pain, patient states that he has history of brain tumor and he is been done with his chemo and radiotherapy about 20 years ago. He is status post tracheostomy and PEG tube because of that. Patient states that he has a lot of secretion at baseline and history tracheostomy help him with getting an MRI. His oncologist is out of town in [place]. Last month his oncologist prescribed him antibiotic for bronchitis. This time he presents because of hard for him to breathe because it hurts whenever he takes deep breath on the right lower lung. He has chronic cough but also he is making some yellow phlegm for about a week. Patient has been constipated and did not have a ball for about 2 weeks also has been complaining of from mild bilateral abdominal pain about 5/10 Mindy no bowel movement or passing gas, but he was getting bolus of tube feeding through his PEG tube. He denies headache or dizziness, no weakness or numbness, no urinary complaints however repeat this morning about 600 mL Also he is generally weak. He denies smoking, alcohol or illicit drugs On admission his been febrile however he was tachycardic with heart rate 122 135. Also he is tachypneic and short of breath with a rate of 20, blood pressure is on the low side, last one bulb farmworker was 95/56. Visually his blood pressure systolic is 140-160. On admission his CBC is unremarkable except for low hemoglobin at 12.8. INR is 1.3. Sodium 133, creatinine normal 0.7. Liver enzymes not elevated. Gabriela is elevated 0.16, 0.2, 0.19. ProBNP is 1800. Coronavirus not detected. EKG showing sinus tachycardia with a rate of 138, QTC 334. No significant ST-T changes. Chest x-ray showing perihilar and basilar infiltrates presents with mild interval progression suggested by radiologist. When I reviewed the chest x-ray looks like patient has more right lower lobe infiltrate On admission he was started on ceftriaxone and Zithromax as well as heparin drip and aspirin. Versed 500 bolus and continued on normal saline at 1:30 milliliters per hour for about 1 L. Cardiology and pulmonary services were consulted 02/23/2022 Patient evaluated today sitting up in bed. He feels week. Continues to report increased secretions. Sputum culture is currently showing gram negative bacillus. prelim blood cultures are negative. He is currently maintained on IV zosyn and is also being hydrated with IV normal saline. Echocardiogram is currently pending. Pulmonary, cardiology are following patient closely. Patient also states no BM for he thinks about 2 weeks, tube feeds are infusing through PEG tube at 20 mls per hour with goal of 85 mls per hour with jevity 1.5. Nursing reports no residuals with tube feed, he does have hypoactive bowel sounds. KUB done on admission shows non obstructive bowel gas pattern. Patient is on narcotics for pain management which can be constipating. Will add bowel regimine. He continues on updrafts. procalcitonin level 0.51. 02/24/2022 Follow up chest xray showing bilateral lower lobe pneumonia and small effusion with is stable from yesterday. Patient continues on IV zosyn. Sputum is showing pseudomonas and streptococcus pneumoniae. Patient is being followed closely by pulmonary services. Patient had 2 loose BMs throughout the night. Continues with increased secretions, fatigue. Echocardiogram showing EF 55%, Severe right ventricular enlargement, trace mitral regurgitation, trace tricuspid regurgitation, small pericardial effusion. Consider BETHANIE or cardiac MRI for further eval of right ventricular enlargement. Cardiology is following patient closely. White count today 6.7, hgb 11.3, sodium 139, potassium 3.9, BUN 3, creatinine 0.54. blood glucose in the 120s. Patient remains afebrile, heart rate is in the 120s this morning. Blood pressure 119/79, 92% pulse oximetry. He is on 4 to 5 L nasal cannula. 02/26/2022 Patient evaluated today sitting up in bed. Overall he states he is feeling better. Cultures finalized and he continues on IV zosyn. Pulmonary is following patient closely as well as cardiology. Patient had chest CT angiography completed yesterday as D-Dimer elevated at 5.83. CTA shows no evidence for pulmonary embolism. There is cardiomegaly with pleural effusions and extensive pulmonary infiltrates. Mediastinal adenopathy that is most likely reactive. This could be significant RDS versus congestive heart failure. Noted that proBNP was 1800 on admission, patient has been receiving IV fluids. General surgery did evaluated PEG tube and it is okay to use for continuous enteral feedings, patient is not tolerating bolus feedings which possibly could be causing some aspiration. Patient does have crackles in his right base, and fluids have been decreased. IV lasix x 1 has been ordered from pulmonary. 03/01/2022 Patient today sitting up in bed. Reports weakness. He has cough with sputum production reports overall improvement from admission. Pulmonary following. Patient continues on IV zosyn and rubinol. Labs today showing hgb 11.1, stable, sodium 140, potassium 4.6, BUN 25, creatinine 0.77. Hemodynamically stable today. He continues on PEG tube feedings continuous and is at goal. Continue colace daily. AM chest xray ordered. Review of Systems Constitutional: Reports fatigue. denied any fever. Cardio vascular: denied any chest pain, palpitations Gastrointestinal: denied any nausea, vomiting, diarrhea. Pulmonary: Denied any shortness of breath. Reports cough with sputum. Neurologic denied any new focal deficits All inpatient medications were reviewed and appropriate changes in these medications as dictated in the interval history and assessment and plan. Physical examination GENERAL: The patient is alert and oriented x3, not in any acute distress. Well developed, well nourished. HEENT: Pupils are round and equally reacting to light. EOMI. No scleral icterus. No conjunctival pallor. Normocephalic, atraumatic. No pharyngeal erythema. No thyromegaly. Status post tracheostomy CARDIOVASCULAR: S1 and S2 present. No murmurs, rubs, or gallops. PULMONARY: Lungs are clear, diminished. ABDOMEN: Soft, nontender, non distended., normoactive bowel sounds. No palpable organomegaly. Status post PEG tube MUSCULOSKELETAL: No joint swelling or deformity. EXTREMITIES: No cyanosis, clubbing, or pedal edema. NEUROLOGICAL: Gross neurological examination did not reveal any focal deficits. SKIN: No rashes. No petechiae Assessment and Plan Assessment Acute hypoxic respiratory failure secondary to bilateral lower lobe pneumonia, more in the right lower lung. Sputum culture showing streptococcus pneumoniae and pseudomonas. Rule out aspiration. He has been weaned off oxygen and maintaining adequate saturations on room air. He continues on IV zosyn which provides coverage for both organisms. Bilateral lower lobe pneuomonia with sepsis, blood pressure and heart rate have improved. No longer tachycardic. Troponin leak secondary to above also evidence of right ventricular enlargement on echocardiogram History of brain tumor, with resection and chemoradiotherapy. Follow-up with oncologist as an outpatient History of dysphagia status post PEG tube and enteral feedings outpatient, also he is status post tracheostomy GI prophylaxis IV protonix DVT Prophylaxis Subcu heparin Plan Continue on current antibiotics with pulmonary following closely 2 D echocardiogram completed showing severe right ventricular enlargement Pulmonary, Cardiology following patient closely Bowel regmine Continue on enteral tube feedings; continuous feedings. Continue duonebs and oxygen support PT/OT following patient Discharge home once medically stable possibly in the next 24 to 48 hours. The impression and plan of care has been dictated by Leti Shahid Nurse Practitioner as directed. Dr. Evan MD I have performed a history and physical examination and medical decision making of this patient, discussed the same with the dictator, and agree with the dictators assessment and plan as written, documented as a scribe. Based on total visit time, I have performed more than 50% of this visit. Objective - Vital Signs Vital signs: Vital Signs Temp 98.1 F 03/02/22 12:00 Pulse 77 03/02/22 12:00 Resp 16 03/02/22 12:00 BP 93/53 03/02/22 12:00 Pulse Ox 98 03/02/22 12:00 FiO2 21 02/28/22 15:54 Intake & Output 03/01/22 03/02/22 03/02/22 18:59 06:59 18:59 Intake Total 3240 Output Total 1080 600 Balance 2160 -600 Intake: Tube Feeding 3240 Output: Urine 1080 600 Other: Voiding Method Urinal Urinal Urinal - Labs CBC & Chem 7: 03/02/22 06:55 03/02/22 06:55 Labs: Abnormal Lab Results - Last 24 Hours (Table) 03/02/22 03/02/22 03/02/22 Range/Units 00:02 06:55 06:55 WBC 3.6 L (3.8-10.6) k/uL RBC 3.98 L (4.30-5.90) m/uL Hgb 11.1 L (13.0-17.5) gm/dL Hct 37.3 L (39.0-53.0) % MCHC 29.8 L (31.0-37.0) g/dL Carbon Dioxide 35 H (22-30) mmol/L BUN 25 H (9-20) mg/dL POC Glucose (mg/dL) 160 H (70-110) mg/dL 03/02/22 Range/Units 12:09 WBC (3.8-10.6) k/uL RBC (4.30-5.90) m/uL Hgb (13.0-17.5) gm/dL Hct (39.0-53.0) % MCHC (31.0-37.0) g/dL Carbon Dioxide (22-30) mmol/L BUN (9-20) mg/dL POC Glucose (mg/dL) 115 H (70-110) mg/dL Assessment and Plan Time with Patient: Less than 30
[2022-03-03] MEDS: PIPERACILLIN-TAZOBACTAM 3.375 GM in SODIUM CHLORIDE 0.9% 100 ML IVPB SCH ×3 (00:44→18:14)
[2022-03-03 00:57] LABS: Glucose,Whole Blood 94 mg/dL (70-110)
[2022-03-03 06:13] VITALS: RESP 16
[2022-03-03 07:04] LABS: Glucose,Whole Blood 103 mg/dL (70-110)
--- NOTE | 2022-03-03 07:06 | XR ---
EXAMINATION TYPE: XR chest 1V portable DATE OF EXAM: 03/03/2022 COMPARISON: 02/28/2022 HISTORY: Cough TECHNIQUE: Single frontal view of the chest is obtained. FINDINGS: Tracheostomy tube is seen is bilateral lower lobe infiltrates effusion. Improved from prio r exam. No interstitial edema or pneumothorax. Heart size normal. IMPRESSION: Bilateral lower lobe infiltrate and small effusion improved.
[2022-03-03] MEDS: IPRATROPIUM-ALBUTEROL 3 ML NEB INHALATION SCH ×3 (08:00→15:28)
[2022-03-03] MEDS ORDERED: DOCUSATE ORAL SOLN 100 MG/10 ML CUP PO SCH (09:00)
[2022-03-03] MEDS: PANTOPRAZOLE 40 MG/10 ML VIAL IVP SCH (09:16)
[2022-03-03] MEDS: HEPARIN SODIUM,PORCINE/PF 5,000 UNIT/0.5 ML SYRINGE SQ SCH (09:18)
[2022-03-03 09:59] VITALS: TEMP 98.3
[2022-03-03 11:53] LABS: Glucose,Whole Blood 90 mg/dL (70-110)
[2022-03-03 12:04] VITALS: BP 119/78
--- NOTE | 2022-03-03 12:31 | P.PN ---
Progress Note - Text Progress Note Date: 03/03/22 Patient's PEG tube site is stable. There are no new concerns. He'll continue receive supportive care.
--- NOTE | 2022-03-03 12:41 | P.PN ---
Subjective Progress Note Date: 03/03/22 Principal diagnosis: Bilateral community-acquired pneumonia 02/27/2022, the patient is feeling well. No new complaints. Respiratory secretions and improve that the patient was started on Robinul yesterday.. The patient is still producing some secretions which is able to cough out through his tracheostomy without any major difficulties. He remains on IV Zosyn.He is feeling fatigued. Nevertheless, there is no altered mentation. No lethargy. He is able to suction himself and do adequate pulmonary toileting. The patient's white cell count of 5.3 with a hemoglobin of 11 and his sodium level is at 140. He is a 50 with a creatinine 0.6. No other new complaints or any o ther significant events overnight. He is tolerating enteral feeding for nutritional support for now. 02/28/2022, the patient is doing well. His secretions gradually continued to improve although still producing oral and secretions from his tracheostomy tube. He remains on IV Zosyn. Repeat chest x-ray was done today showed bilateral pleural effusions that are currently stable. The patient will be given a dose of Lasix. He is afebrile. Hemodynamically stable. He is taking glycopyrrolate improve his aspirin secretions. This has helped. IV fluids are currently at KVO. 03/01/2022, the patient remains on same treatment. His repeat chest x-ray from yesterday showed evidence of atrophy pleural effusions. For that reason, the patient was given a dose of Lasix to which she responded very nicely. Rest or secretions are improving. Afebrile. Continues to be 90 Zosyn. Continues to be on Lovenox. He is active. His continues receiving enteral feeding for nutritional support. Reevaluated today on 03/02/22, patient seems to be quite comfortable, not in any distress, remains on Zosyn, and I will renew it for few more days. Patient continues to have intermittent cough, productive sputum, but does not seem to be in distress. Tracheostomy seems to be intact. WBC count is 3.6 hemoglobin is 11 and let us are normal renal profile is normal Reevaluated today on 03/03/22, patient is very comfortable today, not in any distress, chest x-ray showed dramatic improvement since admission, patient received a total of 9 days of IV antibiotics,Patient is being treated for pseudomonas aeruginosa pneumonia and Streptococcus pneumonia, I believe the patient could be considered for discharge home, and stopping IV antibiotics, there is no need for even oral antibiotics. Patient is afebrile, no evidence of leukocytosis, and his chest x-ray showed significant improvement. Objective - Vital Signs Vital signs: Vital Signs Temp 98.3 F 03/03/22 08:00 Pulse 121 H 03/03/22 12:00 Resp 16 03/03/22 12:00 BP 119/78 03/03/22 12:00 Pulse Ox 91 L 03/03/22 12:00 FiO2 21 02/28/22 15:54 Intake & Output 03/02/22 03/03/22 03/03/22 18:59 06:59 18:59 Output Total 600 950 Balance -600 -950 Weight 60.5 kg Output: Urine 600 950 Other: Voiding Method Urinal Urinal - Exam Physical Exam: Revealed a 21-year-old male in no distress, tracheostomy seems to be intact, on room air with O2 saturation 98%. Head: Atraumatic, normocephalic. HEENT:[Neck is supple.] [No neck masses.] [No thyromegaly.] [No JVD.] Chest: [Diminished breath sounds at the bases no crackles or rhonchi or wheezes Cardiac Exam: [Normal S1 and S2, no S3 gallop, no murmur.] Abdomen: [Soft, nontender, no megaly, no rebound, no guarding, normal bowel sounds.] Extremities: [No clubbing, no edema, no cyanosis.] Neurological Exam: [No focal neurologic deficit.] Alert oriented 3 no gross focal deficits. Psychiatric: Normal mood affect and normal mental status examination. Skin: No rashes. - Labs CBC & Chem 7: 03/02/22 06:55 03/02/22 06:55 Assessment and Plan Assessment: Impression: Acute hypoxic respiratory failure secondary to bilateral pneumonia secondary to pseudomonas aeruginosa and Streptococcus pneumonia. Remains on Zosyn. Bilateral pleural effusions Troponin leak History of brain cancer status post surgical excision and chemoradiation History of tracheostomy and PEG tube placement Recommendation: Consider discharging the patient home Couldn't stop antibiotics in the patient is to be discharged home today. Continue Lasix Suctioning of secretions. Continue DuoNeb. Continue GI and DVT prophylaxis Enteral feedings via PEG tube. Cleared from our perspective to be discharged home today. Time with Patient: Less than 30
[2022-03-03] MEDS: GLYCOPYRROLATE 1 MG TAB PO SCH (15:33)
[2022-03-03 17:35] LABS: Amorphous Sediment,Urine Rare /hpf; Appearance,Urine Turbid (Clear); Bilirubin,Urine Negative (Negative); Blood,Urine Negative (Negative); Color,Urine Light Yellow; Glucose,Urine (UA) Negative (Negative); Ketones,Urine Negative (Negative); Leukocyte Esterase,Urine Negative (Negative); Nitrite,Urine Negative (Negative); Protein,Urine Negative (Negative); RBC,Urine <1 /hpf (0-5); Specific Gravity,Urine 1.013 (1.001-1.035); Urobilinogen,Urine <2.0 mg/dL (<2.0)
[2022-03-03] MEDS: SODIUM CHLORIDE 0.9% 1,000 ML IV SCH (18:14)
[2022-03-03 18:20] VITALS: PULSE 96
--- NOTE | 2022-03-04 15:56 | P.DS ---
Providers Date of admission: 02/21/22 22:51 Attending physician: Emilee Rodriguez Consults: 02/21/22 22:51 Consult Physician Routine Consulting Provider: Abdiel Patel Consult Reason/Comments: Bilateral pneumonia Do you want consulting provider notified?: Yes, Notify in am 02/25/22 13:08 Consult Physician Routine Consulting Provider: John Paul Casillas Consult Reason/Comments: tube feeding, possible malfunctioning peg Do you want consulting provider notified?: Yes Primary care physician: Physician Nonstaff Hospital Course: Diagnosis Acute hypoxic respiratory failure from bilateral lower lobe pneumonia Sputum culture showing streptococcus pneumoniae and pseudomonas. Bilateral lower lobe pneuomonia with sepsis, blood pressure and heart rate have improved. No longer tachycardic. Troponin leak secondary to above also evidence of right ventricular enlargement on echocardiogram History of brain tumor, with resection and chemoradiotherapy. History of dysphagia status post PEG tube and enteral feedings outpatient, also he is status post tracheostomy Discharge disposition Patient is stable for discharge, he has overall guarded prognosis. Pulmonary, infectious disease, and cardiology have cleared patient for discharge. He has completed antibiotic therapy and will not require antibiotics on discharge. Jevity 1.5, continue BOLUS d/t leaking PEG tube with continous feeding. Bolus 180 mL x 12 feeding daily per pt's wishes. Continue with free water flushes, 120 mL 8 times daily Hospital course This is a pleasant 21 years old male with medical history of brain tumor status post chemoradiation as a child. He is post tracheostomy and PEG tube because of that. He presents to the with right sided chest pain. Patient states that he has a lot of secretion at baseline and history tracheostomy. His oncologist is out of town in [place]. Last month his oncologist prescribed him antibiotic for bronchitis. This time he presents because of hard for him to breathe because it hurts whene devon he takes deep breath on the right lower lung. He has chronic cough but also he is making some yellow phlegm for about a week. Patient has been constipated and did not have a BM for about 2 weeks also has been complaining of from mild bilateral abdominal pain about 5/10 no bowel movement or passing gas, but he was getting bolus of tube feeding through his PEG tube. He denies headache or dizziness, no weakness or numbness, no urinary complaints however repeat this morning about 600 mL Also he is generally weak. He denies smoking, alcohol or illicit drugs On admission his been febrile however he was tachycardic with heart rate 122 135. Also he is tachypneic and short of breath with a rate of 20, blood pressure is on the low side, last one early childhood worker was 95/56. Visually his blood pressure systolic is 140-160. On admission his CBC is unremarkable except for low hemoglobin at 12.8. INR is 1.3. Sodium 133, creatinine normal 0.7. Liver enzymes not elevated. Gabriela is elevated 0.16, 0.2, 0.19. ProBNP is 1800. Coronavirus not detected. EKG showing sinus tachycardia with a rate of 138, QTC 334. No significant ST-T changes. Chest x-ray showing perihilar and basilar infiltrates presents with mild interval progression suggested by radiologist. On admission he was started on ceftriaxone and Zithromax as well as heparin drip and aspirin. He received a fluid bolus Cardiology and pulmonary services were consulted Echocardiogram done showing normal left ventricular EF of 55%, severe right ventricular enlargement proximal 0.6 times diameter of the left ventricle mildly decreased right ventricular function. There is no significant pulmonary hypertension and no significant shunting noted however consider right heart cath, BETHANIE or cardiac MRI for further workup of right ventricular dilation if clinically warranted. There is trace mitral regurgitation, trace tricuspid regurgitation, small pericardial effusion. Patient had CTA chest done showing cardiomegaly with pleural effusions and extensive pulmonary infiltrates. There is mediastinal adenopathy that is likely reactive. This could be RDS vs. CHF. Patient received a dose of IV Lasix on February 28 and also a repeat dose of IV Lasix on March 01 Cardiology cleared the patient. Patient was treated inpatient with IV zosyn therapy, and started on rubinol for excess secretions. He was also on duoneb therapy. Sputum culture positive for pseudomonas and streptococcus pneumoniae. He received 10 days of IV antibiotic therapy inpatient. Repeat chest xray on day of discharge shows bilateral lower lobe infiltrate and small efffusion improved. He was weaned off oxygen therapy. 03/03/2022 Patient evaluated today sitting up in bed. He continues with trach and is off oxygen support. Secretions have improved. He is afebrile, heart rate 96, blood pressure 119/78, 91% room air. Labs today show white count 3.6, hemoglobin 11.1, platelet count 34, sodium 140, potassium 4.6, CO2 35, BUN 25, creatinine 0.77, blood glucose stable in the 80s, urinalysis is negative. Patient has been having bowel movements will continue on all regimen and this was discussed with patient. His lungs are clear no crackles no wheezing noted, S1-S2 auscultated, abdomen is soft and nontender with normoactive bowel sounds. PEG tube is clean dry around site. It had been evaluated by general surgery this admission due to leaking secondary to continual feedings. Patient can continue with bolus feedings as previous. He is alert x 4, focal neurological exam is negative. Patient will be discharged home today. Recommend to follow up with primary care, pulmonary and cardiology services. Also recommend to see his oncologist on discharge as well. Please see medication reconciliation for list of current medications. Thank you for allowing us participate in the care of this patient. Total time taken in discharge planning greater than 35 minutes The impression and plan of care has been dictated by Leti Shahid, Nurse Practitioner as directed. Dr. Evan MD I have performed a history and physical examination and medical decision making of this patient, discussed the same with the dictator, and agree with the dictators assessment and plan as written, documented as a scribe. Based on total visit time, I have performed more than 50% of this visit. Patient Condition at Discharge: Fair Plan - Discharge Summary Discharge Rx Participant: No New Discharge Prescriptions: New Docusate Oral Soln [Colace Oral Soln] 100 mg PO DAILY #30 ml Famotidine [Pepcid] 20 mg PO DAILY #30 tablet Acetaminophen Tab [Tylenol] 650 mg PO Q4HR PRN tab PRN Reason: Fever And/ Or Pain Zinc Oxide 20% Oint 1 applic TOPICAL TID PRN each PRN Reason: Skin Irritation Continue Glycopyrrolate 1 mg PEG/G-TUBE BID Methadone Solution 10mg/5ml 2.5 ml PEG/G-TUBE TID Discharge Medication List Glycopyrrolate 1 mg PEG/G-TUBE BID 02/22/22 [History] Methadone Solution 10mg/5ml 2.5 ml PEG/G-TUBE TID 02/22/22 [History] Acetaminophen Tab [Tylenol] 650 mg PO Q4HR PRN tab 03/03/22 [Rx] Docusate Oral Soln [Colace Oral Soln] 100 mg PO DAILY #30 ml 03/03/22 [Rx] Famotidine [Pepcid] 20 mg PO DAILY #30 tablet 03/03/22 [Rx] Zinc Oxide 20% Oint 1 applic TOPICAL TID PRN each 03/03/22 [Rx] Follow up Appointment(s)/Referral(s): Gabi Ed[address] Dr [Other] - 1-2 Days Alex Sebastian MD [STAFF PHYSICIAN] - 1 Week (Cardiology) Abdiel Patel DO [Doctor of Osteopathic Medicine] - 1 Week (Pulmonology ) Ambulatory/Diagnostic Orders: Basic Metabolic Panel [LAB.AMB] Time Frame: 2 Days, Location: None Selected Patient Instructions/Handouts: Dehydration (DC), Community Acquired Pneumonia (DC) Activity/Diet/Wound Care/Special Instructions: Continue on bowel regimen while using methadone to avoid constipation Patient has completed antibiotic therapy Jevity 1.5, continue BOLUS d/t leaking PEG tube with continous feeding. Bolus 180 mL x 12 feeding daily per pt's wishes. Continue with free water flushes, 120 mL 8 times daily Discharge Disposition: HOME SELF-CARE
== END 2022-03-03 19:06 | disposition home or self-care (01) | DRG 871 ==
LOC: EC 20:00 → 5NMEDONC 22:51 → 3SCARD 23:14
PROVIDERS: ADMIT Internal Medicine; ATTEND Internal Medicine
PROC: 3E0H76Z Introduction of Nutritional Substance into Lower GI, Via Natural or Artificial Opening (ICD-10-PCS; principal; 2022-02-21)
DX: A40.3 Sepsis due to Streptococcus pneumoniae (principal); J15.1 Pneumonia due to Pseudomonas; J15.4 Pneumonia due to other streptococci; J96.01 Acute respiratory failure with hypoxia; K94.23 Gastrostomy malfunction; I31.3 Pericardial effusion (noninflammatory); J90 Pleural effusion, not elsewhere classified; D64.9 Anemia, unspecified; I08.1 Rheumatic disorders of both mitral and tricuspid valves; B95.3 Streptococcus pneumoniae as the cause of diseases classified elsewhere; R13.10 Dysphagia, unspecified; K59.00 Constipation, unspecified; F90.9 Attention-deficit hyperactivity disorder, unspecified type; E86.0 Dehydration; M54.9 Dorsalgia, unspecified; F17.210 Nicotine dependence, cigarettes, uncomplicated; I44.5 Left posterior fascicular block; R77.8 Other specified abnormalities of plasma proteins; R05.3 Chronic cough; Z20.822 Contact with and (suspected) exposure to COVID-19; Z85.841 Personal history of malignant neoplasm of brain; Z92.21 Personal history of antineoplastic chemotherapy; Z92.3 Personal history of irradiation; Z98.890 Other specified postprocedural states
CPT/HCPCS: 36415; 71045; 71046; 71275; 74018; 80048; 80053; 80061; 81001; 83605; 83735; 83880; 84145; 84484; 85025; 85379; 85610; 85730; 87040; 87070; 87077; 87186; 87205; 87502; 87635; 93005; 93306; 94640; 94760; 96365; 96368; 96375; 99291

== ENCOUNTER 2022-04-12 17:10 | Inpatient (IN) | payer OTHER ==
[2022-04-12] MEDS ORDERED: ACETAMINOPHEN TAB 325 MG TAB PO STA (19:09)
--- NOTE | 2022-04-12 19:39 | XR ---
EXAMINATION TYPE: XR chest 2V DATE OF EXAM: 04/12/2022 COMPARISON: 03/03/2022 HISTORY: Pneumonia TECHNIQUE: 2 views FINDINGS: There is tracheostomy tube. There is some minimal atelectasis at the lung bases. Normal hea rt. No hilar mass. There is no mediastinal adenopathy. IMPRESSION: There is some mild atelectasis at the lung bases similar to old exam. There is a 13 mm no dular density at the lateral left lung base that is likely inflammatory and appears new compared to t he recent exam.
[2022-04-12] MEDS ORDERED: ACETAMINOPHEN IV (For NPO) 1,000 MG in EMPTY BAG 1 BAG IVPB STA (20:42)
[2022-04-12 21:06] LABS: Basophils % (A) 1 %; Eosinophils % (A) 0 %; HCT 36.3 % (39.0-53.0); HGB 12.2 gm/dL (13.0-17.5); Lymphocytes # (A) 0.3 k/uL (1.0-4.8); Lymphocytes % (A) 9 %; MCH 30.9 pg (25.0-35.0); MCHC 33.6 g/dL (31.0-37.0); Mean Platelet Volume 8.8; Monocytes # (A) 0.2 k/uL (0-1.0); Monocytes % (A) 6 %; Neutrophils # (A) 2.7 k/uL (1.3-7.7); Neutrophils % (A) 82 %; RBC 3.95 m/uL (4.30-5.90); RDW 15.2 % (11.5-15.5); WBC 3.3 k/uL (3.8-10.6)
[2022-04-12 21:16] LABS: Platelet Count 171 k/uL (150-450)
[2022-04-12 21:28] LABS: ALT 20 U/L (4-49); AST 30 U/L (17-59); African American GFR (CKD) >90 (>60 ml/min/1.73 sqM); Alkaline Phosphatase 75 U/L (38-126); Anion Gap 12 mmol/L; Blood Urea Nitrogen 25 mg/dL (9-20); Carbon Dioxide 28 mmol/L (22-30); Chloride 93 mmol/L (98-107); Glucose 93 mg/dL (74-99); Non-African American GFR(CKD) >90 (>60 ml/min/1.73 sqM); Potassium 3.9 mmol/L (3.5-5.1); Sodium 133 mmol/L (137-145); Total Bilirubin 0.4 mg/dL (0.2-1.3); Total Protein 7.1 g/dL (6.3-8.2)
[2022-04-12] MEDS ORDERED: IPRATROPIUM-ALBUTEROL 3 ML NEB INHALATION STA (21:39)
[2022-04-12] MEDS ORDERED: SODIUM CHLORIDE 0.9% 1,000 ML IV ONE (22:19)
[2022-04-12] MEDS: SODIUM CHLORIDE 0.9% 1,000 ML IV SCH (22:33)
--- NOTE | 2022-04-12 23:11 | ED ---
SOB HPI - General Chief Complaint: Shortness of Breath Stated Complaint: SIVAN,Fever,Headache Time Seen by Provider: 04/12/22 20:38 Source: patient Mode of arrival: wheelchair Limitations: no limitations - History of Present Illness Initial Comments: 21-year-old male with past medical history of brain tumor, dysphasia with trach and PEG who presents emergency department with productive cough. States he's had an increased amount of sputum production, cough and shortness of breath with fever that started yesterday. He was hospitalized a few months ago with similar complaint and ended up having pneumonia. He denies any sick contacts and also admits to generalized myalgias. - Related Data Home Medications Medication Instructions Recorded Confirmed Glycopyrrolate 1 mg PEG/G-TUBE TID PRN 02/22/22 04/13/22 Docusate Oral Soln [Colace Oral 100 mg PEG/G-TUBE DAILY 04/13/22 04/13/22 Soln] Allergies Allergy/AdvReac Type Severity Reaction Status Date / Time No Known Allergies Allergy Verified 04/13/22 09:15 Review of Systems ROS Statement: Those systems with pertinent positive or pertinent negative responses have been documented in the HPI. ROS Other: All systems not noted in ROS Statement are negative. Past Medical History Past Medical History: Cancer Additional Past Medical History / Comment(s): brain cancer, tracheostomy History of Any Multi-Drug Resistant Organisms: None Reported Past Surgical History: No Surgical Hx Reported Additional Past Surgical History / Comment(s): brain surgery Past Anesthesia/Blood Transfusion Reactions: No Reported Reaction Past Psychological History: ADD/ADHD Smoking Status: Current some day smoker Past Alcohol Use History: None Reported Past Drug Use History: None Reported, Marijuana - Past Family History Father History Unknown: Yes General Exam Limitations: no limitations General appearance: alert, in no apparent distress Head exam: Present: atraumatic, normocephalic, normal inspection Eye exam: Present: normal appearance, PERRL, EOMI. Absent: scleral icterus, conjunctival injection, periorbital swelling ENT exam: Present: normal exam, mucous membranes moist Neck exam: Present: other (5.[address] increased clear sputum production). Absent: tenderness, meningismus, lymphadenopathy Respiratory exam: Present: normal lung sounds bilaterally. Absent: respiratory distress, wheezes, rales, rhonchi, stridor Cardiovascular Exam: Present: normal rhythm, tachycardia, normal heart sounds. Absent: systolic murmur, diastolic murmur, rubs, gallop, clicks GI/Abdominal exam: Present: soft, normal bowel sounds. Absent: distended, tenderness, guarding, rebound, rigid Extremities exam: Present: normal inspection, full ROM, normal capillary refill. Absent: tenderness, pedal edema, joint swelling, calf tenderness Back exam: Present: normal inspection Neurological exam: Present: alert, oriented X3, CN II-XII intact Psychiatric exam: Present: normal affect, normal mood Skin exam: Present: warm, dry, intact, normal color. Absent: rash Course Vital Signs 04/12/22 04/12/22 04/12/22 19:04 20:55 21:53 Temperature 102.1 F H Pulse Rate 108 H 75 Respiratory 24 18 Rate Blood Pressure 100/58 O2 Sat by Pulse 95 Oximetry 04/12/22 04/13/22 04/13/22 22:18 01:00 04:00 Temperature 98.0 F 100.2 F H Pulse Rate 78 83 89 Respiratory 18 22 Rate Blood Pressure 101/59 121/72 O2 Sat by Pulse 99 98 Oximetry 04/13/22 09:00 Temperature 98.2 F Pulse Rate 101 H Respiratory Rate Blood Pressure 114/69 O2 Sat by Pulse 96 Oximetry Medical Decision Making - Medical Decision Making Upon arrival patient was placed into room 21. There are history of physical exam was performed. Patient does arrive with 102.1. He does not have tubing for his PEG tube and therefore he is given IV Ofirmiv. Patient is given a liter bolus of normal saline followed by 130 mL/h. Patient is given a breathing treatment and his trachea suctioned. Laboratory studies are reviewed which demonstrates a leukopenia of 3.3. Sodium is 133. Covid is not detected. Chest x-ray demonstrates mild atelectasis at the lung bases. Due to increased secretions the patient will be initiated on antibiotics. Did recommend admission for which the patient was agreeable. Spoke with Dr. Merrill who agreed to admit the patient - Lab Data Result diagrams: 04/15/22 07:19 04/15/22 07:19 Lab Results 04/12/22 04/12/22 04/12/22 Range/Units 19:08 20:57 20:57 WBC 3.3 L (3.8-10.6) k/uL RBC 3.95 L (4.30-5.90) m/uL Hgb 12.2 L (13.0-17.5) gm/dL Hct 36.3 L (39.0-53.0) % MCV 92.0 (80.0-100.0) fL MCH 30.9 (25.0-35.0) pg MCHC 33.6 (31.0-37.0) g/dL RDW 15.2 (11.5-15.5) % Plt Count 171 D (150-450) k/uL MPV 8.8 Neutrophils % 82 % Lymphocytes % 9 % Monocytes % 6 % Eosinophils % 0 % Basophils % 1 % Neutrophils # 2.7 (1.3-7.7) k/uL Lymphocytes # 0.3 L (1.0-4.8) k/uL Monocytes # 0.2 (0-1.0) k/uL Eosinophils # 0.0 (0-0.7) k/uL Basophils # 0.0 (0-0.2) k/uL Sodium 133 L (137-145) mmol/L Potassium 3.9 (3.5-5.1) mmol/L Chloride 93 L (98-107) mmol/L Carbon Dioxide 28 (22-30) mmol/L Anion Gap 12 mmol/L BUN 25 H (9-20) mg/dL Creatinine 0.58 L (0.66-1.25) mg/dL Est GFR (CKD-EPI)AfAm >90 (>60 ml/min/1.73 sqM) Est GFR (CKD-EPI)NonAf >90 (>60 ml/min/1.73 sqM) Glucose 93 (74-99) mg/dL Plasma Lactic Acid Filipe (0.7-2.0) mmol/L Calcium 9.0 (8.4-10.2) mg/dL Total Bilirubin 0.4 (0.2-1.3) mg/dL AST 30 (17-59) U/L ALT 20 (4-49) U/L Alkaline Phosphatase 75 (38-126) U/L Total Protein 7.1 (6.3-8.2) g/dL Albumin 4.0 (3.5-5.0) g/dL Coronavirus (PCR) Not Detected (Not Detectd) 04/12/22 Range/Units 20:57 WBC (3.8-10.6) k/uL RBC (4.30-5.90) m/uL Hgb (13.0-17.5) gm/dL Hct (39.0-53.0) % MCV (80.0-100.0) fL MCH (25.0-35.0) pg MCHC (31.0-37.0) g/dL RDW (11.5-15.5) % Plt Count (150-450) k/uL MPV Neutrophils % % Lymphocytes % % Monocytes % % Eosinophils % % Basophils % % Neutrophils # (1.3-7.7) k/uL Lymphocytes # (1.0-4.8) k/uL Monocytes # (0-1.0) k/uL Eosinophils # (0-0.7) k/uL Basophils # (0-0.2) k/uL Sodium (137-145) mmol/L Potassium (3.5-5.1) mmol/L Chloride (98-107) mmol/L Carbon Dioxide (22-30) mmol/L Anion Gap mmol/L BUN (9-20) mg/dL Creatinine (0.66-1.25) mg/dL Est GFR (CKD-EPI)AfAm (>60 ml/min/1.73 sqM) Est GFR (CKD-EPI)NonAf (>60 ml/min/1.73 sqM) Glucose (74-99) mg/dL Plasma Lactic Acid Filipe 0.6 L (0.7-2.0) mmol/L Calcium (8.4-10.2) mg/dL Total Bilirubin (0.2-1.3) mg/dL AST (17-59) U/L ALT (4-49) U/L Alkaline Phosphatase (38-126) U/L Total Protein (6.3-8.2) g/dL Albumin (3.5-5.0) g/dL Coronavirus (PCR) (Not Detectd) Disposition Clinical Impression: Tachycardia, Dehydration, Myalgia, CAP (community acquired pneumonia) Disposition: ADMITTED IP TO THIS [facility] Condition: Stable Is patient prescribed a controlled substance at d/c from ED?: No Time of Disposition: 23:19 Decision to Admit Reason: Admit from EC Decision Date: 04/12/22 Decision Time: 23:19
[2022-04-12] MEDS ORDERED: NALOXONE 0.4 MG/ML 1 ML VIAL IV PRN (23:19)
[2022-04-12] MEDS: PIPERACILLIN-TAZOBACTAM 3.375 GM in SODIUM CHLORIDE 0.9% 100 ML IVPB SCH (23:24)
[2022-04-13] MEDS ORDERED: ACETAMINOPHEN IV (For NPO) 1,000 MG in EMPTY BAG 1 BAG IVPB ONE (04:57)
[2022-04-13 05:25] LABS: HCT 39.3 % (39.0-53.0); HGB 12.8 gm/dL (13.0-17.5); MCH 30.6 pg (25.0-35.0); MCHC 32.6 g/dL (31.0-37.0); MCV 93.8 fL (80.0-100.0); Mean Platelet Volume 8.1; Platelet Count 136 k/uL (150-450); RBC 4.19 m/uL (4.30-5.90); RDW 15.3 % (11.5-15.5); WBC 3.3 k/uL (3.8-10.6)
[2022-04-13] MEDS: SODIUM CHLORIDE 0.9% 1,000 ML IV SCH ×2 (06:04→19:23)
[2022-04-13 06:12] LABS: Band Neutrophils % 29 %; Lymphocytes # (M) 0.66 k/uL (1.0-4.8); Neutrophils % (M) 45 %; Nucleated Red Blood Cells 0 /100 WBC (0-0); Total Cells Counted 200
[2022-04-13 06:23] LABS: Appearance,Urine Clear (Clear); Bilirubin,Urine Negative (Negative); Blood,Urine Negative (Negative); Color,Urine Light Yellow; Glucose,Urine (UA) Negative (Negative); Ketones,Urine Negative (Negative); Leukocyte Esterase,Urine Negative (Negative); Nitrite,Urine Negative (Negative); Protein,Urine Negative (Negative); Specific Gravity,Urine 1.011 (1.001-1.035); Urobilinogen,Urine <2.0 mg/dL (<2.0)
[2022-04-13 06:26] LABS: African American GFR (CKD) >90 (>60 ml/min/1.73 sqM); Anion Gap 11 mmol/L; Blood Urea Nitrogen 20 mg/dL (9-20); Calcium 8.5 mg/dL (8.4-10.2); Carbon Dioxide 26 mmol/L (22-30); Chloride 101 mmol/L (98-107); Glucose 77 mg/dL (74-99); Non-African American GFR(CKD) >90 (>60 ml/min/1.73 sqM); Sodium 138 mmol/L (137-145)
[2022-04-13 07:05] LABS: Potassium 3.9 mmol/L (3.5-5.1)
[2022-04-13] MEDS ORDERED: GLYCOPYRROLATE 1 MG TAB PEG/G-TUBE SCH (09:00)
[2022-04-13] MEDS: PIPERACILLIN-TAZOBACTAM 3.375 GM in SODIUM CHLORIDE 0.9% 100 ML IVPB SCH ×2 (09:01→16:01)
[2022-04-13] MEDS: HYDROcodone/APAP 15 ML SOLUTION PO PRN ×2 (12:02→17:31)
--- NOTE | 2022-04-13 13:45 | P.CNPUL ---
History of Present Illness Consult date: 04/13/22 Reason for consult: dyspnea History of present illness: 21-year-old male with past medical history of brain tumor, dysphasia with trach and PEG who presents emergency department with productive cough. States he's had an increased amount of sputum production, cough and shortness of breath with fever that started yesterday. He was hospitalized a few months ago with similar complaint and ended up having pneumonia. He denies any sick contacts and also admits to generalized myalgias. This patient is known to me. The care of his hospitalization. At that time, the patient had pneumonia with a combination of gram-negative bacteria including pseudomonas and strep. The patient was treated and the patient was discharged home and the patient is coming back with some increased sputum production and increased shortness of breath. No headache. No change in mental status. No nausea or vomiting. He is not eating any receiving enteral feeding for nutritional support. The patient is currently on room air oxygen. Patient has a white cell count of 3.3 with hemoglobin of 12.8 and the platelet count of 136. BMI of 0.6 and a sodium level is 138. The chest x-ray showing some atelectatic changes in lung bases. Question another . The left lung base was also seen. This is likely inflammatory. Patient has no specific complaints for now. He denies having any aspiration. Review of Systems CONSTITUTIONAL: No fever, no malaise, no fatigue. HEENT: No recent visual problems or hearing problems. Denied any sore throat. CARDIOVASCULAR: No orthopnea, PND, no palpitations, no syncope. PULMONARY: No chest wall tenderness, no hemoptysis. GASTROINTESTINAL: No diarrhea, no nausea, no vomiting, Normoactive bowel sounds. NEUROLOGICAL: No headaches, no weakness, no numbness. HEMATOLOGICAL: Denies any bleeding or petechiae. GENITOURINARY: Denies any burning micturition, frequency, or urgency. MUSCULOSKELETAL/RHEUMATOLOGICAL: Denies any joint pain, swelling, or any muscle pain. ENDOCRINE: Denies any polyuria or polydipsia. Past Medical History Past Medical History: Cancer Additional Past Medical History / Comment(s): brain cancer, tracheostomy History of Any Multi-Drug Resistant Organisms: None Reported Past Surgical History: No Surgical Hx Reported Additional Past Surgical History / Comment(s): brain surgery Past Anesthesia/Blood Transfusion Reactions: No Reported Reaction Past Psychological History: ADD/ADHD Smoking Status: Current some day smoker Past Alcohol Use History: None Reported Past Drug Use History: None Reported, Marijuana Medications and Allergies Home Medications Medication Instructions Recorded Confirmed Type Glycopyrrolate 1 mg PEG/G-TUBE TID PRN 02/22/22 04/13/22 History Docusate Oral Soln [Colace Oral 100 mg PEG/G-TUBE DAILY 04/13/22 04/13/22 History Soln] Allergies Allergy/AdvReac Type Severity Reaction Status Date / Time No Known Allergies Allergy Verified 04/13/22 09:15 Physical Exam Vitals: Vital Signs Temp Pulse Resp BP Pulse Ox 04/13/22 09:00 98.2 F 101 H 114/69 96 04/13/22 04:00 100.2 F H 89 22 121/72 98 04/13/22 01:00 98.0 F 83 18 101/59 99 04/12/22 22:18 78 04/12/22 21:53 75 04/12/22 20:55 18 04/12/22 19:04 102.1 F H 108 H 24 100/58 95 Intake and Output 04/12/22 04/13/22 04/13/22 22:59 06:59 14:59 Intake Total 100 Output Total 650 Balance -550 Intake: Intake, IV Titration 100 Amount Piperacillin-Tazobactam 3 100 .375 gm In Sodium Chloride 0.9% 100 ml @ 25 mls/hr IVPB Q8HR [facility] Rx# :[id number] Output: Urine 650 Other: Weight 56.699 kg GENERAL EXAM: Alert, very pleasant, 21-year-old white comfortable in no apparent distress. HEAD: Normocephalic/atraumatic. EYES: Normal reaction of pupils, equal size. Conjunctiva pink, sclera white. NOSE: Clear with pink turbinates. THROAT: No erythema or exudates. NECK: No masses, no JVD, no thyroid enlargement, no adenopathy. Midline tracheostomy is in place, patient is bringing up large amounts of tracheal bronchial secretions that are white in color CHEST: No chest wall deformity. Symmetrical expansion. LUNGS: Equal air entry with no crackles, wheeze, rhonchi or dullness. CVS: Regular rate and rhythm, normal S1 and S2, no gallops, no murmurs, no rubs ABDOMEN: Soft, nontender. No hepatosplenomegaly, normal bowel sounds, no guarding or rigidity. PEG tube is in place, patient is receiving PEG tube feedings EXTREMITIES: No clubbing, no edema, no cyanosis, 2+ pulses and upper and lower extremities. MUSCULOSKELETAL: Muscle strength and tone normal. SPINE: No scoliosis or deformity SKIN: No rashes CENTRAL NERVOUS SYSTEM: Alert and oriented -3. No focal deficits, tone is normal in all 4 extremities. PSYCHIATRIC: Alert and oriented -3. Appropriate affect. Intact judgment and insight. Results - Laboratory Findings CBC and BMP: 04/13/22 04:49 04/13/22 04:49 ABG WBC 3.3 k/uL (3.8-10.6) L 04/13/22 04:49 RBC 4.19 m/uL (4.30-5.90) L 04/13/22 04:49 Hgb 12.8 gm/dL (13.0-17.5) L 04/13/22 04:49 Hct 39.3 % (39.0-53.0) 04/13/22 04:49 MCV 93.8 fL (80.0-100.0) 04/13/22 04:49 MCH 30.6 pg (25.0-35.0) 04/13/22 04:49 MCHC 32.6 g/dL (31.0-37.0) 04/13/22 04:49 RDW 15.3 % (11.5-15.5) 04/13/22 04:49 Plt Count 136 k/uL (150-450) L 04/13/22 04:49 MPV 8.1 04/13/22 04:49 Neutrophils % 82 % 04/12/22 20:57 Neutrophils % (Manual) 45 % 04/13/22 04:49 Band Neuts % (Manual) 29 % 04/13/22 04:49 Lymphocytes % 9 % 04/12/22 20:57 Lymphocytes % (Manual) 20 % 04/13/22 04:49 Monocytes % 6 % 04/12/22 20:57 Monocytes % (Manual) 6 % 04/13/22 04:49 Eosinophils % 0 % 04/12/22 20:57 Basophils % 1 % 04/12/22 20:57 Neutrophils # 2.7 k/uL (1.3-7.7) 04/12/22 20:57 Neutrophils # (Manual) 2.40 k/uL (1.3-7.7) 04/13/22 04:49 Lymphocytes # 0.3 k/uL (1.0-4.8) L 04/12/22 20:57 Lymphocytes # (Manual) 0.66 k/uL (1.0-4.8) L 04/13/22 04:49 Monocytes # 0.2 k/uL (0-1.0) 04/12/22 20:57 Monocytes # (Manual) 0.20 k/uL (0-1.0) 04/13/22 04:49 Eosinophils # 0.0 k/uL (0-0.7) 04/12/22 20:57 Basophils # 0.0 k/uL (0-0.2) 04/12/22 20:57 Nucleated RBCs 0 /100 WBC (0-0) 04/13/22 04:49 Manual Slide Review Performed 04/13/22 04:49 Sodium 138 mmol/L (137-145) 04/13/22 04:49 Potassium 3.9 mmol/L (3.5-5.1) 04/13/22 04:49 Chloride 101 mmol/L (98-107) 04/13/22 04:49 Carbon Dioxide 26 mmol/L (22-30) 04/13/22 04:49 Anion Gap 11 mmol/L 04/13/22 04:49 BUN 20 mg/dL (9-20) 04/13/22 04:49 Creatinine 0.61 mg/dL (0.66-1.25) L 04/13/22 04:49 Est GFR (CKD-EPI)AfAm >90 (>60 ml/min/1.73 sqM) 04/13/22 04:49 Est GFR (CKD-EPI)NonAf >90 (>60 ml/min/1.73 sqM) 04/13/22 04:49 Glucose 77 mg/dL (74-99) 04/13/22 04:49 Plasma Lactic Acid Filipe 0.6 mmol/L (0.7-2.0) L 04/12/22 20:57 Calcium 8.5 mg/dL (8.4-10.2) 04/13/22 04:49 Total Bilirubin 0.4 mg/dL (0.2-1.3) 04/12/22 20:57 AST 30 U/L (17-59) 04/12/22 20:57 ALT 20 U/L (4-49) 04/12/22 20:57 Alkaline Phosphatase 75 U/L (38-126) 04/12/22 20:57 Total Protein 7.1 g/dL (6.3-8.2) 04/12/22 20:57 Albumin 4.0 g/dL (3.5-5.0) 04/12/22 20:57 Urine Color Light Yellow 04/13/22 06:10 Urine Appearance Clear (Clear) 04/13/22 06:10 Urine pH 7.0 (5.0-8.0) 04/13/22 06:10 Ur Specific [place] 1.011 (1.001-1.035) 04/13/22 06:10 Urine Protein Negative (Negative) 04/13/22 06:10 Urine Glucose (UA) Negative (Negative) 04/13/22 06:10 Urine Ketones Negative (Negative) 04/13/22 06:10 Urine Blood Negative (Negative) 04/13/22 06:10 Urine Nitrite Negative (Negative) 04/13/22 06:10 Urine Bilirubin Negative (Negative) 04/13/22 06:10 Urine Urobilinogen <2.0 mg/dL (<2.0) 04/13/22 06:10 Ur Leukocyte Esterase Negative (Negative) 04/13/22 06:10 Coronavirus (PCR) Not Detected (Not Detectd) 04/12/22 19:08 Abnormal lab findings: Abnormal Labs 04/12/22 04/12/22 04/12/22 20:57 20:57 20:57 WBC 3.3 L RBC 3.95 L Hgb 12.2 L Hct 36.3 L Plt Count Lymphocytes # 0.3 L Lymphocytes # (Manual) Sodium 133 L Chloride 93 L BUN 25 H Creatinine 0.58 L Plasma Lactic Acid Filipe 0.6 L 04/13/22 04/13/22 04:49 04:49 WBC 3.3 L RBC 4.19 L Hgb 12.8 L Hct Plt Count 136 L Lymphocytes # Lymphocytes # (Manual) 0.66 L Sodium Chloride BUN Creatinine 0.61 L Plasma Lactic Acid Filipe - Diagnostic Findings Chest x-ray: image reviewed Assessment and Plan Plan: Acute tracheobronchitis with increased sputum production and some increased shortness of breath. No clear indication for pneumonia. The patient has another event the left lung base which is probably inflammatory from previous pneumonias. Currently on room air oxygen. dyspnea secondary to above Previous history of a acute hypoxemic respiratory failure secondary to bilateral pneumonia, and the patient has grown a combination of pseudomonas aeruginosa and streptococcal pneumonia , treated Bilateral pleural effusions, recovered History of brain cancer, status post surgical excision, and chemoradiation. Previous history of tracheostomy and PEG tube placement. PEG tube for Enteral feeding, Jevity Generalized debility secondary to above Plan Aspiration precautions Repeat sputum Gram stain and culture IV Zosyn Restart enteral feeding for nutritional support IV fluid Rubinol for excessive respiratory secretions We'll continue to follow
--- NOTE | 2022-04-13 14:10 | P.HPIM ---
History of Present Illness 21-year-old male with history of brain tumor came in with Complaints of Fever Shortness of Breath and Increased Secretions and Thick Secretions from the Tracheostomy Patient Has a Tracheostomy for Many Years. Patient Was Recently Ad mitted and Treated for Pneumonia and Sputum at That Time Showed Pseudomonas and Streptococci. Patient Was Started on Zosyn Again Chest X-Ray Showing Some Atelectatic Changes. Patient Denied Any Dysuria Denied Any Nausea Vomiting.. Pulmonology Was Consulted. REVIEW OF SYSTEMS: CONSTITUTIONAL: As mentioned in HPI HEENT: No recent visual problems or hearing problems. Denied any sore throat. CARDIOVASCULAR: No chest pain, orthopnea, PND, no palpitations, no syncope. PULMONARY: No shortness of breath, no cough, no hemoptysis. GASTROINTESTINAL: No diarrhea, no nausea, no vomiting, no abdominal pain. NEUROLOGICAL: No headaches, no weakness, no numbness. HEMATOLOGICAL: Denies any bleeding or petechiae. GENITOURINARY: Denies any burning micturition, frequency, or urgency. MUSCULOSKELETAL/RHEUMATOLOGICAL: Denies any joint pain, swelling, or any muscle pain. ENDOCRINE: Denies any polyuria or polydipsia. The rest of the 14-point review of systems is negative. PHYSICAL EXAMINATION: GENERAL: The patient is alert and oriented x3, not in any acute distress. Well developed, well nourished. HEENT: Pupils are round and equally reacting to light. EOMI. No scleral icterus. No conjunctival pallor. Normocephalic, atraumatic. No pharyngeal erythema. No thyromegaly. CARDIOVASCULAR: S1 and S2 present. No murmurs, rubs, or gallops. PULMONARY tracheostomy in place bilateral rhonchi. ABDOMEN: Soft, nontender, nondistended, normoactive bowel sounds. No palpable organomegaly. MUSCULOSKELETAL: No joint swelling or deformity. EXTREMITIES: No cyanosis, clubbing, or pedal edema. NEUROLOGICAL: Gross neurological examination did not reveal any focal deficits. SKIN: No rashes. Assessment and plan -Severe acute tracheobronchitis inkling increased sputum production, patient w ill be continued on Zosyn to treat for both streptococci and Pseudomonas -Shortness of breath secondary to acute bronchitis -History of brain cancer status post surgical excision and chemoradiation with the tracheostomy and PEG tube -Continued nicotine use: Counseling was provided DVT prophylaxis: Lovenox Past Medical History Past Medical History: Cancer Additional Past Medical History / Comment(s): brain cancer, tracheostomy History of Any Multi-Drug Resistant Organisms: None Reported Past Surgical History: No Surgical Hx Reported Additional Past Surgical History / Comment(s): brain surgery Past Anesthesia/Blood Transfusion Reactions: No Reported Reaction Past Psychological History: ADD/ADHD Smoking Status: Current some day smoker Past Alcohol Use History: None Reported Past Drug Use History: None Reported, Marijuana Medications and Allergies Home Medications Medication Instructions Recorded Confirmed Type Glycopyrrolate 1 mg PEG/G-TUBE TID PRN 02/22/22 04/13/22 History Docusate Oral Soln [Colace Oral 100 mg PEG/G-TUBE DAILY 04/13/22 04/13/22 History Soln] Allergies Allergy/AdvReac Type Severity Reaction Status Date / Time No Known Allergies Allergy Verified 04/13/22 09:15 Physical Exam Vitals: Vital Signs Temp Pulse Resp BP Pulse Ox 04/13/22 09:00 98.2 F 101 H 114/69 96 04/13/22 04:00 100.2 F H 89 22 121/72 98 04/13/22 01:00 98.0 F 83 18 101/59 99 04/12/22 22:18 78 04/12/22 21:53 75 04/12/22 20:55 18 04/12/22 19:04 102.1 F H 108 H 24 100/58 95 Intake and Output 04/12/22 04/13/22 04/13/22 22:59 06:59 14:59 Intake Total 100 Output Total 650 Balance -550 Intake: Intake, IV Titration 100 Amount Piperacillin-Tazobactam 3 100 .375 gm In Sodium Chloride 0.9% 100 ml @ 25 mls/hr IVPB Q8HR [facility] Rx# :[id number] Output: Urine 650 Other: Weight 56.699 kg Results CBC & Chem 7: 04/13/22 04:49 04/13/22 04:49 Labs: Abnormal Lab Results - Last 24 Hours (Table) 04/12/22 04/12/22 04/12/22 Range/Units 20:57 20:57 20:57 WBC 3.3 L (3.8-10.6) k/uL RBC 3.95 L (4.30-5.90) m/uL Hgb 12.2 L (13.0-17.5) gm/dL Hct 36.3 L (39.0-53.0) % Plt Count (150-450) k/uL Lymphocytes # 0.3 L (1.0-4.8) k/uL Lymphocytes # (Manual) (1.0-4.8) k/uL Sodium 133 L (137-145) mmol/L Chloride 93 L (98-107) mmol/L BUN 25 H (9-20) mg/dL Creatinine 0.58 L (0.66-1.25) mg/dL Plasma Lactic Acid Filipe 0.6 L (0.7-2.0) mmol/L 04/13/22 04/13/22 Range/Units 04:49 04:49 WBC 3.3 L (3.8-10.6) k/uL RBC 4.19 L (4.30-5.90) m/uL Hgb 12.8 L (13.0-17.5) gm/dL Hct (39.0-53.0) % Plt Count 136 L (150-450) k/uL Lymphocytes # (1.0-4.8) k/uL Lymphocytes # (Manual) 0.66 L (1.0-4.8) k/uL Sodium (137-145) mmol/L Chloride (98-107) mmol/L BUN (9-20) mg/dL Creatinine 0.61 L (0.66-1.25) mg/dL Plasma Lactic Acid Filipe (0.7-2.0) mmol/L
[2022-04-13] MEDS: ACETAMINOPHEN TAB 325 MG TAB PO PRN (19:09)
[2022-04-13] MEDS ORDERED: SODIUM CHLORIDE 0.9% 500 ML 500 ML IV ONE (19:37)
[2022-04-13] MEDS: MORPHINE SULFATE 2 MG/ML SYRINGE IVP STA ×2 (19:38→23:57)
[2022-04-13] MEDS ORDERED: HYDROmorphone 0.5 MG/0.5 ML SYRINGE IVP STA (19:39)
[2022-04-14] MEDS: PIPERACILLIN-TAZOBACTAM 3.375 GM in SODIUM CHLORIDE 0.9% 100 ML IVPB SCH ×4 (00:02→23:56)
[2022-04-14] MEDS: GLYCOPYRROLATE 1 MG TAB PEG/G-TUBE PRN ×2 (00:03→22:13)
[2022-04-14] MEDS: ACETAMINOPHEN TAB 325 MG TAB PO PRN (02:40)
[2022-04-14] MEDS ORDERED: SODIUM CHLORIDE 0.9% 500 ML 500 ML IV ONE ×2 (02:57→06:45)
[2022-04-14] MEDS ORDERED: ACETAMINOPHEN TAB 325 MG TAB PO STA ×2 (02:57→07:37)
[2022-04-14] MEDS: HYDROcodone/APAP 15 ML SOLUTION PO PRN (03:06)
[2022-04-14] MEDS: SODIUM CHLORIDE 0.9% 1,000 ML IV SCH ×2 (03:09→20:07)
[2022-04-14 03:13] LABS: Glucose,Whole Blood 81 mg/dL (70-110)
[2022-04-14] MEDS: ENOXAPARIN 40 MG/0.4 ML SYRINGE SQ SCH (08:53)
[2022-04-14 09:13] LABS: HGB 10.9 g/dL (13.0-17.0); MCH 29.9 pg (27.0-32.0); MCHC 32.1 g/dL (32.0-37.0); MCV 93.4 fL (80.0-97.0); NRBC Per 100 WBC 0 /100 WBCS (0.0-0.0); Platelet Count 150 X 10*3/uL (140-440); RBC 3.64 X 10*6/uL (4.40-5.60); WBC 4.01 X 10*3/uL (4.50-10.00)
[2022-04-14 09:33] LABS: African American GFR (CKD) 156.3 (60.0-200.0); Anion Gap 4.8 mmol/L (10.00-18.00); BUN/Creat Ratio 17.43 Ratio (12.00-20.00); Blood Urea Nitrogen 12.2 mg/dL (9.0-27.0); Calcium 8.1 mg/dL (8.7-10.3); Carbon Dioxide 30.2 mmol/L (20.0-27.5); Non-African American GFR(CKD) 134.9 (60.0-200.0); Potassium 4.2 mmol/L (3.5-5.5)
[2022-04-14] MEDS ORDERED: IBUPROFEN 400 MG TAB PO STA (11:32)
[2022-04-14] MEDS ORDERED: VANCOMYCIN 1,000 MG VIAL ONE (13:30)
[2022-04-14] MEDS ORDERED: SODIUM CHLORIDE 0.9% 500 ML BAG ONE (13:30)
[2022-04-14] MEDS ORDERED: KETOROLAC 15 MG/ML 1 ML VIAL ONE (13:30)
[2022-04-14] MEDS ORDERED: ACETAMINOPHEN TAB 325 MG TAB ONE (13:30)
[2022-04-14] MEDS ORDERED: HYDROmorphone 0.5 MG/0.5 ML SYRINGE ONE (13:30)
[2022-04-14] MEDS ORDERED: SODIUM CHLORIDE 0.9% 250 ML BAG ONE (13:30)
[2022-04-14 19:09] LABS: Glucose,Whole Blood 108 mg/dL (70-110)
[2022-04-14] MEDS ORDERED: VANCOMYCIN IV PER PHARMACY 1 EACH MISC MISCELLANE PRN (19:44)
[2022-04-14] MEDS: NOREPINEPHRINE 4 MG in SODIUM CHLORIDE 0.9% 250 ML IV SCH (20:07)
--- NOTE | 2022-04-14 20:41 | P.PN ---
Subjective Progress Note Date: 04/14/22 Principal diagnosis: Acute on chronic hypoxic respiratory failure suspect sepsis, and septic shock. 21-year-old male with past medical history of brain tumor, dysphasia with trach and PEG who presents emergency department with productive cough. States he's had an increased amount of sputum production, cough and shortness of breath with fever that started yesterday. He was hospitalized a few months ago with similar complaint and ended up having pneumonia. He denies any sick contacts and also admits to generalized myalgias. This patient is known to me. The care of his h ospitalization. At that time, the patient had pneumonia with a combination of gram-negative bacteria including pseudomonas and strep. The patient was treated and the patient was discharged home and the patient is coming back with some increased sputum production and increased shortness of breath. No headache. No change in mental status. No nausea or vomiting. He is not eating any receiving enteral feeding for nutritional support. The patient is currently on room air oxygen. Patient has a white cell count of 3.3 with hemoglobin of 12.8 and the platelet count of 136. BMI of 0.6 and a sodium level is 138. The chest x-ray showing some atelectatic changes in lung bases. Question another . The left lung base was also seen. This is likely inflammatory. Patient has no specific complaints for now. He denies having any aspiration. Patient was reevaluated today. On 04/14/2022, patient does not seem to be doing well, he is hypotensive and having intermittent episodes of fever. Hence I recommended transferring the patient to the ICU. Patient is already on antibiotics in the form of Zosyn, I'm adding vancomycin, and I'm recommending referral to the ICU and referral to infectious disease, as well as referral to neurology. Patient will likely need to be placed on norepinephrine, he received already 2 L of IV fluid boluses, and his blood pressure remains marginal. Patient is also complaining of headaches. Remains on trach collar, and his O2 requirement seems to be going up Objective - Vital Signs Vital signs: Vital Signs Temp 99.8 F H 04/14/22 07:44 Pulse 69 04/14/22 07:44 Resp 16 04/14/22 07:44 BP 98/51 04/14/22 07:44 Pulse Ox 93 L 04/14/22 07:44 FiO2 40 04/14/22 05:02 Intake & Output 04/14/22 04/14/22 04/15/22 06:59 18:59 06:59 Intake Total 240 Output Total 600 1200 Balance -360 -1200 Weight 56.699 kg Intake: Tube Feeding 240 Output: Urine 600 1200 Other: Voiding Method Urinal Urinal # Voids 0 - Exam Physical Exam: Revealed a 21-year-old male in no distress on trach collar. Head: Atraumatic, normocephalic. HEENT:[Neck is supple.] [No neck masses.] [No thyromegaly.] [No JVD.] Chest: [Diffuse rhonchi bilaterally.] Cardiac Exam: [Normal S1 and S2, no S3 gallop, no murmur.] Abdomen: [Soft, nontender, no megaly, no rebound, no guarding, normal bowel sounds.] Extremities: [No clubbing, no edema, no cyanosis.] Neurological Exam: [No focal neurologic deficit.] Psychiatric: Normal mood affect and normal mental status examination. Skin: No rashes - Labs CBC & Chem 7: 04/14/22 06:39 04/14/22 06:39 Labs: Abnormal Lab Results - Last 24 Hours (Table) 04/14/22 04/14/22 Range/Units 06:39 06:39 WBC 4.01 L (4.50-10.00) X 10*3/uL RBC 3.64 L (4.40-5.60) X 10*6/uL Hgb 10.9 L (13.0-17.0) g/dL Hct 34.0 L (39.6-50.0) % RDW 15.0 H (11.5-14.5) % Carbon Dioxide 30.2 H (20.0-27.5) mmol/L Anion Gap 4.80 L (10.00-18.00) mmol/L Glucose 115 H (70-110) mg/dL Calcium 8.1 L (8.7-10.3) mg/dL Microbiology - Last 24 Hours (Table) 04/12/22 23:08 Blood Culture Gram Stain - Preliminary Blood Blood Culture - Preliminary Coagulase Negative Staph 04/12/22 23:23 Blood Culture - Preliminary Blood No Growth after 24 hours 04/12/22 23:08 Blood Culture - Final Blood Assessment and Plan Assessment: Impression: Suspect sepsis and possible septic shock. Suspect pneumonia, patient had previous history of Pseudomonas and streptococcal pneumonia History of brain tumor. History of tracheostomy and respiratory failure. Recommendation: Transfer patient out of the ICU Continue antibiotics and brought of the spectrum, add vancomycin to Zosyn. Continue fluid boluses and fluids. Consider starting the patient on norepinephrine. Infectious disease consultation was initiated. We will continue to follow while in the ICU. Continue trach collar, consider placing the patient on ventilatory support if his condition gets any worse. Time with Patient: Less than 30
[2022-04-14] MEDS ORDERED: HYDROmorphone 0.5 MG/0.5 ML SYRINGE IVP STA (22:36)
[2022-04-15] MEDS: KETOROLAC 15 MG/ML 1 ML VIAL IVP SCH ×5 (00:09→23:29)
[2022-04-15] MEDS: VANCOMYCIN 1,000 MG in SODIUM CHLORIDE 0.9% 250 ML IVPB SCH ×2 (00:25→09:10)
[2022-04-15] MEDS: GLYCOPYRROLATE 1 MG TAB PEG/G-TUBE PRN ×2 (04:58→23:23)
[2022-04-15] MEDS: SODIUM CHLORIDE 0.9% 1,000 ML IV SCH ×2 (05:03→21:30)
[2022-04-15] MEDS: HYDROcodone/APAP 15 ML SOLUTION PO PRN (05:06)
[2022-04-15 07:57] LABS: HCT 34.2 % (39.0-53.0); Hypochromasia Slight; MCH 30.3 pg (25.0-35.0); MCHC 32.1 g/dL (31.0-37.0); MCV 94.1 fL (80.0-100.0); Mean Platelet Volume 7.9; Platelet Count 142 k/uL (150-450); RBC 3.63 m/uL (4.30-5.90); RDW 15.1 % (11.5-15.5); WBC 3.3 k/uL (3.8-10.6)
[2022-04-15 08:24] LABS: African American GFR (CKD) >90 (>60 ml/min/1.73 sqM); Anion Gap 7 mmol/L; Blood Urea Nitrogen 9 mg/dL (9-20); Calcium 7.7 mg/dL (8.4-10.2); Carbon Dioxide 26 mmol/L (22-30); Chloride 102 mmol/L (98-107); Glucose 136 mg/dL (74-99); Non-African American GFR(CKD) >90 (>60 ml/min/1.73 sqM); Sodium 135 mmol/L (137-145)
[2022-04-15 08:28] LABS: Potassium 4.2 mmol/L (3.5-5.1)
[2022-04-15] MEDS: PIPERACILLIN-TAZOBACTAM 3.375 GM in SODIUM CHLORIDE 0.9% 100 ML IVPB SCH ×3 (09:09→23:31)
[2022-04-15] MEDS: ENOXAPARIN 40 MG/0.4 ML SYRINGE SQ SCH (09:20)
--- NOTE | 2022-04-15 11:02 | P.PN ---
Subjective Progress Note Date: 04/15/22 Principal diagnosis: Acute on chronic hypoxic respiratory failure suspect sepsis, and septic shock. 21-year-old male with past medical history of brain tumor, dysphasia with trach and PEG who presents emergency department with productive cough. States he's had an increased amount of sputum production, cough and shortness of breath with fever that started yesterday. He was hospitalized a few months ago with similar complaint and ended up having pneumonia. He denies any sick contacts and also admits to generalized myalgias. This patient is known to me. The care of his h ospitalization. At that time, the patient had pneumonia with a combination of gram-negative bacteria including pseudomonas and strep. The patient was treated and the patient was discharged home and the patient is coming back with some increased sputum production and increased shortness of breath. No headache. No change in mental status. No nausea or vomiting. He is not eating any receiving enteral feeding for nutritional support. The patient is currently on room air oxygen. Patient has a white cell count of 3.3 with hemoglobin of 12.8 and the platelet count of 136. BMI of 0.6 and a sodium level is 138. The chest x-ray showing some atelectatic changes in lung bases. Question another . The left lung base was also seen. This is likely inflammatory. Patient has no specific complaints for now. He denies having any aspiration. Patient was reevaluated today. On 04/14/2022, patient does not seem to be doing well, he is hypotensive and having intermittent episodes of fever. Hence I recommended transferring the patient to the ICU. Patient is already on antibiotics in the form of Zosyn, I'm adding vancomycin, and I'm recommending referral to the ICU and referral to infectious disease, as well as referral to neurology. Patient will likely need to be placed on norepinephrine, he received already 2 L of IV fluid boluses, and his blood pressure remains marginal. Patient is also complaining of headaches. Remains on trach collar, and his O2 requirement seems to be going up Patient was reevaluated today on 04/15/22, patient remains in the ICU, I transferred the patient to ICU yesterday. Remains on trach collar at FiO2 at 40%. IV fluid 0.9 normal saline at 75 mL per hour, patient received significant amount of fluid boluses yesterday. He is off norepinephrine this morning. Remains on vancomycin and Zosyn, cultures are pending and patient is yet to be seen by infectious disease on consultation. I'll up chest x-ray this morning was ordered. And I'm suspecting that we may be dealing with pneumonia. Patient had previous history of Pseudomonas pneumonia and he is now on Zosyn and vancomycin empirically. Sputum cultures are pending, blood cultures show staph epidermidis./Contaminant. Serum cortisol is pending. Patient is feeling better today compared to yesterday. And again he seems to be more hemodynamically stable this morning off norepinephrine. WBC count is 3.3 hemoglobin is 11 and electrodes are normal. Profile is normal Objective - Vital Signs Vital signs: Vital Signs Temp 98.4 F 04/15/22 08:00 Pulse 80 04/15/22 10:00 Resp 15 04/15/22 10:00 BP 89/53 04/15/22 10:00 Pulse Ox 97 04/15/22 10:00 FiO2 40 04/15/22 07:31 Intake & Output 04/14/22 04/15/22 04/15/22 18:59 06:59 18:59 Intake Total 1676.012 869.298 Output Total 1200 1575 Balance -1200 101.012 869.298 Weight 56.699 kg 67.4 kg Intake: IV 600 650 Piperacillin-Tazobactam 3 100 .375 gm In Sodium Chloride 0.9% 100 ml @ 25 mls/hr IVPB Q8HR [facility] Rx# :[id number] Sodium Chloride 0.9% 1, 600 300 000 ml @ 75 mls/hr IV . [id number] [facility] Rx#:[id number] Vancomycin 1,000 mg In 250 Sodium Chloride 0.9% 250 ml @ 125 mls/hr IVPB Q8HR [facility] Rx#:[id number] Intake, IV Titration 436.012 19.298 Amount Norepinephrine 4 mg In 86.012 19.298 Sodium Chloride 0.9% 250 ml @ 0.05 MCG/KG/MIN 10. 801 mls/hr IV .[id number] [facility] Rx#:[id number] Piperacillin-Tazobactam 3 100 .375 gm In Sodium Chloride 0.9% 100 ml @ 25 mls/hr IVPB Q8HR [facility] Rx# :[id number] Vancomycin 1,000 mg In 250 Sodium Chloride 0.9% 250 ml @ 125 mls/hr IVPB Q8HR [facility] Rx#:[id number] Oral 150 Tube Feeding 400 50 Other 240 Output: Urine 1200 1575 Other: Voiding Method Urinal Urinal # Voids 1 0 - Exam Physical Exam: Revealed a 21-year-old male in no distress on trach collar. Head: Atraumatic, normocephalic. HEENT:[Neck is supple.] [No neck masses.] [No thyromegaly.] [No JVD.] Chest: [Diffuse rhonchi bilaterally.] Some wheezing also noted bilaterally. Cardiac Exam: [Normal S1 and S2, no S3 gallop, no murmur.] Abdomen: [Soft, nontender, no megaly, no rebound, no guarding, normal bowel sounds.] Extremities: [No clubbing, no edema, no cyanosis.] Neurological Exam: [No focal neurologic deficit.] Psychiatric: Normal mood affect and normal mental status examination. Skin: No rashes - Labs CBC & Chem 7: 04/15/22 07:19 04/15/22 07:19 Labs: Abnormal Lab Results - Last 24 Hours (Table) 04/15/22 04/15/22 Range/Units 07:19 07:19 WBC 3.3 L (3.8-10.6) k/uL RBC 3.63 L (4.30-5.90) m/uL Hgb 11.0 L (13.0-17.5) gm/dL Hct 34.2 L (39.0-53.0) % Plt Count 142 L (150-450) k/uL Sodium 135 L (137-145) mmol/L Creatinine 0.50 L (0.66-1.25) mg/dL Glucose 136 H (74-99) mg/dL Calcium 7.7 L (8.4-10.2) mg/dL Microbiology - Last 24 Hours (Table) 04/12/22 23:08 Blood Culture Gram Stain - Final Blood Blood Culture - Final Coagulase Negative Staph 04/12/22 23:23 Blood Culture - Preliminary Blood No Growth after 48 hours Assessment and Plan Assessment: Impression: Suspect sepsis and possible septic shock. Suspect pneumonia, patient had previous history of Pseudomonas and streptococcal pneumonia History of brain tumor. History of tracheostomy and respiratory failure. Recommendation: Continue to monitor in the ICU for now. Continue antibiotics and brought of the spectrum, add vancomycin to Zosyn. Infectious disease to evaluate the patient Continue fluids Discontinue norepinephrine. We will continue to follow while in the ICU. Time with Patient: Less than 30
[2022-04-15] MEDS ORDERED: VANCOMYCIN 1,250 MG in SODIUM CHLORIDE 0.9% 250 ML IVPB SCH (16:00)
[2022-04-15] MEDS: HYDROmorphone 0.5 MG/0.5 ML SYRINGE IVP PRN ×2 (18:21→21:29)
[2022-04-15] MEDS: NOREPINEPHRINE 4 MG in SODIUM CHLORIDE 0.9% 250 ML IV SCH (21:30)
--- NOTE | 2022-04-15 22:34 | P.CONS ---
History of Present Illness - Reason for Consult Consult date: 04/15/22 - History of Present Illness Patient is a 21-year-old -Citizen Of [place] male with a past medical history significant for brain tumor in this patient who did have a chronic trach and PEG, presenting to the hospital presented to hospital 3 days ago for evaluation of increasing shortness of breath cough symptoms started the day before presentation to the hospital patient complaining of generalized weakness no energy he did have a cough which is moderate intensity with occasional yellowish sputum no hemoptysis denies having any pleuritic chest pain. Denies any nausea no vomiting no abdominal pain or any diarrhea patient on presentation to the hospital did have a fever of 102.1 F patient did have leukopenia as well as lymphopenia kidney function has been normal liver exams are normal urine has been negative influenza and COVID testing was negative patient did have a chest x-ray mild atelectasis lung bases similar to old exam patient did have blood cultures drawn growing gram-positive cocci patient is currently on vancomycin and Zosyn infectious disease was consulted for further management of antibiotic therapy Past Medical History Past Medical History: Cancer Additional Past Medical History / Comment(s): brain cancer, tracheostomy History of Any Multi-Drug Resistant Organisms: None Reported Past Surgical History: No Surgical Hx Reported Additional Past Surgical History / Comment(s): brain surgery Past Anesthesia/Blood Transfusion Reactions: No Reported Reaction Past Psychological History: ADD/ADHD Smoking Status: Current some day smoker Past Alcohol Use History: None Reported Past Drug Use History: None Reported, Marijuana - Past Family History Father History Unknown: Yes Medications and Allergies Home Medications Medication Instructions Recorded Confirmed Type Glycopyrrolate 1 mg PEG/G-TUBE TID PRN 02/22/22 04/13/22 History Docusate Oral Soln [Colace Oral 100 mg PEG/G-TUBE DAILY 04/13/22 04/13/22 History Soln] Allergies Allergy/AdvReac Type Severity Reaction Status Date / Time No Known Allergies Allergy Verified 04/13/22 09:15 Physical Exam Vitals: Vital Signs Temp Pulse Pulse Pulse Resp BP Pulse Ox 04/15/22 11:45 99/54 04/15/22 11:30 99/51 04/15/22 11:15 103/63 04/15/22 11:00 99/73 97 04/15/22 10:45 110/60 09/07/22 10:30 102/61 04/15/22 10:00 80 15 89/53 97 04/15/22 09:30 84/52 04/15/22 09:15 86/52 04/15/22 09:00 100/68 96 04/15/22 08:45 101/72 04/15/22 08:30 87/65 04/15/22 08:15 101/58 04/15/22 08:00 98.4 F 99/58 04/15/22 07:31 04/15/22 07:00 93 20 85/46 95 04/15/22 06:00 115 H 22 100/58 90 L 04/15/22 05:00 98 99/71 91 L 04/15/22 04:00 98.1 F 87 20 112/88 97 04/15/22 03:00 79 22 109/76 91 L 04/15/22 02:00 92 22 115/68 90 L 04/15/22 01:00 86 18 100/49 91 L 04/15/22 00:00 98.4 F 87 16 112/78 91 L 04/14/22 23:00 16 96/54 91 L 04/14/22 20:00 98.3 F 100 20 104/54 95 FiO2 04/15/22 11:45 04/15/22 11:30 04/15/22 11:15 04/15/22 11:00 04/15/22 10:45 04/15/22 10:30 04/15/22 10:00 04/15/22 09:30 04/15/22 09:15 04/15/22 09:00 04/15/22 08:45 04/15/22 08:30 04/15/22 08:15 04/15/22 08:00 04/15/22 07:31 40 04/15/22 07:00 04/15/22 06:00 04/15/22 05:00 04/15/22 04:00 04/15/22 03:00 04/15/22 02:00 04/15/22 01:00 04/15/22 00:00 04/14/22 23:00 04/14/22 20:00 Intake and Output 04/14/22 04/15/22 04/15/22 22:59 06:59 14:59 Intake Total 1676.012 994.298 Output Total 1575 475 Balance 101.012 519.298 Intake: IV 600 725 Piperacillin-Tazobactam 3 100 .375 gm In Sodium Chloride 0.9% 100 ml @ 25 mls/hr IVPB Q8HR [facility] Rx# :[id number] Sodium Chloride 0.9% 1, 600 375 000 ml @ 75 mls/hr IV . [id number] [facility] Rx#:[id number] Vancomycin 1,000 mg In 250 Sodium Chloride 0.9% 250 ml @ 125 mls/hr IVPB Q8HR [facility] Rx#:[id number] Intake, IV Titration 436.012 19.298 Amount Norepinephrine 4 mg In 86.012 19.298 Sodium Chloride 0.9% 250 ml @ 0.05 MCG/KG/MIN 10. 801 mls/hr IV .[id number] [facility] Rx#:[id number] Piperacillin-Tazobactam 3 100 .375 gm In Sodium Chloride 0.9% 100 ml @ 25 mls/hr IVPB Q8HR [facility] Rx# :[id number] Vancomycin 1,000 mg In 250 Sodium Chloride 0.9% 250 ml @ 125 mls/hr IVPB Q8HR [facility] Rx#:[id number] Oral 200 Tube Feeding 400 50 Other 240 Output: Urine 1575 475 Other: Voiding Method Urinal Urinal # Voids 1 1 Weight 67.4 kg Results CBC & Chem 7: 04/15/22 07:19 04/15/22 07:19 Labs: Abnormal Lab Results - Last 24 Hours (Table) 04/15/22 04/15/22 Range/Units 07:19 07:19 WBC 3.3 L (3.8-10.6) k/uL RBC 3.63 L (4.30-5.90) m/uL Hgb 11.0 L (13.0-17.5) gm/dL Hct 34.2 L (39.0-53.0) % Plt Count 142 L (150-450) k/uL Sodium 135 L (137-145) mmol/L Creatinine 0.50 L (0.66-1.25) mg/dL Glucose 136 H (74-99) mg/dL Calcium 7.7 L (8.4-10.2) mg/dL Microbiology - Last 24 Hours (Table) 04/12/22 23:08 Blood Culture Gram Stain - Final Blood Blood Culture - Final Coagulase Negative Staph 04/12/22 23:23 Blood Culture - Preliminary Blood No Growth after 48 hours Assessment and Plan Plan: 1patient presented to hospital with sepsis patient did have a fever leukopenia source likely pneumonia with predominantly respiratory symptoms of increasing shortness of breath and cough possible gram-negative. 2 Positive blood culture with gram-positive cocci staph epi likely skin contamination patient has no clinical disease to go along with it. 3continue with the Zosyn however discontinue vancomycin to decrease risk of nephrotoxicity. 4obtain sputum for gram stain and culture. We will follow on clinical condition and cultures to further adjust medication if needed Thank you for this consultation will follow this patient along with you Time with Patient: Greater than 30
--- NOTE | 2022-04-15 22:40 | P.PN ---
Subjective Progress Note Date: 04/14/22 21-year-old male with history of brain tumor came in with Complaints of Fever Shortness of Breath and Increased Secretions and Thick Secretions from the Tracheostomy Patient Has a Tracheostomy for Many Years. Patient Was Recently Admitted and Treated for Pneumonia and Sputum at That Time Showed Pseudomonas and Streptococci. Patient Was Started on Zosyn Again Chest X-Ray Showing Some Atelectatic Changes. Patient Denied Any Dysuria Denied Any Nausea Vomiting.. 04/14/2022 Patient is in the medical floor. Awake alert and oriented. Currently on trach collar and oxygen requirement is increasing. Continues to be hypotensive and has been febrile with T-max 103.1. Patient continues to be tachycardic and hypotensive. Patient was given IV fluid bolus and is being transferred to MICU for possible pressor support. Continued on antibiotics in the form of Zosyn and vancomycin was added. Denied any complaints of chest pain. No worsening shortness of breath. Complains of headache. No nausea vomiting abdominal pain or diarrhea. Laboratory data showed WBC 4.01 hemoglobin 10.9 and platelets 150 Sodium 134 potassium 4.5 chloride 100 bicarb is 13.2 BUN 12.20 creatinine 0.7 and blood sugar is 115 and calcium 8.1. UA negative for infection and coronavirus, influenza a and B PCR negative. Pulmonary is on board. Current medications reviewed. Objective - Vital Signs Vital signs: Vital Signs Temp 98.3 F 04/14/22 20:00 Pulse 100 04/14/22 20:00 Resp 16 04/14/22 23:00 BP 96/54 04/14/22 23:00 Pulse Ox 91 L 04/14/22 23:00 FiO2 40 04/14/22 05:02 Intake & Output 04/14/22 04/14/22 04/15/22 06:59 18:59 06:59 Intake Total 240 125 Output Total 600 1200 300 Balance -360 -1200 -175 Weight 56.699 kg Intake: IV 75 Sodium Chloride 0.9% 1, 75 000 ml @ 75 mls/hr IV . [id number] [facility] Rx#:[id number] Tube Feeding 240 50 Output: Urine 600 1200 300 Other: Voiding Method Urinal Urinal Urinal # Voids 0 1 - Exam PHYSICAL EXAMINATION: Patient is lying in the bed comfortably, no acute distress, awake alert and oriented.. HEENT: Normocephalic. Neck is supple. Pupils reactive. Nostrils clear. Oral cavity is moist. Neck reveals no JVD, carotid bruits, or thyromegaly. CHEST EXAMINATION: Patient is on trach collar.. Symmetrical expansion. Bilateral coarse sounds. Minimal rhonchi. CARDIAC: Normal S1, S2 with no gallops. No murmurs ABDOMEN: Soft. Bowel sounds present. Nontender. No organomegaly. No abdominal bruits. Extremities: reveal no edema. No clubbing or cyanosis Neurologically awake, alert, oriented x3 with well-coordinated movements. No focal deficits noted Skin: No rash or skin lesions. Psychiatric: Coperative. Nonsuicidal, Musculoskeletal: No joint swelling or deformity. Normal range of motion. - Labs CBC & Chem 7: 04/15/22 07:19 04/15/22 07:19 Labs: Abnormal Lab Results - Last 24 Hours (Table) 04/14/22 04/14/22 Range/Units 06:39 06:39 WBC 4.01 L (4.50-10.00) X 10*3/uL RBC 3.64 L (4.40-5.60) X 10*6/uL Hgb 10.9 L (13.0-17.0) g/dL Hct 34.0 L (39.6-50.0) % RDW 15.0 H (11.5-14.5) % Carbon Dioxide 30.2 H (20.0-27.5) mmol/L Anion Gap 4.80 L (10.00-18.00) mmol/L Glucose 115 H (70-110) mg/dL Calcium 8.1 L (8.7-10.3) mg/dL Microbiology - Last 24 Hours (Table) 04/12/22 23:08 Blood Culture Gram Stain - Preliminary Blood Blood Culture - Preliminary Coagulase Negative Staph 04/12/22 23:23 Blood Culture - Preliminary Blood No Growth after 24 hours 04/12/22 23:08 Blood Culture - Final Blood Assessment and Plan Assessment: Assessment and plan -Acute hypoxic respiratory failure possibly secondary pneumonia Sepsis/septic shock requiring pressor support History of tracheostomy -History of brain cancer status post surgical excision and chemoradiation with the tracheostomy and PEG tube -Continued nicotine use: Counseling was provided DVT prophylaxis: Lovenox Plan: Patient will be current on IV fluid bolus and antibiotics Zosyn and vancomycin was added. Patient will be transferred to MICU and for possible pressor support. Follow-up culture reports. Pulmonary and ID is on board. Continue to follow closely. Prognosis is guarded at this time. Time with Patient: Greater than 30
--- NOTE | 2022-04-15 22:42 | P.PN ---
Subjective Progress Note Date: 04/15/22 21-year-old male with history of brain tumor came in with Complaints of Fever Shortness of Breath and Increased Secretions and Thick Secretions from the Tracheostomy Patient Has a Tracheostomy for Many Years. Patient Was Recently Admitted and Treated for Pneumonia and Sputum at That Time Showed Pseudomonas and Streptococci. Patient Was Started on Zosyn Again Chest X-Ray Showing Some Atelectatic Changes. Patient Denied Any Dysuria Denied Any Nausea Vomiting.. 04/14/2022 Patient is in the medical floor. Awake alert and oriented. Currently on trach collar and oxygen requirement is increasing. Continues to be hypotensive and has been febrile with T-max 103.1. Patient continues to be tachycardic and hypotensive. Patient was given IV fluid bolus and is being transferred to MICU for possible pressor support. Continued on antibiotics in the form of Zosyn and vancomycin was added. Denied any complaints of chest pain. No worsening shortness of breath. Complains of headache. No nausea vomiting abdominal pain or diarrhea. Laboratory data showed WBC 4.01 hemoglobin 10.9 and platelets 150 Sodium 134 potassium 4.5 chloride 100 bicarb is 13.2 BUN 12.20 creatinine 0.7 and blood sugar is 115 and calcium 8.1. UA negative for infection and coronavirus, influenza a and B PCR negative. Pulmonary is on board. 04/15/2020 Patient is currently in the MICU. Awake alert and oriented x3. Remains on oxygen via trach collar. Blood pressure did improve and is off pressor support this morning. Patient denies any chest pain. Cough without any sputum production. Currently on tube feeding and antibiotics in the form of vancomycin and Zosyn. Patient is also on IV hydration with normal saline. Laboratory showed WBC 3.3 hemoglobin 11.0 and platelets 142, sodium 135 potassium 4.2 chloride 102 bicarb is 26 BUN 9 and creatinine 0.5 and calcium 7.7. Blood cultures showed coagulase-negative staph. Pulmonary and ID is on board. Current medications reviewed. Objective - Vital Signs Vital signs: Vital Signs Temp 98.4 F 04/15/22 08:00 Pulse 80 04/15/22 10:00 Resp 15 04/15/22 10:00 BP 99/54 04/15/22 11:45 Pulse Ox 97 04/15/22 11:00 FiO2 40 04/15/22 07:31 Intake & Output 04/14/22 04/15/22 04/15/22 18:59 06:59 18:59 Intake Total 4296.907 4426.298 Output Total 1200 1575 850 Balance -1200 101.012 269.298 Weight 56.699 kg 67.4 kg Intake: IV 600 800 Piperacillin-Tazobactam 3 100 .375 gm In Sodium Chloride 0.9% 100 ml @ 25 mls/hr IVPB Q8HR [facility] Rx# :[id number] Sodium Chloride 0.9% 1, 600 450 000 ml @ 75 mls/hr IV . [id number] [facility] Rx#:[id number] Vancomycin 1,000 mg In 250 Sodium Chloride 0.9% 250 ml @ 125 mls/hr IVPB Q8HR [facility] Rx#:[id number] Intake, IV Titration 436.012 19.298 Amount Norepinephrine 4 mg In 86.012 19.298 Sodium Chloride 0.9% 250 ml @ 0.05 MCG/KG/MIN 10. 801 mls/hr IV .[id number] [facility] Rx#:[id number] Piperacillin-Tazobactam 3 100 .375 gm In Sodium Chloride 0.9% 100 ml @ 25 mls/hr IVPB Q8HR [facility] Rx# :[id number] Vancomycin 1,000 mg In 250 Sodium Chloride 0.9% 250 ml @ 125 mls/hr IVPB Q8HR [facility] Rx#:[id number] Oral 200 Tube Feeding 400 100 Other 240 Output: Urine 1200 1575 850 Other: Voiding Method Urinal Urinal Urinal # Voids 1 1 - Exam PHYSICAL EXAMINATION: Patient is lying in the bed comfortably, no acute distress, awake alert and oriented.. HEENT: Normocephalic. Neck is supple. Pupils reactive. Nostrils clear. Oral cavity is moist. Neck reveals no JVD, carotid bruits, or thyromegaly. CHEST EXAMINATION: Patient is on trach collar.. Symmetrical expansion. Bilate ral coarse sounds. Minimal rhonchi. CARDIAC: Normal S1, S2 with no gallops. No murmurs ABDOMEN: Soft. Bowel sounds present. Nontender. No organomegaly. No abdominal bruits. Extremities: reveal no edema. No clubbing or cyanosis Neurologically awake, alert, oriented x3 with well-coordinated movements. No focal deficits noted Skin: No rash or skin lesions. Psychiatric: Coperative. Nonsuicidal, Musculoskeletal: No joint swelling or deformity. Normal range of motion. - Labs CBC & Chem 7: 04/15/22 07:19 04/15/22 07:19 Labs: Abnormal Lab Results - Last 24 Hours (Table) 04/15/22 04/15/22 Range/Units 07:19 07:19 WBC 3.3 L (3.8-10.6) k/uL RBC 3.63 L (4.30-5.90) m/uL Hgb 11.0 L (13.0-17.5) gm/dL Hct 34.2 L (39.0-53.0) % Plt Count 142 L (150-450) k/uL Sodium 135 L (137-145) mmol/L Creatinine 0.50 L (0.66-1.25) mg/dL Glucose 136 H (74-99) mg/dL Calcium 7.7 L (8.4-10.2) mg/dL Microbiology - Last 24 Hours (Table) 04/12/22 23:08 Blood Culture Gram Stain - Final Blood Blood Culture - Final Coagulase Negative Staph 04/12/22 23:23 Blood Culture - Preliminary Blood No Growth after 48 hours Assessment and Plan Assessment: Assessment and plan -Acute hypoxic respiratory failure possibly secondary pneumonia Sepsis/septic shock requiring pressor support History of tracheostomy -History of brain cancer status post surgical excision and chemoradiation with the tracheostomy and PEG tube -Continued nicotine use: Counseling was provided DVT prophylaxis: Lovenox Plan: Patient will be continued on IV hydration and antibiotics in the form of vancomycin and Zosyn. Follow-up final blood cultures. Continue with oxygen supplementation via trach collar. Currently off pressor support. Repeat CBC and BMP tomorrow. Pulmonary and ID is on board. Prognosis is guarded. Time with Patient: Greater than 30
[2022-04-16] MEDS: HYDROmorphone 0.5 MG/0.5 ML SYRINGE IVP PRN ×4 (03:39→21:03)
[2022-04-16] MEDS ORDERED: IPRATROPIUM-ALBUTEROL 3 ML NEB INHALATION PRN (04:29)
[2022-04-16] MEDS: KETOROLAC 15 MG/ML 1 ML VIAL IVP SCH ×3 (05:05→17:03)
[2022-04-16] MEDS ORDERED: VANCOMYCIN TROUGH DUE 1 EACH MISC MISCELLANE ONE (07:00)
[2022-04-16 07:49] LABS: Basophils % (A) 0 %; Eosinophils % (A) 0 %; HCT 36.3 % (39.0-53.0); HGB 11.7 gm/dL (13.0-17.5); Hypochromasia Slight; Lymphocytes # (A) 0.8 k/uL (1.0-4.8); Lymphocytes % (A) 20 %; MCH 30.7 pg (25.0-35.0); MCHC 32.2 g/dL (31.0-37.0); MCV 95.2 fL (80.0-100.0); Mean Platelet Volume 7.7; Monocytes # (A) 0.2 k/uL (0-1.0); Monocytes % (A) 4 %; Neutrophils # (A) 2.8 k/uL (1.3-7.7); Neutrophils % (A) 73 %; Platelet Count 149 k/uL (150-450); RBC 3.81 m/uL (4.30-5.90); RDW 15.3 % (11.5-15.5); WBC 3.9 k/uL (3.8-10.6)
[2022-04-16 08:05] LABS: African American GFR (CKD) >90 (>60 ml/min/1.73 sqM); Anion Gap 7 mmol/L; Blood Urea Nitrogen 9 mg/dL (9-20); Calcium 8.2 mg/dL (8.4-10.2); Carbon Dioxide 33 mmol/L (22-30); Chloride 98 mmol/L (98-107); Glucose 89 mg/dL (74-99); Non-African American GFR(CKD) >90 (>60 ml/min/1.73 sqM); Potassium 3.7 mmol/L (3.5-5.1); Sodium 138 mmol/L (137-145)
[2022-04-16] MEDS: IPRATROPIUM-ALBUTEROL 3 ML NEB INHALATION SCH ×3 (08:13→19:13)
[2022-04-16] MEDS: ENOXAPARIN 40 MG/0.4 ML SYRINGE SQ SCH (08:36)
[2022-04-16] MEDS: PIPERACILLIN-TAZOBACTAM 3.375 GM in SODIUM CHLORIDE 0.9% 100 ML IVPB SCH ×3 (08:36→23:15)
[2022-04-16] MEDS: SODIUM CHLORIDE 0.9% 1,000 ML IV SCH (08:37)
--- NOTE | 2022-04-16 09:35 | XR ---
EXAM: XR Chest, 1 View CLINICAL HISTORY: Pneumonia TECHNIQUE: Frontal view of the chest. COMPARISON: No relevant prior studies available. FINDINGS: Lungs: There is volume loss in the left hemithorax, with atelectasis or consolidation of the left lower lobe. Tracheostomy tube in place with tip well-positioned approximate 7 cm above the kiah. Pleural space: No evidence of pneumothorax. Mild blunting of the left lateral costophrenic angle suggestive of small pleural effusion or left basilar scarring. Heart: Normal cardiac silhouette. Mediastinum: No mediastinal widening. Bones/joints: No acute osseous abnormality. IMPRESSION: Atelectasis/consolidation of the left lower lobe, with possible underlying pneumonia. Tracheostomy tube well positioned.
--- NOTE | 2022-04-16 12:29 | P.PN ---
Subjective Progress Note Date: 04/16/22 Principal diagnosis: Acute on chronic hypoxic respiratory failure suspect sepsis, and septic shock. 21-year-old male with past medical history of brain tumor, dysphasia with trach and PEG who presents emergency department with productive cough. States he's had an increased amount of sputum production, cough and shortness of breath with fever that started yesterday. He was hospitalized a few months ago with similar complaint and ended up having pneumonia. He denies any sick contacts and also admits to generalized myalgias. This patient is known to me. The care of his h ospitalization. At that time, the patient had pneumonia with a combination of gram-negative bacteria including pseudomonas and strep. The patient was treated and the patient was discharged home and the patient is coming back with some increased sputum production and increased shortness of breath. No headache. No change in mental status. No nausea or vomiting. He is not eating any receiving enteral feeding for nutritional support. The patient is currently on room air oxygen. Patient has a white cell count of 3.3 with hemoglobin of 12.8 and the platelet count of 136. BMI of 0.6 and a sodium level is 138. The chest x-ray showing some atelectatic changes in lung bases. Question another . The left lung base was also seen. This is likely inflammatory. Patient has no specific complaints for now. He denies having any aspiration. Patient was reevaluated today. On 04/14/2022, patient does not seem to be doing well, he is hypotensive and having intermittent episodes of fever. Hence I recommended transferring the patient to the ICU. Patient is already on antibiotics in the form of Zosyn, I'm adding vancomycin, and I'm recommending referral to the ICU and referral to infectious disease, as well as referral to neurology. Patient will likely need to be placed on norepinephrine, he received already 2 L of IV fluid boluses, and his blood pressure remains marginal. Patient is also complaining of headaches. Remains on trach collar, and his O2 requirement seems to be going up Patient was reevaluated today on 04/15/22, patient remains in the ICU, I transferred the patient to ICU yesterday. Remains on trach collar at FiO2 at 40%. IV fluid 0.9 normal saline at 75 mL per hour, patient received significant amount of fluid boluses yesterday. He is off norepinephrine this morning. Remains on vancomycin and Zosyn, cultures are pending and patient is yet to be seen by infectious disease on consultation. I'll up chest x-ray this morning was ordered. And I'm suspecting that we may be dealing with pneumonia. Patient had previous history of Pseudomonas pneumonia and he is now on Zosyn and vancomycin empirically. Sputum cultures are pending, blood cultures show staph epidermidis./Contaminant. Serum cortisol is pending. Patient is feeling better today compared to yesterday. And again he seems to be more hemodynamically stable this morning off norepinephrine. WBC count is 3.3 hemoglobin is 11 and electrodes are normal. Profile is normal Reevaluated today on 04/16/22, patient remains in the ICU, remains on trach collar at 40%, he is off norepinephrine, remains on antibiotics in the form of vancomycin and Zosyn chest x-ray today is showing left lower lobe pneumonia cultures of the sputum are pending. Patient is receiving enteral feeding via PEG tube, is also receiving IV fluid at 75 mL/h, trach collar at 40%. Clinically the patient is feeling better. WBC count is 3.9 hemoglobin 11.7 and electrolytes are normal renal profile is normal Objective - Vital Signs Vital signs: Vital Signs Temp 98.1 F 04/16/22 08:00 Pulse 83 04/16/22 10:30 Resp 18 04/16/22 10:00 BP 99/81 04/16/22 10:30 Pulse Ox 98 04/16/22 10:30 FiO2 40 04/16/22 07:53 Intake & Output 04/15/22 04/16/22 04/16/22 18:59 06:59 18:59 Intake Total 2241.906 2160 400 Output Total 2075 1125 725 Balance 635.662 2332 -325 Weight 67.4 kg Intake: IV 1600 975 250 Piperacillin-Tazobactam 3 200 100 .375 gm In Sodium Chloride 0.9% 100 ml @ 25 mls/hr IVPB Q8HR [facility] Rx# :[id number] Sodium Chloride 0.9% 1, 900 975 150 000 ml @ 75 mls/hr IV . [id number] [facility] Rx#:[id number] Vancomycin 1,000 mg In 500 Sodium Chloride 0.9% 250 ml @ 125 mls/hr IVPB Q8HR [facility] Rx#:[id number] Intake, IV Titration 41.906 175 50 Amount Norepinephrine 4 mg In 41.906 Sodium Chloride 0.9% 250 ml @ 0.05 MCG/KG/MIN 10. 801 mls/hr IV .[id number] [facility] Rx#:[id number] Piperacillin-Tazobactam 3 175 50 .375 gm In Sodium Chloride 0.9% 100 ml @ 25 mls/hr IVPB Q8HR [facility] Rx# :[id number] Oral 100 Tube Feeding 500 650 100 Other 360 Output: Urine 2075 1125 725 Other: Voiding Method Urinal Urinal Urinal # Voids 1 0 1 - Exam Physical Exam: Revealed a 21-year-old male in no distress on trach collar. Head: Atraumatic, normocephalic. HEENT:[Neck is supple.] [No neck masses.] [No thyromegaly.] [No JVD.] Chest: [Diffuse rhonchi bilaterally.] Some wheezing also noted bilaterally. Cardiac Exam: [Normal S1 and S2, no S3 gallop, no murmur.] Abdomen: [Soft, nontender, no megaly, no rebound, no guarding, normal bowel sounds.] PEG tube is intact Extremities: [No clubbing, no edema, no cyanosis.] Neurological Exam: [No focal neurologic deficit.] Psychiatric: Normal mood affect and normal mental status examination. Skin: No rashes - Labs CBC & Chem 7: 04/16/22 07:13 04/16/22 07:13 Labs: Abnormal Lab Results - Last 24 Hours (Table) 04/16/22 04/16/22 Range/Units 07:13 07:13 RBC 3.81 L (4.30-5.90) m/uL Hgb 11.7 L (13.0-17.5) gm/dL Hct 36.3 L (39.0-53.0) % Plt Count 149 L (150-450) k/uL Lymphocytes # 0.8 L (1.0-4.8) k/uL Carbon Dioxide 33 H (22-30) mmol/L Creatinine 0.51 L (0.66-1.25) mg/dL Calcium 8.2 L (8.4-10.2) mg/dL Microbiology - Last 24 Hours (Table) 04/15/22 01:50 Sputum Culture - Preliminary Sputum 04/12/22 23:23 Blood Culture - Preliminary Blood No Growth after 72 hours 04/12/22 23:08 Blood Culture Gram Stain - Final Blood Blood Culture - Final Coagulase Negative Staph Assessment and Plan Assessment: Impression: Left lower lobe pneumonia, likely healthcare acquired pneumonia or even possibly hospital-acquired pneumonia Suspect sepsis and possible septic shock. Suspect pneumonia, patient had previous history of Pseudomonas and streptococcal pneumonia History of brain tumor. History of tracheostomy and respiratory failure. Recommendation: Continue antibiotics and adjust antibiotics based on the final culture of the sputum. Continue to monitor in the ICU for now. Continue nutritional support Continue GI and DVT prophylaxis Norepinephrine if needed presently off norepinephrine. Continue fluids We will continue to follow while in the ICU. Time with Patient: Less than 30
--- NOTE | 2022-04-16 16:29 | P.PN ---
Subjective Progress Note Date: 04/16/22 Principal diagnosis: Pneumonia and bacteremia Patient is a 21-year-old -[place] male with a past medical he significant for spina bifida on chronic trach and PEG presented to hospital with increasing shortness of breath concerning for pneumonia he also have a positive blood culture with coagulase-negative staph likely skin contamination. On today's evaluation that is 04/16/2022 the patient remains to be afebrile, the patient is breathing comfortably through the trach collar, the patient denies having any chest pain no worsening cough or sputum production tolerating his tube feed and no diarrhea reported Objective - Vital Signs Vital signs: Vital Signs Temp 98.1 F 04/16/22 08:00 Pulse 83 04/16/22 10:30 Resp 18 04/16/22 10:00 BP 99/81 04/16/22 10:30 Pulse Ox 98 04/16/22 10:30 FiO2 40 04/16/22 07:53 Intake & Output 04/15/22 04/16/22 04/16/22 18:59 06:59 18:59 Intake Total 2241.906 2160 400 Output Total 2075 1125 725 Balance 055.564 0633 -325 Weight 67.4 kg Intake: IV 1600 975 250 Piperacillin-Tazobactam 3 200 100 .375 gm In Sodium Chloride 0.9% 100 ml @ 25 mls/hr IVPB Q8HR [facility] Rx# :[id number] Sodium Chloride 0.9% 1, 900 975 150 000 ml @ 75 mls/hr IV . [id number] [facility] Rx#:[id number] Vancomycin 1,000 mg In 500 Sodium Chloride 0.9% 250 ml @ 125 mls/hr IVPB Q8HR [facility] Rx#:[id number] Intake, IV Titration 41.906 175 50 Amount Norepinephrine 4 mg In 41.906 Sodium Chloride 0.9% 250 ml @ 0.05 MCG/KG/MIN 10. 801 mls/hr IV .[id number] [facility] Rx#:[id number] Piperacillin-Tazobactam 3 175 50 .375 gm In Sodium Chloride 0.9% 100 ml @ 25 mls/hr IVPB Q8HR [facility] Rx# :[id number] Oral 100 Tube Feeding 500 650 100 Other 360 Output: Urine 2075 1125 725 Other: Voiding Method Urinal Urinal Urinal # Voids 1 0 1 - Exam GENERAL DESCRIPTION: Young male lying in bed, no distress. No tachypnea or accessory muscle of respiration use. LUNGS: Unlabored breathing. Decreased breath sound at the base HEART: S1, S2, regular rate and rhythm. No loud murmur ABDOMEN: Soft, no tenderness , guarding or rigidity, no organomegaly EXTREMITIES: No edema of feet. - Labs CBC & Chem 7: 04/16/22 07:13 04/16/22 07:13 Labs: Abnormal Lab Results - Last 24 Hours (Table) 04/16/22 04/16/22 Range/Units 07:13 07:13 RBC 3.81 L (4.30-5.90) m/uL Hgb 11.7 L (13.0-17.5) gm/dL Hct 36.3 L (39.0-53.0) % Plt Count 149 L (150-450) k/uL Lymphocytes # 0.8 L (1.0-4.8) k/uL Carbon Dioxide 33 H (22-30) mmol/L Creatinine 0.51 L (0.66-1.25) mg/dL Calcium 8.2 L (8.4-10.2) mg/dL Microbiology - Last 24 Hours (Table) 04/15/22 01:50 Sputum Culture - Preliminary Sputum 04/12/22 23:23 Blood Culture - Preliminary Blood No Growth after 72 hours 04/12/22 23:08 Blood Culture Gram Stain - Final Blood Blood Culture - Final Coagulase Negative Staph Assessment and Plan (1) CAP (community acquired pneumonia) Current Visit: Yes Status: Acute Code(s): J18.9 - PNEUMONIA, UNSPECIFIED ORGANISM SNOMED Code(s): 963831106 Plan: 1patient presented to hospital with sepsis patient did have a fever leukopenia source likely pneumonia with predominantly respiratory symptoms of increasing shortness of breath and cough possible gram-negative. 2 Positive blood culture with gram-positive cocci staph epi likely skin contamination patient has no clinical disease to go along with it. 3Sputum culture has been obtained and those are currently pending 4- Patient to continue with the Zosyn while waiting for the culture to finalize and monitor clinical course closely Time with Patient: Less than 30
[2022-04-16] MEDS ORDERED: Potassium Replacement Protocol 1 EACH MISC MISCELLANE PRN (16:46)
[2022-04-16] MEDS: POTASSIUM CHLORIDE 10 MEQ in WATER FOR INJECTION 1 100ML.BAG IVPB SCH ×2 (17:02→18:11)
[2022-04-16] MEDS: GLYCOPYRROLATE 1 MG TAB PEG/G-TUBE PRN (18:27)
--- NOTE | 2022-04-16 22:04 | XR ---
EXAMINATION TYPE: XR chest 1V portable DATE OF EXAM: 04/15/2022 CLINICAL HISTORY: PICC line placement. TECHNIQUE: Single AP portable upright view of the chest is obtained. COMPARISON: Chest x-ray from 3 days earlier FINDINGS: Current exam suboptimal as entire lung apices are not included. Tracheostomy tube is parti ally imaged. New Left-sided PICC line terminates in SVC. New small to tiny left pleural effusion. Ri ght lung remains clear. Cardiac silhouette size remains within normal limits. Retrocardiac opacity si lhouetting portion of left hemidiaphragm is slightly more prominent. No pneumothorax seen bilaterally . Visualized osseous structures are intact. IMPRESSION: As above. Worsening retrocardiac consolidation and/or atelectasis. New small to tiny lef t pleural effusion.
[2022-04-17] MEDS: ACETAMINOPHEN TAB 325 MG TAB PO PRN (00:02)
[2022-04-17] MEDS: HYDROmorphone 0.5 MG/0.5 ML SYRINGE IVP PRN ×5 (01:12→21:19)
[2022-04-17] MEDS: NOREPINEPHRINE 4 MG in SODIUM CHLORIDE 0.9% 250 ML IV SCH ×2 (01:30→16:41)
[2022-04-17] MEDS: KETOROLAC 15 MG/ML 1 ML VIAL IVP SCH ×5 (04:18→23:28)
[2022-04-17] MEDS: SODIUM CHLORIDE 0.9% 1,000 ML IV SCH ×2 (05:47→21:22)
[2022-04-17] MEDS: PIPERACILLIN-TAZOBACTAM 3.375 GM in SODIUM CHLORIDE 0.9% 100 ML IVPB SCH ×3 (07:40→23:34)
[2022-04-17] MEDS: IPRATROPIUM-ALBUTEROL 3 ML NEB INHALATION SCH ×4 (08:21→19:51)
[2022-04-17 08:27] LABS: ALT 18 U/L (4-49); AST 29 U/L (17-59); African American GFR (CKD) >90 (>60 ml/min/1.73 sqM); Albumin 3.2 g/dL (3.5-5.0); Alkaline Phosphatase 56 U/L (38-126); Anion Gap 9 mmol/L; Blood Urea Nitrogen 12 mg/dL (9-20); Calcium 8.4 mg/dL (8.4-10.2); Carbon Dioxide 31 mmol/L (22-30); Chloride 100 mmol/L (98-107); Glucose 121 mg/dL (74-99); Non-African American GFR(CKD) >90 (>60 ml/min/1.73 sqM); Potassium 4.2 mmol/L (3.5-5.1); Sodium 140 mmol/L (137-145); Total Bilirubin 0.2 mg/dL (0.2-1.3); Total Protein 5.7 g/dL (6.3-8.2)
[2022-04-17 08:39] LABS: HCT 36.5 % (39.0-53.0); HGB 11.7 gm/dL (13.0-17.5); Hypochromasia Slight; MCH 30.1 pg (25.0-35.0); MCHC 32.1 g/dL (31.0-37.0); MCV 93.8 fL (80.0-100.0); Mean Platelet Volume 8.1; Platelet Count 157 k/uL (150-450); RDW 14.9 % (11.5-15.5); WBC 2.9 k/uL (3.8-10.6)
[2022-04-17] MEDS: ENOXAPARIN 40 MG/0.4 ML SYRINGE SQ SCH (08:50)
[2022-04-17 10:46] LABS: Eosinophils # (M) 0.03 k/uL (0-0.7); Lymphocytes # (M) 0.73 k/uL (1.0-4.8); Monocytes # (M) 0.06 k/uL (0-1.0); Neutrophils # (M) 2.09 k/uL (1.3-7.7); Neutrophils % (M) 72 %; Nucleated Red Blood Cells 0 /100 WBC (0-0); Total Cells Counted 100
[2022-04-17] MEDS: methylPREDNISolone SOD SUCCI 40 MG/ML 1 ML VIAL IV SCH ×3 (11:44→23:37)
--- NOTE | 2022-04-17 12:20 | P.PN ---
Subjective Progress Note Date: 04/17/22 Principal diagnosis: Acute on chronic hypoxic respiratory failure suspect sepsis, and septic shock. 21-year-old male with past medical history of brain tumor, dysphasia with trach and PEG who presents emergency department with productive cough. States he's had an increased amount of sputum production, cough and shortness of breath with fever that started yesterday. He was hospitalized a few months ago with similar complaint and ended up having pneumonia. He denies any sick contacts and also admits to generalized myalgias. This patient is known to me. The care of his h ospitalization. At that time, the patient had pneumonia with a combination of gram-negative bacteria including pseudomonas and strep. The patient was treated and the patient was discharged home and the patient is coming back with some increased sputum production and increased shortness of breath. No headache. No change in mental status. No nausea or vomiting. He is not eating any receiving enteral feeding for nutritional support. The patient is currently on room air oxygen. Patient has a white cell count of 3.3 with hemoglobin of 12.8 and the platelet count of 136. BMI of 0.6 and a sodium level is 138. The chest x-ray showing some atelectatic changes in lung bases. Question another . The left lung base was also seen. This is likely inflammatory. Patient has no specific complaints for now. He denies having any aspiration. Patient was reevaluated today. On 04/14/2022, patient does not seem to be doing well, he is hypotensive and having intermittent episodes of fever. Hence I recommended transferring the patient to the ICU. Patient is already on antibiotics in the form of Zosyn, I'm adding vancomycin, and I'm recommending referral to the ICU and referral to infectious disease, as well as referral to neurology. Patient will likely need to be placed on norepinephrine, he received already 2 L of IV fluid boluses, and his blood pressure remains marginal. Patient is also complaining of headaches. Remains on trach collar, and his O2 requirement seems to be going up Patient was reevaluated today on 04/15/22, patient remains in the ICU, I transferred the patient to ICU yesterday. Remains on trach collar at FiO2 at 40%. IV fluid 0.9 normal saline at 75 mL per hour, patient received significant amount of fluid boluses yesterday. He is off norepinephrine this morning. Remains on vancomycin and Zosyn, cultures are pending and patient is yet to be seen by infectious disease on consultation. I'll up chest x-ray this morning was ordered. And I'm suspecting that we may be dealing with pneumonia. Patient had previous history of Pseudomonas pneumonia and he is now on Zosyn and vancomycin empirically. Sputum cultures are pending, blood cultures show staph epidermidis./Contaminant. Serum cortisol is pending. Patient is feeling better today compared to yesterday. And again he seems to be more hemodynamically stable this morning off norepinephrine. WBC count is 3.3 hemoglobin is 11 and electrodes are normal. Profile is normal Reevaluated today on 04/16/22, patient remains in the ICU, remains on trach collar at 40%, he is off norepinephrine, remains on antibiotics in the form of vancomycin and Zosyn chest x-ray today is showing left lower lobe pneumonia cultures of the sputum are pending. Patient is receiving enteral feeding via PEG tube, is also receiving IV fluid at 75 mL/h, trach collar at 40%. Clinically the patient is feeling better. WBC count is 3.9 hemoglobin 11.7 and electrolytes are normal renal profile is normal Reevaluated today on 04/27/22, patient remains in the ICU, remains on 40% trach collar he is now only on Zosyn, his sputum cultures have been nondiagnostic nonetheless the patient clearly has a left lower lobe infiltrate/pneumonia. Remains on Zosyn, he is afebrile. He is on enteral feeding via PEG tube, he is also on IV fluid 0.9 normal saline at 75 mL per hour. Continues to have scattered rhonchi especially on the left side. WBC count is 2.9 hemoglobin is 11.7. Electrolytes are normal renal profile is normal Objective - Vital Signs Vital signs: Vital Signs Temp 98.2 F 04/17/22 08:00 Pulse 67 04/17/22 09:00 Resp 28 H 04/17/22 09:00 BP 96/53 04/17/22 09:00 Pulse Ox 95 04/17/22 09:00 FiO2 40 04/17/22 08:20 Intake & Output 04/16/22 04/17/22 04/17/22 18:59 06:59 18:59 Intake Total 1600 1790 470 Output Total 2225 1075 700 Balance -625 715 -230 Weight 67.8 kg Intake: IV 1050 1100 250 Piperacillin-Tazobactam 3 200 100 25 .375 gm In Sodium Chloride 0.9% 100 ml @ 25 mls/hr IVPB Q8HR [facility] Rx# :[id number] Potassium Chloride 10 meq 100 100 In Water For Injection 1 100ml.bag @ 100 mls/hr IVPB Q1H [facility] Rx#: [id number] Sodium Chloride 0.9% 1, 750 900 225 000 ml @ 20 mls/hr IV . Q24H [facility] Rx#:[id number] Tube Feeding 550 450 100 Other 240 120 Output: Urine 2225 1075 700 Other: Voiding Method Urinal Urinal Urinal # Voids 1 - Exam Physical Exam: Revealed a 21-year-old male in no distress on trach collar. Head: Atraumatic, normocephalic. HEENT:[Neck is supple.] [No neck masses.] [No thyromegaly.] [No JVD.] Chest: Scattered rhonchi more so on the left side. And occasional wheezing Cardiac Exam: [Normal S1 and S2, no S3 gallop, no murmur.] Abdomen: [Soft, nontender, no megaly, no rebound, no guarding, normal bowel sounds.] PEG tube is intact Extremities: [No clubbing, no edema, no cyanosis.] Neurological Exam: [No focal neurologic deficit.] Psychiatric: Normal mood affect and normal mental status examination. Skin: No rashes - Labs CBC & Chem 7: 04/17/22 07:48 04/17/22 07:48 Labs: Abnormal Lab Results - Last 24 Hours (Table) 04/17/22 04/17/22 Range/Units 07:48 07:48 WBC 2.9 L (3.8-10.6) k/uL RBC 3.90 L (4.30-5.90) m/uL Hgb 11.7 L (13.0-17.5) gm/dL Hct 36.5 L (39.0-53.0) % Lymphocytes # (Manual) 0.73 L (1.0-4.8) k/uL Carbon Dioxide 31 H (22-30) mmol/L Creatinine 0.47 L (0.66-1.25) mg/dL Glucose 121 H (74-99) mg/dL Total Protein 5.7 L (6.3-8.2) g/dL Albumin 3.2 L (3.5-5.0) g/dL Microbiology - Last 24 Hours (Table) 04/12/22 23:23 Blood Culture - Preliminary Blood No Growth after 96 hours 04/15/22 01:50 Gram Stain - Preliminary Sputum Sputum Culture - Preliminary Assessment and Plan Assessment: Impression: Left lower lobe pneumonia, likely healthcare acquired pneumonia or even possibly hospital-acquired pneumonia Suspect sepsis and possible septic shock. Suspect pneumonia, patient had previous history of Pseudomonas and streptococcal pneumonia History of brain tumor. History of tracheostomy and respiratory failure. Recommendation: Continue Zosyn although cultures have been nondiagnostic Continue to monitor in the ICU for the next 24 hours to make sure that the pa tient is not going to require any pressors Continue nutritional support Continue GI and DVT prophylaxis Continue fluids We will continue to follow while in the ICU. Time with Patient: Less than 30
--- NOTE | 2022-04-17 15:39 | P.PN ---
Subjective Progress Note Date: 04/17/22 Principal diagnosis: Pneumonia and bacteremia Patient is a 21-year-old -[place] male with a past medical he significant for spina bifida on chronic trach and PEG presented to hospital with increasing shortness of breath concerning for pneumonia he also have a positive blood culture with coagulase-negative staph likely skin contamination. On today's evaluation that is 04/17/2022 the patient continues to be afebrile, the patient is breathing comfortably through the trach collar, the patient denies having any chest pain , the patient cough is decreased intensity and less productive sputum the patient denies having any abdominal pain no nausea no vomiting and no diarrhea Objective - Vital Signs Vital signs: Vital Signs Temp 98.2 F 04/17/22 08:00 Pulse 67 04/17/22 09:00 Resp 28 H 04/17/22 09:00 BP 96/53 04/17/22 09:00 Pulse Ox 95 04/17/22 09:00 FiO2 40 04/17/22 08:20 Intake & Output 04/16/22 04/17/22 04/17/22 18:59 06:59 18:59 Intake Total 1600 1790 470 Output Total 2225 1075 700 Balance -625 715 -230 Weight 67.8 kg Intake: IV 1050 1100 250 Piperacillin-Tazobactam 3 200 100 25 .375 gm In Sodium Chloride 0.9% 100 ml @ 25 mls/hr IVPB Q8HR [facility] Rx# :[id number] Potassium Chloride 10 meq 100 100 In Water For Injection 1 100ml.bag @ 100 mls/hr IVPB Q1H [facility] Rx#: [id number] Sodium Chloride 0.9% 1, 750 900 225 000 ml @ 20 mls/hr IV . Q24H [facility] Rx#:[id number] Tube Feeding 550 450 100 Other 240 120 Output: Urine 2225 1075 700 Other: Voiding Method Urinal Urinal Urinal # Voids 1 - Exam GENERAL DESCRIPTION: Young male lying in bed, no distress. No tachypnea or accessory muscle of respiration use. LUNGS: Unlabored breathing. Decreased breath sound at the base HEART: S1, S2, regular rate and rhythm. No loud murmur ABDOMEN: Soft, no tenderness , guarding or rigidity, no organomegaly EXTREMITIES: No edema of feet. - Labs CBC & Chem 7: 04/17/22 07:48 04/17/22 07:48 Labs: Abnormal Lab Results - Last 24 Hours (Table) 04/17/22 04/17/22 Range/Units 07:48 07:48 WBC 2.9 L (3.8-10.6) k/uL RBC 3.90 L (4.30-5.90) m/uL Hgb 11.7 L (13.0-17.5) gm/dL Hct 36.5 L (39.0-53.0) % Lymphocytes # (Manual) 0.73 L (1.0-4.8) k/uL Carbon Dioxide 31 H (22-30) mmol/L Creatinine 0.47 L (0.66-1.25) mg/dL Glucose 121 H (74-99) mg/dL Total Protein 5.7 L (6.3-8.2) g/dL Albumin 3.2 L (3.5-5.0) g/dL Microbiology - Last 24 Hours (Table) 04/12/22 23:23 Blood Culture - Preliminary Blood No Growth after 96 hours 04/15/22 01:50 Gram Stain - Preliminary Sputum Sputum Culture - Preliminary Assessment and Plan (1) CAP (community acquired pneumonia) Current Visit: Yes Status: Acute Code(s): J18.9 - PNEUMONIA, UNSPECIFIED ORGANISM SNOMED Code(s): 944668689 Plan: 1patient presented to hospital with sepsis patient did have a fever leukopenia source likely pneumonia with predominantly respiratory symptoms of increasing shortness of breath and cough possible gram-negative. 2 Positive blood culture with gram-positive cocci staph epi likely skin contamination patient has no clinical disease to go along with it. 3Sputum culture currently growing gram-negative with ID and sensitivities pending 4- Patient has shown clinical improvement and will continue with the Zosyn while waiting for the culture to finalize and monitor clinical course closely Time with Patient: Less than 30
[2022-04-18] MEDS: HYDROmorphone 0.5 MG/0.5 ML SYRINGE IVP PRN ×5 (01:20→20:26)
[2022-04-18] MEDS: GLYCOPYRROLATE 1 MG TAB PEG/G-TUBE PRN ×2 (02:56→23:01)
[2022-04-18] MEDS: KETOROLAC 15 MG/ML 1 ML VIAL IVP SCH ×4 (05:58→23:00)
[2022-04-18] MEDS: IPRATROPIUM-ALBUTEROL 3 ML NEB INHALATION SCH ×4 (07:58→19:28)
[2022-04-18] MEDS: ENOXAPARIN 40 MG/0.4 ML SYRINGE SQ SCH (08:27)
[2022-04-18] MEDS: methylPREDNISolone SOD SUCCI 40 MG/ML 1 ML VIAL IV SCH ×3 (08:27→23:00)
[2022-04-18] MEDS: PIPERACILLIN-TAZOBACTAM 3.375 GM in SODIUM CHLORIDE 0.9% 100 ML IVPB SCH ×3 (08:28→23:01)
--- NOTE | 2022-04-18 14:23 | P.PN ---
Subjective Progress Note Date: 04/18/22 Principal diagnosis: Acute on chronic hypoxic respiratory failure suspect sepsis, and septic shock. 21-year-old male with past medical history of brain tumor, dysphasia with trach and PEG who presents emergency department with productive cough. States he's had an increased amount of sputum production, cough and shortness of breath with fever that started yesterday. He was hospitalized a few months ago with similar complaint and ended up having pneumonia. He denies any sick contacts and also admits to generalized myalgias. This patient is known to me. The care of his h ospitalization. At that time, the patient had pneumonia with a combination of gram-negative bacteria including pseudomonas and strep. The patient was treated and the patient was discharged home and the patient is coming back with some increased sputum production and increased shortness of breath. No headache. No change in mental status. No nausea or vomiting. He is not eating any receiving enteral feeding for nutritional support. The patient is currently on room air oxygen. Patient has a white cell count of 3.3 with hemoglobin of 12.8 and the platelet count of 136. BMI of 0.6 and a sodium level is 138. The chest x-ray showing some atelectatic changes in lung bases. Question another . The left lung base was also seen. This is likely inflammatory. Patient has no specific complaints for now. He denies having any aspiration. Patient was reevaluated today. On 04/14/2022, patient does not seem to be doing well, he is hypotensive and having intermittent episodes of fever. Hence I recommended transferring the patient to the ICU. Patient is already on antibiotics in the form of Zosyn, I'm adding vancomycin, and I'm recommending referral to the ICU and referral to infectious disease, as well as referral to neurology. Patient will likely need to be placed on norepinephrine, he received already 2 L of IV fluid boluses, and his blood pressure remains marginal. Patient is also complaining of headaches. Remains on trach collar, and his O2 requirement seems to be going up Patient was reevaluated today on 04/15/22, patient remains in the ICU, I transferred the patient to ICU yesterday. Remains on trach collar at FiO2 at 40%. IV fluid 0.9 normal saline at 75 mL per hour, patient received significant amount of fluid boluses yesterday. He is off norepinephrine this morning. Remains on vancomycin and Zosyn, cultures are pending and patient is yet to be seen by infectious disease on consultation. I'll up chest x-ray this morning was ordered. And I'm suspecting that we may be dealing with pneumonia. Patient had previous history of Pseudomonas pneumonia and he is now on Zosyn and vancomycin empirically. Sputum cultures are pending, blood cultures show staph epidermidis./Contaminant. Serum cortisol is pending. Patient is feeling better today compared to yesterday. And again he seems to be more hemodynamically stable this morning off norepinephrine. WBC count is 3.3 hemoglobin is 11 and electrodes are normal. Profile is normal Reevaluated today on 04/16/22, patient remains in the ICU, remains on trach collar at 40%, he is off norepinephrine, remains on antibiotics in the form of vancomycin and Zosyn chest x-ray today is showing left lower lobe pneumonia cultures of the sputum are pending. Patient is receiving enteral feeding via PEG tube, is also receiving IV fluid at 75 mL/h, trach collar at 40%. Clinically the patient is feeling better. WBC count is 3.9 hemoglobin 11.7 and electrolytes are normal renal profile is normal Reevaluated today on 04/27/22, patient remains in the ICU, remains on 40% trach collar he is now only on Zosyn, his sputum cultures have been nondiagnostic nonetheless the patient clearly has a left lower lobe infiltrate/pneumonia. Remains on Zosyn, he is afebrile. He is on enteral feeding via PEG tube, he is also on IV fluid 0.9 normal saline at 75 mL per hour. Continues to have scattered rhonchi especially on the left side. WBC count is 2.9 hemoglobin is 11.7. Electrolytes are normal renal profile is normal Reevaluated today on 04/28/22, patient is in the ICU as an overflow, he is on 40% trach collar, doing well, sputum cultures are now positive for Pseudomonas. Patient has been on appropriate treatment all along. Clinically responding to treatment, his last chest x-ray showed left lower lobe pneumonia. Objective - Vital Signs Vital signs: Vital Signs Temp 98.1 F 04/18/22 12:00 Pulse 82 04/18/22 12:00 Resp 16 04/18/22 12:00 BP 113/72 04/18/22 12:00 Pulse Ox 93 L 04/18/22 12:00 FiO2 40 04/18/22 08:00 Intake & Output 04/17/22 04/18/22 04/18/22 18:59 06:59 18:59 Intake Total 695 1230 Output Total 1900 1100 Balance -1205 130 Weight 67.8 kg 68.9 kg Intake: IV 475 320 Piperacillin-Tazobactam 3 100 100 .375 gm In Sodium Chloride 0.9% 100 ml @ 25 mls/hr IVPB Q8HR [facility] Rx# :[id number] Sodium Chloride 0.9% 1, 375 220 000 ml @ 20 mls/hr IV . Q24H [facility] Rx#:[id number] Tube Feeding 100 550 Other 120 360 Output: Urine 1900 1100 Other: Voiding Method Urinal Urinal Urinal # Voids 3 - Exam Physical Exam: Revealed a 21-year-old male in no distress on trach collar. Head: Atraumatic, normocephalic. HEENT:[Neck is supple.] [No neck masses.] [No thyromegaly.] [No JVD.] Chest: Scattered rhonchi more so on the left side. And occasional wheezing Cardiac Exam: [Normal S1 and S2, no S3 gallop, no murmur.] Abdomen: [Soft, nontender, no megaly, no rebound, no guarding, normal bowel sounds.] PEG tube is intact Extremities: [No clubbing, no edema, no cyanosis.] Neurological Exam: [No focal neurologic deficit.] Psychiatric: Normal mood affect and normal mental status examination. Skin: No rashes - Labs CBC & Chem 7: 04/17/22 07:48 04/17/22 07:48 Labs: Microbiology - Last 24 Hours (Table) 04/15/22 01:50 Gram Stain - Final Sputum Sputum Culture - Final Pseudomonas aeruginosa Pseudomonas aeruginosa#2 04/12/22 23:23 Blood Culture - Preliminary Blood No Growth after 120 hours Assessment and Plan Assessment: Impression: Left lower lobe pneumonia, secondary to pseudomonas aeruginosa Suspect sepsis and possible septic shock. History of brain tumor. History of tracheostomy and respiratory failure. Recommendation: Continue Zosyn for Pseudomonas pneumonia When transferred out of the ICU Continue nutritional support Continue GI and DVT prophylaxis Continue bronchodilators and steroids. Will follow Time with Patient: Less than 30
[2022-04-18] MEDS: SODIUM CHLORIDE 0.9% 1,000 ML IV SCH (20:25)
[2022-04-18] MEDS: HYDROcodone/APAP 15 ML SOLUTION PO PRN (23:00)
--- NOTE | 2022-04-19 00:53 | P.PN ---
Subjective Progress Note Date: 04/18/22 Principal diagnosis: Pneumonia and bacteremia Patient is a 21-year-old -[place] male with a past medical he significant for spina bifida on chronic trach and PEG presented to hospital with increasing shortness of breath concerning for pneumonia he also have a positive blood culture with coagulase-negative staph likely skin contamination. On today's evaluation that is 04/18/2022 the patient remains to be afebrile, the patient is breathing comfortably through the trach collar, the patient denies having any chest pain , the patient cough has decreased intensity and less productive sputum the patient denies nausea vomiting or abdominal pain and no diarrhea Objective - Vital Signs Vital signs: Vital Signs Temp 98.1 F 04/18/22 12:00 Pulse 82 04/18/22 12:00 Resp 16 04/18/22 12:00 BP 113/72 04/18/22 12:00 Pulse Ox 93 L 04/18/22 12:00 FiO2 40 04/18/22 08:00 Intake & Output 04/17/22 04/18/22 04/18/22 18:59 06:59 18:59 Intake Total 695 1230 Output Total 1900 1100 300 Balance -1205 130 -300 Weight 67.8 kg 68.9 kg Intake: IV 475 320 Piperacillin-Tazobactam 3 100 100 .375 gm In Sodium Chloride 0.9% 100 ml @ 25 mls/hr IVPB Q8HR [facility] Rx# :[id number] Sodium Chloride 0.9% 1, 375 220 000 ml @ 20 mls/hr IV . Q24H [facility] Rx#:[id number] Tube Feeding 100 550 Other 120 360 Output: Urine 1900 1100 300 Other: Voiding Method Urinal Urinal Urinal # Voids 3 # Bowel Movements 1 - Exam GENERAL DESCRIPTION: Young male lying in bed, no distress. No tachypnea or accessory muscle of respiration use. LUNGS: Unlabored breathing. Decreased breath sound at the base HEART: S1, S2, regular rate and rhythm. No loud murmur ABDOMEN: Soft, no tenderness , guarding or rigidity, no organomegaly EXTREMITIES: No edema of feet. - Labs CBC & Chem 7: 04/17/22 07:48 04/17/22 07:48 Labs: Microbiology - Last 24 Hours (Table) 04/15/22 01:50 Gram Stain - Final Sputum Sputum Culture - Final Pseudomonas aeruginosa Pseudomonas aeruginosa#2 04/12/22 23:23 Blood Culture - Preliminary Blood No Growth after 120 hours Assessment and Plan (1) CAP (community acquired pneumonia) Current Visit: Yes Status: Acute Code(s): J18.9 - PNEUMONIA, UNSPECIFIED ORGANISM SNOMED Code(s): 609176117 Plan: 1patient presented to hospital with sepsis patient did have a fever leukopenia source likely pneumonia with predominantly respiratory symptoms of increasing shortness of breath and cough possible gram-negative. 2 Positive blood culture with gram-positive cocci staph epi likely skin contamination patient has no clinical disease to go along with it. 3Sputum culture has been finalized with Pseudomonas aeruginosa that is sensitive to Zosyn and Cipro 4- Patient has shown clinical improvement and will continue with the Zosyn however the patient will be able to finish therapy with oral Cipro Time with Patient: Less than 30
[2022-04-19] MEDS: HYDROmorphone 0.5 MG/0.5 ML SYRINGE IVP PRN ×6 (01:29→23:20)
[2022-04-19] MEDS: KETOROLAC 15 MG/ML 1 ML VIAL IVP SCH ×4 (05:16→22:26)
--- NOTE | 2022-04-19 07:08 | XR ---
EXAMINATION TYPE: XR chest 1V portable DATE OF EXAM: 04/19/2022 CLINICAL HISTORY: Difficulty breathing and left lower lobe infiltrate progress study. TECHNIQUE: Single AP portable upright view of the chest is obtained. COMPARISON: Chest x-ray from 3 days earlier and older studies. FINDINGS: Stable left-sided PICC line. Stable tracheostomy tube. Improved tiny left pleural effusion. Persistent retrocardiac consolidation, possible chronic scarring . Right lung remains clear. Cardiac silhouette size stable and within normal limits. Osseous structur es are intact. IMPRESSION: Tiny left pleural effusion improved from prior. Stable chronic retrocardiac consolidation and/or scarring. No new focal infiltrate.
[2022-04-19] MEDS: IPRATROPIUM-ALBUTEROL 3 ML NEB INHALATION SCH ×4 (07:21→19:53)
[2022-04-19] MEDS: ENOXAPARIN 40 MG/0.4 ML SYRINGE SQ SCH (09:59)
[2022-04-19] MEDS: PIPERACILLIN-TAZOBACTAM 3.375 GM in SODIUM CHLORIDE 0.9% 100 ML IVPB SCH (09:59)
[2022-04-19] MEDS: methylPREDNISolone SOD SUCCI 40 MG/ML 1 ML VIAL IV SCH ×3 (09:59→23:25)
--- NOTE | 2022-04-19 11:26 | P.PN ---
Subjective Progress Note Date: 04/19/22 21-year-old male with past medical history of brain tumor, dysphasia with trach and PEG who presents emergency department with productive cough. States he's had an increased amount of sputum production, cough and shortness of breath with fever that started yesterday. He was hospitalized a few months ago with similar complaint and ended up having pneumonia. He denies any sick contacts and also admits to generalized myalgias. This patient is known to me. The care of his hospitalization. At that time, the patient had pneumonia with a combination of gram-negative bacteria including pseudomonas and strep. The patient was treated and the patient was discharged home and the patient is coming back with some increased sputum production and increased shortness of breath. No headache. No change in mental status. No nausea or vomiting. He is not eating any receiving enteral feeding for nutritional support. The patient is currently on room air oxygen. Patient has a white cell count of 3.3 with hemoglobin of 12.8 and the platelet count of 136. BMI of 0.6 and a sodium level is 138. The chest x-ray showing some atelectatic changes in lung bases. Question another . The left lung base was also seen. This is likely inflammatory. Patient has no specific complaints for now. He denies having any aspiration. Patient was reevaluated today. On 04/14/2022, patient does not seem to be doing well, he is hypotensive and having intermittent episodes of fever. Hence I recommended transferring the patient to the ICU. Patient is already on antibiotics in the form of Zosyn, I'm adding vancomycin, and I'm recommending referral to the ICU and referral to infectious disease, as well as referral to neurology. Patient will likely need to be placed on norepinephrine, he received already 2 L of IV fluid boluses, and his blood pressure remains marginal. Patient is also complaining of headaches. Remains on trach collar, and his O2 requirement seems to be going up Patient was reevaluated today on 04/15/22, patient remains in the ICU, I transferred the patient to ICU yesterday. Remains on trach collar at FiO2 at 40%. IV fluid 0.9 normal saline at 75 mL per hour, patient received significant amount of fluid boluses yesterday. He is off norepinephrine this morning. Remains on vancomycin and Zosyn, cultures are pending and patient is yet to be seen by infectious disease on consultation. I'll up chest x-ray this morning was ordered. And I'm suspecting that we may be dealing with pneumonia. Patient had previous history of Pseudomonas pneumonia and he is now on Zosyn and van comycin empirically. Sputum cultures are pending, blood cultures show staph epidermidis./Contaminant. Serum cortisol is pending. Patient is feeling better today compared to yesterday. And again he seems to be more hemodynamically stable this morning off norepinephrine. WBC count is 3.3 hemoglobin is 11 and electrodes are normal. Profile is normal Reevaluated today on 04/16/22, patient remains in the ICU, remains on trach collar at 40%, he is off norepinephrine, remains on antibiotics in the form of vancomycin and Zosyn chest x-ray today is showing left lower lobe pneumonia cultures of the sputum are pending. Patient is receiving enteral feeding via PEG tube, is also receiving IV fluid at 75 mL/h, trach collar at 40%. Clinically the patient is feeling better. WBC count is 3.9 hemoglobin 11.7 and electrolytes are normal renal profile is normal Reevaluated today on 04/27/22, patient remains in the ICU, remains on 40% trach collar he is now only on Zosyn, his sputum cultures have been nondiagnostic nonetheless the patient clearly has a left lower lobe infiltrate/pneumonia. Remains on Zosyn, he is afebrile. He is on enteral feeding via PEG tube, he is also on IV fluid 0.9 normal saline at 75 mL per hour. Continues to have scattered rhonchi especially on the left side. WBC count is 2.9 hemoglobin is 11.7. Electrolytes are normal renal profile is normal Reevaluated today on 04/28/22, patient is in the ICU as an overflow, he is on 40% trach collar, doing well, sputum cultures are now positive for Pseudomonas. Patient has been on appropriate treatment all along. Clinically responding to treatment, his last chest x-ray showed left lower lobe pneumonia. on the regular medical floor. He is sitting up in bed. Awake and alert in no acute distress. Less cough and congestion. He is on room air oxygen. Chest x- ray shows improvement in the left lower lobe infiltrate. Sputum cultures were positive for pseudomonas aeruginosa. He is currently on Zosyn. Objective - Vital Signs Vital signs: Vital Signs Temp 98.6 F 04/19/22 04:40 Pulse 81 04/19/22 09:09 Resp 16 04/19/22 08:10 BP 118/69 04/19/22 09:09 Pulse Ox 93 L 04/19/22 04:40 FiO2 40 04/18/22 19:27 Intake & Output 04/18/22 04/19/22 04/19/22 18:59 06:59 18:59 Intake Total 0 300 Output Total 300 350 Balance -300 -50 Weight 63.5 kg Intake: IV 300 Piperacillin-Tazobactam 3 100 .375 gm In Sodium Chloride 0.9% 100 ml @ 25 mls/hr IVPB Q8HR [facility] Rx# :[id number] Sodium Chloride 0.9% 1, 200 000 ml @ 20 mls/hr IV . Q24H [facility] Rx#:[id number] Oral 0 Output: Urine 300 350 Other: Voiding Method Urinal Urinal Urinal # Voids 600 # Bowel Movements 1 - Exam GENERAL EXAM: Alert, pleasant 21-year-old male, on room air oxygen, comfortable in no apparent distress. HEAD: Normocephalic. EYES: Normal reaction of pupils, equal size. NOSE: Clear with pink turbinates. THROAT: Tracheostomy tube secured in place. No erythema or exudates. NECK: No masses, no JVD. CHEST: No chest wall deformity. LUNGS: Equal air entry with bilateral scattered rhonchi. CVS: S1 and S2 normal with no audible murmur, regular rhythm. ABDOMEN: PEG tube in place. No hepatosplenomegaly, normal bowel sounds, no guarding or rigidity. SPINE: No scoliosis or deformity SKIN: No rashes CENTRAL NERVOUS SYSTEM: No focal deficits, tone is normal in all 4 extremities. EXTREMITIES: There is no peripheral edema. No clubbing, no cyanosis. Peripheral pulses are intact. - Labs CBC & Chem 7: 04/17/22 07:48 04/17/22 07:48 Labs: Microbiology - Last 24 Hours (Table) 04/12/22 23:23 Blood Culture - Final Blood No Growth after 144 hours 04/15/22 01:50 Gram Stain - Final Sputum Sputum Culture - Final Pseudomonas aeruginosa Pseudomonas aeruginosa#2 Assessment and Plan Assessment: Acute hypoxemic respiratory failure secondary to left lower lobe pneumonia, secondary to pseudomonas aeruginosa. Currently on Zosyn Suspect sepsis and possible septic shock. History of brain tumor. History of tracheostomy and respiratory failure. Plan: The patient was seen and evaluated Chest x-ray medications reviewed Improved and on room air Discontinue Zosyn Initiate Levaquin 750 mg via PEG tube 1 week Probably home in the a.m. I have personally seen and examined the patient, performed the documentation and the assessment and plan as written. Number of minutes spent on the visit: 10.
[2022-04-19] MEDS: GLYCOPYRROLATE 1 MG TAB PEG/G-TUBE PRN (17:23)
[2022-04-19] MEDS: SODIUM CHLORIDE 0.9% 1,000 ML IV SCH (23:25)
--- NOTE | 2022-04-20 02:26 | P.PN ---
Subjective Progress Note Date: 04/19/22 21-year-old male with history of brain tumor came in with Complaints of Fever Shortness of Breath and Increased Secretions and Thick Secretions from the Tracheostomy Patient Has a Tracheostomy for Many Years. Patient Was Recently Admitted and Treated for Pneumonia and Sputum at That Time Showed Pseudomonas and Streptococci. Patient Was Started on Zosyn Again Chest X-Ray Showing Some Atelectatic Changes. Patient Denied Any Dysuria Denied Any Nausea Vomiting.. 04/14/2022 Patient is in the medical floor. Awake alert and oriented. Currently on trach collar and oxygen requirement is increasing. Continues to be hypotensive and has been febrile with T-max 103.1. Patient continues to be tachycardic and hypotensive. Patient was given IV fluid bolus and is being transferred to MICU for possible pressor support. Continued on antibiotics in the form of Zosyn and vancomycin was added. Denied any complaints of chest pain. No worsening shortness of breath. Complains of headache. No nausea vomiting abdominal pain or diarrhea. Laboratory data showed WBC 4.01 hemoglobin 10.9 and platelets 150 Sodium 134 potassium 4.5 chloride 100 bicarb is 13.2 BUN 12.20 creatinine 0.7 and blood sugar is 115 and calcium 8.1. UA negative for infection and coronavirus, influenza a and B PCR negative. Pulmonary is on board. 04/15/2020 Patient is currently in the MICU. Awake alert and oriented x3. Remains on oxygen via trach collar. Blood pressure did improve and is off pressor support this morning. Patient denies any chest pain. Cough without any sputum production. Currently on tube feeding and antibiotics in the form of vancomycin and Zosyn. Patient is also on IV hydration with normal saline. Laboratory showed WBC 3.3 hemoglobin 11.0 and platelets 142, sodium 135 potassium 4.2 chloride 102 bicarb is 26 BUN 9 and creatinine 0.5 and calcium 7.7. Blood cultures showed coagulase-negative staph. Pulmonary and ID is on board. 04/19/2022 Patient is currently in the right left foot. Awake alert [place] x3. Saturating well room air via tracheal cannula. Chest x-ray showed improvement in the left lower lobe pneumonia. Patient is being current antibiotics in the form of Zosyn. Sputum culture showed Pseudomonas aeruginosa. Pulmonary is on board. Lab data reviewed. Current medications reviewed. Objective - Vital Signs Vital signs: Vital Signs Temp 98.4 F 04/19/22 18:20 Pulse 84 04/19/22 20:06 Resp 17 04/19/22 18:20 BP 112/70 04/19/22 18:20 Pulse Ox 94 L 04/19/22 18:20 FiO2 35 04/19/22 14:51 Intake & Output 04/19/22 04/19/22 04/20/22 06:59 18:59 06:59 Intake Total 300 Output Total 350 200 Balance -50 -200 Weight 63.5 kg Intake: IV 300 Piperacillin-Tazobactam 3 100 .375 gm In Sodium Chloride 0.9% 100 ml @ 25 mls/hr IVPB Q8HR [facility] Rx# :[id number] Sodium Chloride 0.9% 1, 200 000 ml @ 20 mls/hr IV . Q24H [facility] Rx#:[id number] Output: Urine 350 200 Other: Voiding Method Urinal Urinal - Exam PHYSICAL EXAMINATION: Patient is lying in the bed comfortably, no acute distress, awake alert and oriented.. HEENT: Normocephalic. Neck is supple. Pupils reactive. Nostrils clear. Oral cavity is moist. Neck reveals no JVD, carotid bruits, or thyromegaly. CHEST EXAMINATION: Patient is on trach collar.. Symmetrical expansion. Bilateral coarse sounds. Minimal rhonchi. CARDIAC: Normal S1, S2 with no gallops. No murmurs ABDOMEN: Soft. Bowel sounds present. Nontender. No organomegaly. No abdominal bruits. Extremities: reveal no edema. No clubbing or cyanosis Neurologically awake, alert, oriented x3 with well-coordinated movements. No focal deficits noted Skin: No rash or skin lesions. Psychiatric: Coperative. Nonsuicidal, Musculoskeletal: No joint swelling or deformity. Normal range of motion. - Labs CBC & Chem 7: 04/17/22 07:48 04/17/22 07:48 Labs: Microbiology - Last 24 Hours (Table) 04/12/22 23:23 Blood Culture - Final Blood No Growth after 144 hours Assessment and Plan Assessment: Assessment and plan -Acute hypoxic respiratory failure possibly secondary pneumonia. Sputum culture is growing Pseudomonas aeruginosa. Sepsis/septic shock requiring pressor support. off pressors now. History of tracheostomy -History of brain cancer status post surgical excision and chemoradiation with the tracheostomy and PEG tube -Continued nicotine use: Counseling was provided DVT prophylaxis: Lovenox Plan: Patient will be continued on IV hydration and antibiotics in the form of Zosyn. negativel blood cultures. Continue with trach care. Patient is on room air. Currently off pressor support. Repeat CBC and BMP tomorrow. Pulmonary and ID is on board. Prognosis is guarded. Time with Patient: Greater than 30
[2022-04-20] MEDS: HYDROmorphone 0.5 MG/0.5 ML SYRINGE IVP PRN ×2 (05:27→09:44)
[2022-04-20] MEDS: ENOXAPARIN 40 MG/0.4 ML SYRINGE SQ SCH (07:42)
[2022-04-20] MEDS: methylPREDNISolone SOD SUCCI 40 MG/ML 1 ML VIAL IV SCH (07:43)
[2022-04-20] MEDS: IPRATROPIUM-ALBUTEROL 3 ML NEB INHALATION SCH ×3 (08:43→15:12)
[2022-04-20] MEDS: GLYCOPYRROLATE 1 MG TAB PEG/G-TUBE PRN (08:49)
[2022-04-20] MEDS ORDERED: LEVOFLOXACIN 750 MG TAB PO SCH (09:00)
[2022-04-20 09:38] LABS: Basophils # (A) 0.01 X 10*3/uL (0.00-0.10); Basophils % (A) 0.1 %; Eosinophils # (A) 0 X 10*3/uL (0.04-0.35); Eosinophils % (A) 0 %; HCT 36.9 % (39.6-50.0); Immature Grans, Automated 0.4 %; Lymphocytes # (A) 1.18 X 10*3/uL (0.90-5.00); Lymphocytes % (A) 14.1 %; MCH 29.9 pg (27.0-32.0); MCHC 32.5 g/dL (32.0-37.0); MCV 91.8 fL (80.0-97.0); Mean Platelet Volume 9.6 fL (9.5-12.2); Monocytes # (A) 0.42 X 10*3/uL (0.20-1.00); NRBC Per 100 WBC 0 /100 WBCS (0.0-0.0); Neutrophils # (A) 6.75 X 10*3/uL (1.80-7.70); Neutrophils % (A) 80.4 %; Platelet Count 238 X 10*3/uL (140-440); RBC 4.02 X 10*6/uL (4.40-5.60); RDW 14.7 % (11.5-14.5); WBC 8.39 X 10*3/uL (4.50-10.00)
[2022-04-20 09:53] LABS: African American GFR (CKD) 179.5 (60.0-200.0); Anion Gap 7.8 mmol/L (10.00-18.00); BUN/Creat Ratio 44.6 Ratio (12.00-20.00); Blood Urea Nitrogen 22.3 mg/dL (9.0-27.0); Calcium 9.2 mg/dL (8.7-10.3); Carbon Dioxide 32.2 mmol/L (20.0-27.5); Non-African American GFR(CKD) 154.9 (60.0-200.0)
[2022-04-20] MEDS: ACETAMINOPHEN TAB 325 MG TAB PO PRN (11:18)
--- NOTE | 2022-04-20 11:42 | P.PN ---
Subjective Progress Note Date: 04/19/22 Principal diagnosis: Pneumonia and bacteremia Patient is a 21-year-old -[place] male with a past medical he significant for spina bifida on chronic trach and PEG presented to hospital with increasing shortness of breath concerning for pneumonia he also have a positive blood culture with coagulase-negative staph likely skin contamination. On today's evaluation that is 04/19/2022 the patient continues to be afebrile, the patient is breathing comfortably through the trach collar, the patient denies having any chest pain , the patient cough has decreased intensity and le ss productive sputum the patient denies nausea vomiting or abdominal pain and no diarrhea, feeling better wants to go home Objective - Vital Signs Vital signs: Vital Signs Temp 98.3 F 04/19/22 11: Pulse 76 04/19/22 11: Resp 17 04/19/22 11:22 BP 127/77 04/19/22 11:22 Pulse Ox 90 L 04/19/22 11: FiO2 40 04/18/22 19:27 Intake & Output 04/18/22 04/19/22 04/19/22 18:59 06:59 18:59 Intake Total 0 300 Output Total 300 350 Balance -300 -50 Weight 63.5 kg Intake: IV 300 Piperacillin-Tazobactam 3 100 .375 gm In Sodium Chloride 0.9% 100 ml @ 25 mls/hr IVPB Q8HR [facility] Rx# :[id number] Sodium Chloride 0.9% 1, 200 000 ml @ 20 mls/hr IV . Q24H [facility] Rx#:[id number] Oral 0 Output: Urine 300 350 Other: Voiding Method Urinal Urinal Urinal # Voids 600 # Bowel Movements 1 - Exam GENERAL DESCRIPTION: Young male lying in bed, no distress. No tachypnea or accessory muscle of respiration use. LUNGS: Unlabored breathing. Decreased breath sound at the base HEART: S1, S2, regular rate and rhythm. No loud murmur ABDOMEN: Soft, no tenderness , guarding or rigidity, no organomegaly EXTREMITIES: No edema of feet. - Labs CBC & Chem 7: 04/20/22 05:18 04/20/22 05:18 Labs: Microbiology - Last 24 Hours (Table) 04/12/22 23:23 Blood Culture - Final Blood No Growth after 144 hours Assessment and Plan (1) CAP (community acquired pneumonia) Current Visit: Yes Status: Acute Code(s): J18.9 - PNEUMONIA, UNSPECIFIED ORGANISM SNOMED Code(s): 368830619 Plan: 1patient presented to hospital with sepsis patient did have a fever leukopenia source likely pneumonia with predominantly respiratory symptoms of increasing shortness of breath and cough possible gram-negative. 2 Positive blood culture with gram-positive cocci staph epi likely skin contamination patient has no clinical disease to go along with it. 3Sputum culture has been finalized with Pseudomonas aeruginosa that is sensitive to Zosyn and Cipro 4- Patient has shown clinical improvement and will continue with the Zosyn however the patient will be able to finish therapy with oral Cipro 7-10 days on discharge Time with Patient: Less than 30
--- NOTE | 2022-04-20 11:43 | P.PN ---
Subjective Progress Note Date: 04/20/22 Principal diagnosis: Pneumonia and bacteremia Patient is a 21-year-old -[place] male with a past medical he significant for spina bifida on chronic trach and PEG presented to hospital with increasing shortness of breath concerning for pneumonia he also have a positive blood culture with coagulase-negative staph likely skin contamination. On today's evaluation that is 04/20/2022 the patient denies any fever or any chills, the patient is breathing comfortably through the trach collar, the patient denies chest pain , the patient cough has decreased intensity and less productive sputum the patient denies nausea vomiting or abdominal pain and no diarrhea, no new symptoms Objective - Vital Signs Vital signs: Vital Signs Temp 97.7 F 04/20/22 04:02 Pulse 61 04/20/22 04:02 Resp 16 04/20/22 04:02 BP 121/80 04/20/22 04:02 Pulse Ox 96 04/20/22 04:02 FiO2 35 04/20/22 08:41 Intake & Output 04/19/22 04/20/22 04/20/22 18:59 06:59 18:59 Intake Total 200 Output Total 200 300 300 Balance -200 -100 -300 Weight 63.5 kg Intake: Tube Feeding 200 Output: Urine 200 300 300 Other: Voiding Method Urinal Urinal - Exam GENERAL DESCRIPTION: Young male lying in bed, no distress. No tachypnea or accessory muscle of respiration use. LUNGS: Unlabored breathing. Decreased breath sound at the base HEART: S1, S2, regular rate and rhythm. No loud murmur ABDOMEN: Soft, no tenderness , guarding or rigidity, no organomegaly EXTREMITIES: No edema of feet. - Labs CBC & Chem 7: 04/20/22 05:18 04/20/22 05:18 Labs: Abnormal Lab Results - Last 24 Hours (Table) 04/20/22 04/20/22 Range/Units 05:18 05:18 RBC 4.02 L (4.40-5.60) X 10*6/uL Hgb 12.0 L (13.0-17.0) g/dL Hct 36.9 L (39.6-50.0) % RDW 14.7 H (11.5-14.5) % Eosinophils # 0 L (0.04-0.35) X 10*3/uL Carbon Dioxide 32.2 H (20.0-27.5) mmol/L Anion Gap 7.80 L (10.00-18.00) mmol/L Creatinine 0.5 L (0.6-1.5) mg/dL BUN/Creatinine Ratio 44.60 H (12.00-20.00) Ratio Glucose 148 H (70-110) mg/dL Assessment and Plan (1) CAP (community acquired pneumonia) Current Visit: Yes Status: Acute Code(s): J18.9 - PNEUMONIA, UNSPECIFIED ORGANISM SNOMED Code(s): 875682367 Plan: 1patient presented to hospital with sepsis patient did have a fever leukopenia source likely pneumonia with predominantly respiratory symptoms of increasing shortness of breath and cough possible gram-negative. 2 Positive blood culture with gram-positive cocci staph epi likely skin c ontamination patient has no clinical disease to go along with it. 3Sputum culture has been finalized with Pseudomonas aeruginosa that is sensitive to Zosyn and Cipro 4- Patient has shown clinical improvement and antibiotic has been switched to Levaquin however will prefer Cipro for Pseudomonas on discharge prescription sent to the pharmacy Time with Patient: Less than 30
[2022-04-20 11:50] VITALS: BP 94/50; PULSE 69; RESP 18; TEMP 97.8
--- NOTE | 2022-04-20 12:09 | P.PN ---
Subjective Progress Note Date: 04/20/22 21-year-old male with past medical history of brain tumor, dysphasia with trach and PEG who presents emergency department with productive cough. States he's had an increased amount of sputum production, cough and shortness of breath with fever that started yesterday. He was hospitalized a few months ago with similar complaint and ended up having pneumonia. He denies any sick contacts and also admits to generalized myalgias. This patient is known to me. The care of his hospitalization. At that time, the patient had pneumonia with a combination of gram-negative bacteria including pseudomonas and strep. The patient was treated and the patient was discharged home and the patient is coming back with some increased sputum production and increased shortness of breath. No headache. No change in mental status. No nausea or vomiting. He is not eating any receiving enteral feeding for nutritional support. The patient is currently on room air oxygen. Patient has a white cell count of 3.3 with hemoglobin of 12.8 and the platelet count of 136. BMI of 0.6 and a sodium level is 138. The chest x-ray showing some atelectatic changes in lung bases. Question another . The left lung base was also seen. This is likely inflammatory. Patient has no specific complaints for now. He denies having any aspiration. Patient was reevaluated today. On 04/14/2022, patient does not seem to be doing well, he is hypotensive and having intermittent episodes of fever. Hence I recommended transferring the patient to the ICU. Patient is already on antibiotics in the form of Zosyn, I'm adding vancomycin, and I'm recommending referral to the ICU and referral to infectious disease, as well as referral to neurology. Patient will likely need to be placed on norepinephrine, he received already 2 L of IV fluid boluses, and his blood pressure remains marginal. Patient is also complaining of headaches. Remains on trach collar, and his O2 requirement seems to be going up Patient was reevaluated today on 04/15/22, patient remains in the ICU, I transferred the patient to ICU yesterday. Remains on trach collar at FiO2 at 40%. IV fluid 0.9 normal saline at 75 mL per hour, patient received significant amount of fluid boluses yesterday. He is off norepinephrine this morning. Remains on vancomycin and Zosyn, cultures are pending and patient is yet to be seen by infectious disease on consultation. I'll up chest x-ray this morning was ordered. And I'm suspecting that we may be dealing with pneumonia. Patient had previous history of Pseudomonas pneumonia and he is now on Zosyn and van comycin empirically. Sputum cultures are pending, blood cultures show staph epidermidis./Contaminant. Serum cortisol is pending. Patient is feeling better today compared to yesterday. And again he seems to be more hemodynamically stable this morning off norepinephrine. WBC count is 3.3 hemoglobin is 11 and electrodes are normal. Profile is normal Reevaluated today on 04/16/22, patient remains in the ICU, remains on trach collar at 40%, he is off norepinephrine, remains on antibiotics in the form of vancomycin and Zosyn chest x-ray today is showing left lower lobe pneumonia cultures of the sputum are pending. Patient is receiving enteral feeding via PEG tube, is also receiving IV fluid at 75 mL/h, trach collar at 40%. Clinically the patient is feeling better. WBC count is 3.9 hemoglobin 11.7 and electrolytes are normal renal profile is normal Reevaluated today on 04/27/22, patient remains in the ICU, remains on 40% trach collar he is now only on Zosyn, his sputum cultures have been nondiagnostic nonetheless the patient clearly has a left lower lobe infiltrate/pneumonia. Remains on Zosyn, he is afebrile. He is on enteral feeding via PEG tube, he is also on IV fluid 0.9 normal saline at 75 mL per hour. Continues to have scattered rhonchi especially on the left side. WBC count is 2.9 hemoglobin is 11.7. Electrolytes are normal renal profile is normal Reevaluated today on 04/28/22, patient is in the ICU as an overflow, he is on 40% trach collar, doing well, sputum cultures are now positive for Pseudomonas. Patient has been on appropriate treatment all along. Clinically responding to treatment, his last chest x-ray showed left lower lobe pneumonia. on the regular medical floor. He is sitting up in bed. Awake and alert in no acute distress. Less cough and congestion. He is on room air oxygen. Chest x- ray shows improvement in the left lower lobe infiltrate. Sputum cultures were positive for pseudomonas aeruginosa. He is currently on Zosyn. The patient is seen today 04/20/2021 on the regular medical floor. He is currently resting comfortably in bed. Awake and alert in no acute distress. Maintaining O2 saturations in the 90s on room air. Denies any worsening shortness of breath, cough or congestion. Follow-up chest x-ray reveals near complete resolution of the left lower lobe infiltrate. His sputum culture was positive for pseudomonas aeruginosa. Follow-up blood cultures revealed no growth. White count 8.3. Hemoglobin 12.0. Platelets 238. Sodium 142. Potassium 4.0. BUN 22. Creatinine 0.5. Glucose 148. He is maintained on oral Levaquin, DuoNeb inhalations, IV solu Medrol. Objective - Vital Signs Vital signs: Vital Signs Temp 97.8 F 04/20/22 11:00 Pulse 69 04/20/22 11:00 Resp 18 04/20/22 11:00 BP 94/50 04/20/22 11:00 Pulse Ox 99 04/20/22 11:00 FiO2 35 04/20/22 08:41 Intake & Output 04/19/22 04/20/22 04/20/22 18:59 06:59 18:59 Intake Total 200 Output Total 200 300 300 Balance -200 -100 -300 Weight 63.5 kg Intake: Tube Feeding 200 Output: Urine 200 300 300 Other: Voiding Method Urinal Urinal - Exam GENERAL EXAM: Alert, pleasant 21-year-old male, on room air oxygen, comfortable in no apparent distress. HEAD: Normocephalic. EYES: Normal reaction of pupils, equal size. NOSE: Clear with pink turbinates. THROAT: Tracheostomy tube secured in place. No erythema or exudates. NECK: No masses, no JVD. CHEST: No chest wall deformity. LUNGS: Equal air entry with bilateral scattered rhonchi. CVS: S1 and S2 normal with no audible murmur, regular rhythm. ABDOMEN: PEG tube in place. No hepatosplenomegaly, normal bowel sounds, no guarding or rigidity. SPINE: No scoliosis or deformity SKIN: No rashes CENTRAL NERVOUS SYSTEM: No focal deficits, tone is normal in all 4 extremities. EXTREMITIES: There is no peripheral edema. No clubbing, no cyanosis. Peripheral pulses are intact. - Labs CBC & Chem 7: 04/20/22 05:18 04/20/22 05:18 Labs: Abnormal Lab Results - Last 24 Hours (Table) 04/20/22 04/20/22 Range/Units 05:18 05:18 RBC 4.02 L (4.40-5.60) X 10*6/uL Hgb 12.0 L (13.0-17.0) g/dL Hct 36.9 L (39.6-50.0) % RDW 14.7 H (11.5-14.5) % Eosinophils # 0 L (0.04-0.35) X 10*3/uL Carbon Dioxide 32.2 H (20.0-27.5) mmol/L Anion Gap 7.80 L (10.00-18.00) mmol/L Creatinine 0.5 L (0.6-1.5) mg/dL BUN/Creatinine Ratio 44.60 H (12.00-20.00) Ratio Glucose 148 H (70-110) mg/dL Assessment and Plan Assessment: Acute hypoxemic respiratory failure secondary to left lower lobe pneumonia, secondary to pseudomonas aeruginosa. Currently on Levaquin Suspect sepsis and possible septic shock. History of brain tumor. History of tracheostomy and respiratory failure. Plan: The patient was seen and evaluated Labs and medications reviewed Improved and on room air Cleared for discharge from the pulmonary standpoint ID services plans to discharge patient home on Cipro Follow-up in the office in 1 to 2. I have personally seen and examined the patient, performed the documentation and the assessment and plan as written. Number of minutes spent on the visit: 10.
[2022-04-20 14:18] VITALS: BMI 19.5
== END 2022-04-20 17:12 | disposition home or self-care (01) | DRG 871 ==
LOC: EC 17:10 → 4SSUR 23:19 → 2SICU 04-14 15:00 → 5NMEDONC 04-18 10:12
PROVIDERS: ADMIT Internal Medicine; ATTEND Internal Medicine
PROC: 3E033XZ Introduction of Vasopressor into Peripheral Vein, Percutaneous Approach (ICD-10-PCS; principal; 2022-04-14)
DX: A40.9 Streptococcal sepsis, unspecified (principal); J15.1 Pneumonia due to Pseudomonas; J96.21 Acute and chronic respiratory failure with hypoxia; R65.21 Severe sepsis with septic shock; J90 Pleural effusion, not elsewhere classified; J98.11 Atelectasis; R47.02 Dysphasia; F90.9 Attention-deficit hyperactivity disorder, unspecified type; F17.210 Nicotine dependence, cigarettes, uncomplicated; D72.819 Decreased white blood cell count, unspecified; E86.0 Dehydration; R53.81 Other malaise; Y95 Nosocomial condition; Z20.822 Contact with and (suspected) exposure to COVID-19; J20.2 Acute bronchitis due to streptococcus; Q05.9 Spina bifida, unspecified; Z93.1 Gastrostomy status; Z93.0 Tracheostomy status; Z85.841 Personal history of malignant neoplasm of brain; Z92.21 Personal history of antineoplastic chemotherapy; Z92.3 Personal history of irradiation; Z86.19 Personal history of other infectious and parasitic diseases
CPT/HCPCS: 36415; 36573; 71045; 71046; 80048; 80053; 80202; 81003; 82533; 83605; 85025; 85027; 87040; 87070; 87077; 87186; 87205; 87502; 87635; 94640; 94760; 96361; 96374; 96376; 99285